=== PATIENT | male | born 1945 | race Caucasian/White ===

== ENCOUNTER 2025-04-16 09:38 | Outpatient (REF) | payer MEDICARE, SELFPAY | END 2025-04-16 09:39 | disposition home or self-care (01) | LOC: HO.HPHYSR 09:38 | PROVIDERS: Visit Provider Physical Medicine & Rehabilitation | DX: M46.1 Sacroiliitis, not elsewhere classified (principal); M53.3 Sacrococcygeal disorders, not elsewhere classified | CPT/HCPCS: 27096; J2003; J3301; Q9967 ==

== ENCOUNTER 2025-04-16 09:38 | Outpatient (AMB) | payer MEDICARE, SELFPAY ==
[2025-04-16 09:44] VITALS: BP 127/73; TEMP 36.7
--- NOTE | 2025-04-16 09:44 | A.PHYSOV_ITS ---
Vital Signs 04/16/25 09:44 Height 5 ft 10 in Weight 18 lb BMI 2.6 BP 127/73 Temp 98.1 F Intake Visit Reasons: Right Sacroiliac Joint Injection Intake Note: Patient is a 79 year old male in office today for a Right Sacroiliac Joint Injection. Allergies DOUGLAS Inhibitors Allergy (Unknown, Verified 04/16/25 09:47) Unknown atorvastatin Allergy (Unknown, Verified 04/16/25 09:47) Unknown [id number] Reductase Inhibitor Allergy (Unknown, Verified 04/16/25 09:47) Unknown [facility] Medical History (Updated 04/16/25 @ 09:50 by Parrish Hernandes DO) Sacroiliac inflammation Sacroiliac dysfunction Surgical History History of lumbar fusion (Unknown) History of carotid endarterectomy (Unknown) History of back surgery (Unknown) Social History Household Members: Spouse Alcohol intake: current Alcohol intake frequency: holidays/special occasions only Use of substances other than those prescribed or required for medical reasons: No Physical Exam Vital Signs: Last Vital Signs Temp 98.1 F 04/16/25 09:44 BP 127/73 04/16/25 09:44 BMI result Body Mass Index 2.6 Office Procedures AMB Sacroiliac Joint Injection AMB Sacroiliac Joint Injection Procedure Details: Procedure performed: Right sacroiliac joint injection Preop diagnosis: SI joint mediated pain, sacroiliitis Postop diagnosis: The same Anesthesia: Local After informed consent was obtained patient was brought into the procedure room and placed in prone position on the procedure table. Skin over lumbar sacral area was prepped and draped in the usual sterile manner. The inferior portion of the right sacroiliac joint was visualized utilizing fluoroscopy. 3.5 in 22 gauge spinal needle was introduced percutaneously and advanced into the joint. Needle placement was verified utilizing 0.5 cc of Omnipaque contrast solution. 2.5 cc of therapeutic solution containing 40 mg of triamcinolone and 2% lidocaine was injected after negative aspiration for blood. The C-arm was obliqued about 30? in the contralateral direction an area just medial the proximal portion of the sacroiliac joint was visualized. 3.5 in 22 gauge spinal needle was introduced percutaneously and advanced to enter the area. Once in place, needle placement was identified utilizing 1 cc of Omnipaque contrast solution. Total volume of 2.5 cc containing 40 mg of triamcinolone and 2% lidocaine was injected to block the lateral branches at the sacroiliac ligament. Radiation exposure was documented in the chart. Sacroiliac Joint Injections 89525 - use with FL Gd order: Right All charges added?: Procedure code (CPT) selection complete Office Meds Kenalog 40 mg/mL suspension for injection Performing Provider: Parrish Hernandes DO Per[facility] Administered by: Parrish Hernandes DO on 04/16/25 09:51 Dose Route Admin Location Dispensed Lot Number Expiration Date [facility] [employer] 80 mg intra-articular 2 mL [id number] [employer] Total Dispensed Waste 2 mL 0 % lidocaine (PF) 20 mg/mL (2 %) injection solution Performing Provider: Parrish Hernandes DO Performing Location: [facility] Administered by: Parrish Hernandes DO on 04/16/25 09:51 Dose Route Admin Location Dispensed Lot Number Expiration Date [facility] [employer] 120 mg intra-articular 10 mL [id number] [facility] Total Dispensed Waste 10 mL 40 % Omnipaque 300 300 mg iodine/mL intravenous solution Performing Provider: Parrish Hernandes DO Performing Location: [facility] Administered by: Parrish Hernandes DO on 04/16/25 09:51 Dose Route Admin Location Dispensed Lot Number Expiration Date [facility] [employer] 3 mL intra-articular 10 mL [id number] [facility] Total Dispensed Waste 10 mL 70 % Assessment & Plan Assessment & Plan (1) Sacroiliac dysfunction: Code(s): M53.3 - Sacrococcygeal disorders, not elsewhere classified Category: Medical Plan: Right SI joint injection (2) Sacroiliac inflammation: Code(s): M46.1 - Sacroiliitis, not elsewhere classified Category: Medical Plan: Right SI joint injection Plan Right SI joint injection Orders: Orders FL Guided Sacroiliac Jt Inj RT Today M46.1 - Sacroiliitis, not elsewhere classified, M53.3 - Sacrococcygeal disorders, not elsewhere classified AMB Sacroiliac Joint Injection Today M46.1 - Sacroiliitis, not elsewhere classified, M53.3 - Sacrococcygeal disorders, not elsewhere classified Coding Level of Care Code Procedure Only Diagnoses Sacroiliac dysfunction M53.3 Sacroiliac inflammation M46.1 CPT Codes AMB Sacroiliac Joint Injection - Hip intraarticular Injection - 30887: Right ([id number])
--- OUTSIDE RECORDS SUMMARY | 2025-04-16 10:18 | XMS_ITS | Continuity of Care Document ---
Author Organization [facility], Main Office Address [address] [place] [address] Care Team Providers Care Hot Punch Press Operator Name Role Phone SY MISHA Manager Global Communications NATALIE SANFORD Manager Global Communications JING MCKINNEY Referring Provider [phone] ERIC HANNON Hand Surgeon NAYA LARSON Orthopedic Surgeon DOMINGO TRUONG Merchandising Assistant [phone] MIKI DOUGLAS Primary Care Provider SUN PEREA Referring Provider [facility] Referring Provider Assessment No assessment recorded. Plan of Treatment Reminders Order Date Submit Date Provider Last Modified By Organization Details Last Modified Time Details Appointments FOLLOW UP 2025 11:30A M MIKI DOUGLAS MD Not available Not available Not available Lab None recorded . Referral None recorded . Procedures None recorded . Surgeries None recorded . Imaging None recorded . Medication Orders None recorded . Patient TargetsNo targets recorded. Patient InstructionsNo instructions recorded. Reason for Referral None Reported. Results Created Date Observation Date Name Description Value Unit Range Abnormal Flag Note LastModifiedBy Organization Detail LastModifiedTime 02/12/2002/15/2025 CBC WITH DIFFE RENTI AL/PL ATELE T WBC COMMEN T x10e3 /uL Test not perfo rmed due to the age of this speci men. Not Available [facility] ([facility]) [address], [place], [address], 02/16/2025 08:07:32 02/12/202025 CBC WITH DIFFE RENTI AL/PL ATELE T RBC TNP Test not perfo rmed Not Available [facility] ([facility]) [address], [place], [address], 02/16/2025 08:07:32 02/12/20 25 02/15/2025 CBC WITH DIFFE RENTI AL/PL ATELE T hemoglobin TNP Test not perfo rmed Not Available [facility] ([facility]) [address], [place], [address], 02/16/2025 08:07:32 02/12/20 25 02/15/2025 CBC WITH DIFFE RENTI AL/PL ATELE T hematocrit TNP Test not perfo rmed Not Available [facility] ([facility]) [address] [place], [address], 02/16/2025 08:07:32 02/12/20 25 02/15/2025 CBC WITH DIFFE RENTI AL/PL ATELE T MCV EQUIPMENT SERVICE ENGINEER Not Available [facility] ([facility]) [address] [place], [address], 02/16/2025 08:07:32 02/12/20 25 02/15/2025 CBC WITH DIFFE RENTI AL/PL ATELE T MCH EQUIPMENT SERVICE ENGINEER Not Available [facility] ([facility]) [address] [place], [address], 02/16/2025 08:07:32 02/12/20 25 02/15/2025 CBC WITH DIFFE RENTI AL/PL ATELE T MCHC EQUIPMENT SERVICE ENGINEER Not Available [facility] ([facility]) [address] [place], [address], 02/16/2025 08:07:32 02/12/20 25 02/15/2025 CBC WITH DIFFE RENTI AL/PL ATELE T RDW EQUIPMENT SERVICE ENGINEER Not Available [facility] ([facility]) [address] [place], [address], 02/16/2025 08:07:32 02/12/20 25 02/15/2025 CBC WITH DIFFE RENTI AL/PL ATELE T platelets TNP Test not perfo rmed Not Available [facility] ([facility]) [address], [place], [address], 02/16/2025 08:07:32 02/12/20 25 02/15/2025 CBC WITH DIFFE RENTI AL/PL ATELE T neutrophils TNP Test not perfo rmed Not Available [facility] ([facility]) [address], [place], [address], 02/16/2025 08:07:32 02/12/20 25 02/15/2025 CBC WITH DIFFE RENTI AL/PL ATELE T lymphs TNP Test not perfo rmed Not Available [facility] ([facility]) [address], [place], [address], 02/16/2025 08:07:32 02/12/20 25 02/15/2025 CBC WITH DIFFE RENTI AL/PL ATELE T monocytes TNP Test not perfo rmed Not Available [facility] ([facility]) [address], [place], [address], 02/16/2025 08:07:32 02/12/20 25 02/15/2025 CBC WITH DIFFE RENTI AL/PL ATELE T eos TNP Test not perfo rmed Not Available [facility] ([facility]) [address], [place], [address], 02/16/2025 08:07:32 02/12/20 25 02/15/2025 CBC WITH DIFFE RENTI AL/PL ATELE T basos EQUIPMENT SERVICE ENGINEER Not Available [facility] ([facility]) [address] [place], [address], 02/16/2025 08:07:32 02/12/20 25 02/15/2025 CBC WITH DIFFE RENTI AL/PL ATELE T immature cells EQUIPMENT SERVICE ENGINEER Not Available [facility] ([facility]) [address] [place], [address], 02/16/2025 08:07:32 02/12/20 25 02/15/2025 CBC WITH DIFFE RENTI AL/PL ATELE T neutrophils (absolute) EQUIPMENT SERVICE ENGINEER Not Available [facility] ([facility]) [address] [place], [address], 02/16/2025 08:07:32 02/12/20 25 02/15/2025 CBC WITH DIFFE RENTI AL/PL ATELE T lymphs (absolute) TNP Test not perfo rmed Not Available [facility] ([facility]) [address] [place], [address], 02/16/2025 08:07:32 02/12/20 25 02/15/2025 CBC WITH DIFFE RENTI AL/PL ATELE T monocytes(ab solute) EQUIPMENT SERVICE ENGINEER Not Available [facility] ([facility]) [address] [place], [address], 02/16/2025 08:07:32 02/12/20 25 02/15/2025 CBC WITH DIFFE RENTI AL/PL ATELE T eos (absolute) TNP Test not perfo rmed Not Available [facility] ([facility]) [address] [place], [address], 02/16/2025 08:07:32 02/12/20 25 02/15/2025 CBC WITH DIFFE RENTI AL/PL ATELE T baso (absolute) TNP Test not perfo rmed Not Available [facility] ([facility]) [address] [place], [address], 02/16/2025 08:07:32 02/12/20 25 02/15/2025 CBC WITH DIFFE RENTI AL/PL ATELE T immature granulocytes EQUIPMENT SERVICE ENGINEER Not Available [facility] ([facility]) [address], [place], [address], 02/16/2025 08:07:32 02/12/20 25 02/15/2025 CBC WITH DIFFE RENTI AL/PL ATELE T immature grans (abs) EQUIPMENT SERVICE ENGINEER Not Available [facility] ([facility]) [address], [place], [address], 02/16/2025 08:07:32 02/12/20 25 02/15/2025 CBC WITH DIFFE RENTI AL/PL ATELE T NRBC EQUIPMENT SERVICE ENGINEER Not Available [facility] ([facility]) [address], [place], [address], 02/16/2025 08:07:32 02/12/20 25 02/15/2025 CBC WITH DIFFE RENTI AL/PL ATELE T hematology comments: EQUIPMENT SERVICE ENGINEER Not Available [facility] ([facility]) [address], [place], [address], 02/16/2025 08:07:32 02/12/20 25 02/16/2025 IRON AND TIBC iron bind.cap.(TI BC) 322 ug/dL 250-45 0 normal Not Available [facility] ([facility]) [address], [place], [address], 02/16/2025 08:07:32 02/12/20 25 02/16/2025 IRON AND TIBC UIBC 240 ug/dL 111-34 3 normal Not Available [facility] ([facility]) [address], [place], [address], 02/16/2025 08:07:32 02/12/20 25 02/16/2025 IRON AND TIBC iron 82 ug/dL 38-169 normal Not Available [facility] ([facility]) [address], [place], [address], 02/16/2025 08:07:32 02/12/20 25 02/16/2025 IRON AND TIBC iron saturation 25 % 15-55 normal Not Available [facility] ([facility]) [address] [place], [address], 02/16/2025 08:07:32 02/12/2002/16/2025 BRIANNA TIN ferritin 328 NG/mL 30-400 normal Not Available [facility] ([facility]) [address], [place], [address], 02/16/2025 08:07:33 02/12/2002/15/2025 WRITT EN AUTHO RIZAT ION written authorizatio n Commen t Writt en Autho rizat ion Recei nisha. Autho rizat ion recei nisha from FELIPA Israel for Link Reque st on 02-15 Logge d by Ebonie pena Not Available [facility] ([facility]) [address], [place], [address], 02/16/2025 08:07:33 02/12/2002/15/[address] PROBL EM request problem COMMEN T Test not perfo rmed due to the age of this speci men. TEST: 69150 [id number] CBC With Diffe renti al/Pl atele t Not Available [facility] ([facility]) [address], [place], [address], 02/16/2025 08:07:33 02/12/2002/12/2025 BASIC METAB OLIC PANEL (8) glucose 82 mg/dL 70-99 normal Not Available [facility] ([facility]) [address] [place], [address], 02/17/2025 06:09:21 02/12/2002/12/2025 BASIC METAB OLIC PANEL (8) BUN 10 mg/dL 8-27 normal Not Available [facility] ([facility]) [address] [place], [address], 02/17/2025 06:09:21 02/12/20 25 02/12/2025 BASIC METAB OLIC PANEL (8) creatinine 0.94 mg/dL 0.76-1 .27 normal Not Available [facility] ([facility]) [address], [place], [address], 02/17/2025 06:09:21 02/12/2002/12/2025 BASIC METAB OLIC PANEL (8) eGFR 83 mL/mi n/1.7 3 >59 normal Not Available [facility] ([facility]) [address], [place], [address], 02/17/2025 06:09:21 02/12/2002/12/2025 BASIC METAB OLIC PANEL (8) BUN/creatini ne ratio 11 10-24 normal Not Available [facility] ([facility]) [address], [place], [address], 02/17/2025 06:09:21 02/12/2002/12/2025 BASIC METAB OLIC PANEL (8) sodium 138 mmol/ L 134-14 4 normal Not Available [facility] ([facility]) [address] [place], [address], 02/17/2025 06:09:21 02/12/2002/12/2025 BASIC METAB OLIC PANEL (8) potassium 4.2 mmol/ L 3.5-5. 2 normal Not Available [facility] ([facility]) [address] [place], [address], 02/17/2025 06:09:21 02/12/2002/12/2025 BASIC METAB OLIC PANEL (8) chloride 99 mmol/ L 96-106 normal Not Available [facility] ([facility]) [address] [place], [address], 02/17/2025 06:09:21 02/12/2002/12/2025 BASIC METAB OLIC PANEL (8) carbon dioxide, total 24 mmol/ L 20-29 normal Not Available [facility] ([facility]) [address] [place], [address], 02/17/2025 06:09:21 02/12/20 25 02/12/2025 BASIC METAB OLIC PANEL (8) calcium 9.7 mg/dL 8.6-10 .2 normal Not Available [facility] ([facility]) [address] [place], [address], 02/17/2025 06:09:21 02/12/20 25 02/12/2025 HEPAT IC FUNCT ION PANEL (7) protein, total 6.9 g/dL 6.0-8. 5 normal Not Available [facility] ([facility]) [address] [place], [address], 02/17/2025 06:09:22 02/12/20 25 02/12/2025 HEPAT IC FUNCT ION PANEL (7) albumin 4.4 g/dL 3.8-4. 8 normal Not Available [facility] ([facility]) [address] [place], [address], 02/17/2025 06:09:22 02/12/20 25 02/12/2025 HEPAT IC FUNCT ION PANEL (7) bilirubin, total 0.4 mg/dL 0.0-1. 2 normal Not Available [facility] ([facility]) [address] [place], [address], 02/17/2025 06:09:22 02/12/20 25 02/12/2025 HEPAT IC FUNCT ION PANEL (7) bilirubin, direct 0.11 mg/dL 0.00-0 .40 normal Not Available [facility] ([facility]) [address] [place], [address], 02/17/2025 06:09:22 02/12/20 25 02/12/2025 HEPAT IC FUNCT ION PANEL (7) alkaline phosphatase 114 IU/L 47-123 normal Ple ase note refer ence inter waldo llanes e Not Available [facility] ([facility]) [address] [place], [address], 02/17/2025 06:09:22 02/12/20 25 02/12/2025 HEPAT IC FUNCT ION PANEL (7) AST (SGOT) 31 IU/L 0-40 normal Not Available [facility] ([facility]) [address] [place], [address], 02/17/2025 06:09:22 02/12/20 25 02/12/2025 HEPAT IC FUNCT ION PANEL (7) ALT (SGPT) 27 IU/L 0-44 normal Not Available [facility] ([facility]) [address] [place], [address], 02/17/2025 06:09:22 02/12/20 25 02/17/2025 ALK PHOS ISOEN ZYME liver fraction: 64 % 13-88 Not Available [facility] ([facility]) [address] [place], [address], 02/17/2025 06:09:22 02/12/20 25 02/17/2025 ALK PHOS ISOEN ZYME bone fraction: 34 % 12-68 Not Available [facility] ([facility]) [address] [place], [address], 02/17/2025 06:09:22 02/12/20 25 02/17/2025 ALK PHOS ISOEN ZYME intestinal frac.: 2 % 0-18 Not Available [facility] ([facility]) [address] [place], [address], 02/17/2025 06:09:22 02/12/20 25 02/12/2025 ESR-W ES+CR P sedimentatio n rate-westerg angela 3 mm/HR 0-30 normal Not Available [facility] ([facility]) [address] [place], [address], 02/17/2025 06:09:23 02/12/2002/12/2025 ESR-W ES+CR P C-reactive protein, quant 1 mg/L 0-10 normal Not Available [facility] ([facility]) [address], [place], [address], 02/17/2025 06:09:23 02/12/2002/12/2025 AFP, SERUM , TUMOR MARKE R AFP, serum, tumor marker 2.9 NG/mL 0.0-8. 4 normal Marissa Diagn ostic s Elect marissa milum inesc ence Immun oassa y (ECLI A) Value s obtai addi with diffe rent assay metho ds or kits canno t be used inter llanes eably . Resul ts canno t be inter prete d as absol algaaciq evide nce of the prese nce or absen ce of lenard ambrosio se. This test is not inter preta ble in pregn ant femal es. Not Available [facility] ([facility]) [address], [place], [address], 02/17/2025 06:09:23 02/12/2002/12/2025 HIV AB/P2 4 AG WITH REFLE X HIV Ab/P24 Ag screen Non Reacti ve non reacti ve HIV-1 /HIV- 2 antib odies and HIV-1 p24 antig en were NOT detec kath. There is no labor atory evide nce of HIV infec tion. HIV Negat annetta Not Available [facility] ([facility]) [address], [place], [address], 02/17/2025 06:09:24 02/12/2002/12/2025 GGT WITH REFLE X AMYLA SE/LI PASE GGT 20 IU/L 0-65 normal Not Available [facility] ([facility]) [address], [place], [address], 02/17/2025 06:09:24 02/13/20 25 02/12/2025 UA/M W/RFL X CULTU RE, ROUTI NE specific gravity 1.015 1.005- 1.030 normal Not Available [facility] ([facility]) [address], [place], [address], 02/15/2025 12:05:59 02/13/20 25 02/12/2025 UA/M W/RFL X CULTU RE, ROUTI NE pH 7.0 5.0-7. 5 normal Not Available [facility] ([facility]) [address], [place], [address], 02/15/2025 12:05:59 02/13/20 25 02/12/2025 UA/M W/RFL X CULTU RE, ROUTI NE urine-color Yellow yellow Not Available [facility] ([facility]) [address], [place], [address], 02/15/2025 12:05:59 02/13/20 25 02/12/2025 UA/M W/RFL X CULTU RE, ROUTI NE appearance Clear clear Not Available [facility] ([facility]) [address] [place], [address], 02/15/2025 12:05:59 02/13/20 25 02/12/2025 UA/M W/RFL X CULTU RE, ROUTI NE WBC esterase Negati ve negati ve Not Available [facility] ([facility]) [address] [place], [address], 02/15/2025 12:05:59 02/13/20 25 02/12/2025 UA/M W/RFL X CULTU RE, ROUTI NE protein Negati ve negati ve/tra ce Not Available [facility] ([facility]) [address] [place], [address], 02/15/2025 12:05:59 09/19/02/12/2025 UA/M W/RFL X CULTU RE, ROUTI NE glucose Negati ve negati ve Not Available [facility] ([facility]) [address] [place], [address], 02/15/2025 12:05:59 02/13/20 25 02/12/2025 UA/M W/RFL X CULTU RE, ROUTI NE ketones Negati ve negati ve Not Available [facility] ([facility]) [address] [place], [address], 02/15/2025 12:05:59 02/13/2002/12/2025 UA/M W/RFL X CULTU RE, ROUTI NE occult blood Negati ve negati ve Not Available [facility] ([facility]) [address] [place], [address], 02/15/2025 12:05:59 02/13/20 25 02/12/2025 UA/M W/RFL X CULTU RE, ROUTI NE bilirubin Negati ve negati ve Not Available [facility] ([facility]) [address] [place], [address], 02/15/2025 12:05:59 02/13/20 25 02/12/2025 UA/M W/RFL X CULTU RE, ROUTI NE urobilinogen ,semi-qn 0.2 mg/dL 0.2-1. 0 normal Not Available [facility] ([facility]) [address] [place], [address], 02/15/2025 12:05:59 02/13/20 25 02/12/2025 UA/M W/RFL X CULTU RE, ROUTI NE nitrite, urine Negati ve negati ve Not Available [facility] ([facility]) [address] [place], [address], 02/15/2025 12:05:59 02/13/20 25 02/12/2025 UA/M W/RFL X CULTU RE, ROUTI NE microscopic examination Commen t Micro scopi c follo ws if indic ated. Not Available [facility] ([facility]) [address], [place], [address], 02/15/2025 12:05:59 02/13/20 25 02/12/2025 UA/M W/RFL X CULTU RE, ROUTI NE microscopic examination See below: Micro scopi c was indic ated and was perfo rmed. Not Available [facility] ([facility]) [address], [place], [address], 02/15/2025 12:05:59 02/13/20 25 02/13/2025 UA/M W/RFL X CULTU RE, ROUTI NE WBC None seen /hpf 0 - 5 Not Available [facility] ([facility]) [address], [place], [address], 02/15/2025 12:05:59 02/13/20 25 02/13/2025 UA/M W/RFL X CULTU RE, ROUTI NE RBC 0-2 /hpf 0 - 2 Not Available [facility] ([facility]) [address], [place], [address], 02/15/2025 12:05:59 02/13/20 25 02/13/2025 UA/M W/RFL X CULTU RE, ROUTI NE epithelial cells (non renal) None seen /hpf 0 - 10 Not Available [facility] ([facility]) [address], [place], [address], 02/15/2025 12:05:59 02/13/20 25 02/13/2025 UA/M W/RFL X CULTU RE, ROUTI NE epithelial cells (renal) EQUIPMENT SERVICE ENGINEER Not Available [facility] ([facility]) [address], [place], [address], 02/15/2025 12:05:59 09/19/02/13/2025 UA/M W/RFL X CULTU RE, ROUTI NE casts None seen /lpf none seen Not Available [facility] ([facility]) [address], [place], [address], 02/15/2025 12:05:59 02/13/20 25 02/13/2025 UA/M W/RFL X CULTU RE, ROUTI NE cast type EQUIPMENT SERVICE ENGINEER Not Available [facility] ([facility]) [address], [place], [address], 02/15/2025 12:05:59 02/13/2002/13/2025 UA/M W/RFL X CULTU RE, ROUTI NE crystals EQUIPMENT SERVICE ENGINEER Not Available [facility] ([facility]) [address], [place], [address], 02/15/2025 12:05:59 02/13/20 25 02/13/2025 UA/M W/RFL X CULTU RE, ROUTI NE crystal type EQUIPMENT SERVICE ENGINEER Not Available [facility] ([facility]) [address], [place], [address], 02/15/2025 12:05:59 02/13/20 25 02/13/2025 UA/M W/RFL X CULTU RE, ROUTI NE mucus threads EQUIPMENT SERVICE ENGINEER Not Available [facility] ([facility]) [address], [place], [address], 02/15/2025 12:05:59 02/13/20 25 02/13/2025 UA/M W/RFL X CULTU RE, ROUTI NE bacteria Modera te none seen/f ew abnormal Not Available [facility] ([facility]) [address] [place], [address], 02/15/2025 12:05:59 02/13/20 25 02/13/2025 UA/M W/RFL X CULTU RE, ROUTI NE yeast EQUIPMENT SERVICE ENGINEER Not Available [facility] ([facility]) [address] [place], [address], 02/15/2025 12:05:59 02/13/20 25 02/13/2025 UA/M W/RFL X CULTU RE, ROUTI NE trichomonas EQUIPMENT SERVICE ENGINEER Not Available [facility] ([facility]) [address], [place], [address], 02/15/2025 12:05:59 02/13/20 25 02/13/2025 UA/M W/RFL X CULTU RE, ROUTI NE comment EQUIPMENT SERVICE ENGINEER Not Available [facility] ([facility]) [address], [place], [address], 02/15/2025 12:05:59 02/13/20 25 02/13/2025 UA/M W/RFL X CULTU RE, ROUTI NE urinalysis reflex Commen t This speci men has refle xed to a Urine Cultu re. Not Available [facility] ([facility]) [address], [place], [address], 02/15/2025 12:05:59 02/13/20 25 02/15/2025 UA/M W/RFL X CULTU RE, ROUTI NE urine culture, routine Final report abnormal Not Available [facility] ([facility]) [address], [place], [address], 02/15/2025 12:05:59 02/13/20 25 02/15/2025 UA/M W/RFL X CULTU RE, ROUTI NE result 1 Entero coccus faecal is abnormal Enter ococc i susce ptibl e to penic illin are predi ctabl y susce ptibl e to ampic illin , amoxi cilli n, ampic illin -sulb actam , amoxi cilli n-cla vulan ate, and piper acill in-ta zobac fragoso for non-b eta-l actam ase produ cing enter ococc i. (CLSI 2018) For Enter ococc us speci es, amino glyco sides (exce pt for high- level resis tance scree lore) , cepha lospo rins, clind amyci n, and trime thopr im-hernández lfame thoxa zole are not effec tive clini pily . (CLSI , M100- S26, 2016) Great er than 100,0 00 colon y formi ng units per mL Not Available [facility] ([facility]) [address], [place], [address], 02/15/2025 12:05:59 02/13/20 25 02/15/2025 UA/M W/RFL X CULTU RE, ROUTI NE antimicrobia l susceptibili ty Commen t S = Susce ptibl e; I = Inter media te; R = Resis tant P = Posit annetta; N = Negat annetta MICS are expre ssed in micro grams per mL Antib iotic RSLT# 1 RSLT# 2 RSLT# 3 RSLT# 4 Cipro floxa bailey R Levof loxac in R Nitro furan toin S Penic illin S Tetra cycli ne R Vanco mycin S Not Available [facility] ([facility]) [address], [place], [address], 02/15/2025 12:05:59 01/27/20 25 01/23/2025 US, abdom en, limit ed US RUQ Reason : R10.9 UNSPEC IFIED ABDOMI NAL PAIN COMPAR TRISTEN: None. FINDIN GS: Liver: Diffus keshia echoge madhav parenc hyma. Visual izatio n limite d by overly ing bowel gas. No suspic ious lesion . Smooth hepati c contou r. Main portal vein patent with normal hepato petal direct ion of flow. Gallbl adder: No gallst ones. Normal wall thickn ess. No perich olecys tic fluid. Negati ve Umana sign. Biliar y Tree: No intrah epatic or extrah epatic bile duct dilati on is identi fied. Common duct measur es: 0.6 cm. Pancre as: Mostly obscur ed by overly ing bowel gas. No abnorm ality in the visual ized portio ns of the pancre as. Right kidney : 11.1 cm in length . Normal parenc hymal echote xture with cortic al thinni ng. No hydron ephros is, stone or mass. IMPRES ELSA: Study somewh at limite d by overly ing bowel gas. No cholel ithias is or acute cholec ystiti s. Echoge madhav liver likely repres enting hepati c steato sis. WSN: [id number] Orderi ng Physic gasper: Reagan Urbano ie Dictat ed By: Buster Bui MD Dictat ed Date/T lake: 9:08 am Review ed By: Buster Bui MD Signed By: Buster Bui MD Signed Date/T lake: 9:08 am Transc ribed By: ISELA Transc ribed Date/T lake: 8:33 am Patien t Class: Outpat ient [id number] [facility] ([facility]) [address], [place], [address], 02/01/2025 10:40:34 02/14/20 25 02/11/2025 XR, chest , 2 view No observ ation record ed. Rayus [facility] [place] [address] [facility] [address], [place], [address], 02/17/2025 13:17:41 03/05/20 25 03/05/2025 CT, abdom en + pelvi s, w/ contr ast CT Abd/Pe lvis W/ IV + Oral Contra st Reason : ABNORM AL WEIGHT LOSS R63.4; Clinic al Questi on(s): Other: TECHNI QUE: Spiral CT throug h the abdome n and pelvis with IV contra st format kath in 3 planes . 100 cc of Isovue 300 100cc vials was admini stered intrav enousl y. This study was perfor med with oral contra st. Weight -based protoc ol using automa tic tube modula tion was used to optimi ze exposu re parame ters. CTDIvo l Body: 15.17 mGy, DLP Body: 815 mGy*cm . COMPAR TRISTEN: None. FINDIN GS: Record Clerk Salesperson View Findin gs, Lines and Tubes: None. Visual ized Chest: Mild depend ent atelec tasis and/or scarri ng. No pleura l effusi on. The heart is normal in size. No perica rdial effusi on. Diaphr agm: Normal . Liver: Normal morpho logy and attenu ation. No suspic ious lesion . Gallbl adder: No CT eviden ce of gallbl adder pathol ogy. Bile ducts: No biliar y ductal dilati on. Spleen : Normal . Pancre as: Normal . Adrena l glands : Normal . Kidney s and ureter s: Renal cortic al thinni ng. No hydron ephros is, stones , or suspic ious masses . Bladde r: Normal . Reprod uctive organs : Prosta tomega ly measur ing 5 cm in transv erse diamet er. Stomac h, small bowel, and large bowel: No abnorm al bowel wall thicke lore or disten tion. Coloni c divert iculos is withou t eviden ce of acute divert iculit is. Append ix: Normal . Perito neum and retrop eriton eum: No ascite s or pneumo perito neum. No omenta l or mesent joseph lesion s. Lymph nodes: No enlarg ed lymph nodes. Blood vessel s: Severe athero sclero tic vascul ar calcif icatio n but no aneury sm. No eviden ce of venous thromb osis. Abdomi nal and pelvic wall: Small fat-co ntaini ng right inguin al hernia . Bones: Status post fusion of L5-S1 with juan listhe sis and cement handler ior decomp ressio n. Modera te chroni c appear ing compre ssion deform ity of L2. 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 IMPRES ELSA: No acute abnorm ality within the abdome n or pelvis . WSN: [id number] Orderi ng Physic gasper: Reagan Urbano Dictat ed By: Dariusz Calix MD Dictat ed Date/T lake: 9:31 pm Review ed By: Vidhya dennis MD, Dariusz Robles Signed By: Dariusz Calix MD Signed Date/T lake: 9:31 pm Transc ribed By: CSB Transc ribed Date/T lake: 9:21 pm Patien t Class: Outpat ient [email or web address] [facility] (Outpt Imaging) [address] , [place], [address], 03/18/2025 17:00:00 03/10/2002/22/2025 trans thora cic echoc ardio gram (TTE) compl ete (cont rast/ bubbl e/3D PRN) No observ ation record ed. [address] [address] [place], [address], 03/10/2025 10:11:23 03/11/2002/22/2025 , echoc ardio gram No observ ation record ed. [address] [facility], [place], [address], 03/12/2025 07:35:33 03/25/20 ECG 12-le ad No observ ation record ed. [address] [address] [place], [address], 03/25/2025 18:24:07 Result Notes None recorded. Problems Name Problem SNOMED Code Status Onset Date Resolution Date Notes Provider Name and Address Organization Details Recorded Time Dizzines s 948427198 Completed 12/03/2016 KODY Eugene [facility] 7 09:34:04 Disorder of vision 02027845 Completed 12/03/2016 Aracely paul [facility] 7 09:58:43 Hypercho lesterol emia 03901010 Active Aracely paul [facility] 6 09:45:40 Carotid artery stenosis 73547143 Active Emigdio Casas PA-C [address] [facility] [address], [place], [address], [facility] 6 10:19:45 Eruption [id number] Completed 12/03/2016 [facility] 09:[facility] General examinat ion of patient Completed 200812/31/2013 RECORDED 01/18/20 09 3:07PM BY RUBEN MORALES MA, BIRDIEATI ON/ADDEN DUM Emigdio ELIAS-C [address], [place], [address], [facility] 6 10:19:45 General examinat ion of patient Completed 200801/01/2014 RECORDED 01/18/20 09 3:07PM BY RUBEN MORALES MA, BIRDIEATI ON/ADDEN DUM Emigdio ELIAS-C [address], [place], [address], [facility] 6 10:19:45 General examinat ion of patient Completed 200812/08/2013 RECORDED 01/18/20 09 3:07PM BY RUBEN MORALES MA, ANNOTATI ON/ADDEN MAYTE ELIAS-C [address], [place], [address], [facility] 6 10:19:45 Influenz a vaccine needed [id number] 06 Completed 201012/31/2013 DATE: 04/30/20 11; RECORDED 08/22/19 13 10:53AM BY AMARJIT EUGENE ON/GAURAV ELIAS-C [address] [facility] [address], [place], [address], [facility] 6 10:19:45 Influenz a vaccine needed 90920658559 06 Completed 201001/01/2014 DATE: 04/30/20 11; RECORDED 08/22/19 13 10:53AM BY AMARJIT EUGENE ON/ADDEN DUM Emigdio Augusto PA-C [address], [place], [address], [facility] 6 10:19:45 Influenz a vaccine needed 83383859981 06 Completed 201012/08/2013 DATE: 04/30/20 11; RECORDED 08/22/19 13 10:53AM BY AMARJIT EUGENE ON/ADDEN DUM Emigdio Augusto ELIAS-C [address], [place], [address], [facility] 6 10:19:45 Screenin g for malignan t neoplasm of colon Completed 201212/31/2013 RECORDED 08/22/19 13 10:53AM BY AMARJIT EUGENE ON/ADDEN DUM KODY Eugene, [facility] 7 09:33:55 Contact dermatit is 61306971 Completed 201212/31/2013 RECORDED 08/22/19 13 10:55AM BY AMARJIT EUGENE ON/ADDEN DUM KODY Eugene, [facility] 7 09:34:01 Eruption [id number] Completed 201212/31/2013 RECORDED 08/22/19 13 10:53AM BY AMARJIT EUGENE ON/ADDEN DUM KODY Eugene, [facility] 7 09:33:51 Screenin g for malignan t neoplasm of colon Completed 201201/01/2014 RECORDED 08/22/19 13 10:53AM BY AMARJIT EUGENE ON/ADDEN DUM KODY Eugene, [facility] 7 09:33:55 Contact dermatit is 59414279 Completed 201201/01/2014 RECORDED 08/22/19 13 10:55AM BY AMARJIT EUGENE ON/ADDEN DUM KODY Eugene, [facility] 7 09:34:01 Eruption [id number] Completed 201201/01/2014 RECORDED 08/22/19 13 10:53AM BY AMARJIT EUGENE ON/ADDEN DUM KODY Eugene, [facility] 7 09:33:51 Contact dermatit is 08983535 Completed 201212/08/2013 RECORDED 08/22/19 13 10:55AM BY AMARJIT EUGENE ON/ADDEN DUM KODY Eugene, [facility] 7 09:34:01 Eruption [id number] Completed 201212/08/2013 RECORDED 08/22/19 13 10:53AM BY AMARJIT EUGENE ON/ADDEN DUM KODY Eugene, [facility] 7 09:33:51 Rhabdomy olysis 944899876 Completed 201212/08/2013 RECORDED 08/22/19 13 10:53AM BY AMARJIT EUGENE ON/ADDEN DUM Aracely paul, [facility] 9 10:22:46 Adult health examinat ion Completed 201212/31/2013 IMPRESSI ON: EXAM TODAY, DOING GREAT, IS ACTIVE SCREENIN G UTD, WILL GET COLONOSC OPY; RECORDED 02/05/20 13 10:37AM BY AMARJIT EUGENE ON/ADDEN DUM KODY Eugene, [facility] 7 09:45:31 Adult health examinat ion Completed 201201/01/2014 IMPRESSI ON: EXAM TODAY, DOING GREAT, IS ACTIVE SCREENIN G UTD, WILL GET COLONOSC OPY; RECORDED 02/05/20 13 10:37AM BY AMARJIT EUGENE ON/ADDEN DUM KODY Eugene, [facility] 7 09:45:31 Adult health examinat ion Completed 201212/08/2013 IMPRESSI ON: EXAM TODAY, DOING GREAT, IS ACTIVE SCREENIN G UTD, WILL GET COLONOSC OPY; RECORDED 02/05/20 13 10:37AM BY AMARJIT EUGENE ON/ADDEN DUM Yuki Sanches MA [facility] 7 09:45:31 Active or passive immuniza tion Completed 201312/31/2013 RECORDED 06/29/19 14 9:09AM BY ARACELY Najera MD, OFFICE VISIT Emigdio Casas PA-C [address], [place], [address], [facility] 6 10:19:45 Psychose xual dysfunct ion associat ed with inhibite d libido 006359373 Completed 201312/31/2013 RECORDED 06/29/19 14 8:37AM BY AMARJIT EUGENE ON/ADDEN DUM Emigdio Casas PA-C [address], [place], [address], [facility] 6 10:19:45 Active or passive immuniza tion Completed 201301/01/2014 RECORDED 06/29/19 14 9:09AM BY ARACELY Najrea MD, OFFICE VISIT Emigdio Casas PA-C [address], [place], [address], [facility] 6 10:19:45 Psychose xual dysfunct ion associat ed with inhibite d libido 330828979 Completed 201301/01/2014 RECORDED 06/29/19 14 8:37AM BY AMARJIT EUGENE ON/ADDEN DUM Emigdio Casas PA-C [address], [place], [address], [facility] 6 10:19:45 Active or passive immuniza tion Completed 201312/08/2013 RECORDED 06/29/19 14 9:09AM BY ARACELY Najera MD, OFFICE VISIT Emigdio Casas PA-C [address], [facility] [place], [address], [facility] 6 10:19:45 Psychose xual dysfunct ion associat ed with inhibite d libido 617043080 Completed 201312/08/2013 RECORDED 06/29/19 14 8:37AM BY AMARJIT EUGENE ON/ADDEN DUM Emigdio Casas PA-C [address] [facility] [address], [facility] [place], [address], [facility] 6 10:19:45 Screenin g for malignan t neoplasm of colon Completed 201312/08/2013 RECORDED 07/28/19 14 8:05AM BY AMARJIT EUGENE ON/ADDEN DUM Yuki Sanches MA null, [facility] 7 09:33:55 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 77455096 Completed 201312/31/2013 IMPRESSI ON: I REVIEWED HX, MRI REPORT AND EMG FINDINGS WITH PT, HE IS FINE, NO WWEAKNES S, NO FASICULA TIONS OR NECK PAIN, MOST LIKELY CERVICAL CORD DCOMPRES ELSA WAS THE CASUE OF HIS SYMPTOMS IN THE PAST WITH MUSCLE WEAKNESS AND FASICUAL TIONS, PT TO RETURN IF ANY RETURN OF SYMPTOMS , AVOID NECK TRAUMA, NO FURTHER WORKUP; RECORDED 08/18/19 14 8:10AM BY AMARJIT JEAN ON/ADDEN DUM Emigdio Casas PA-C [address] [facility] [address], [place], [address], [facility] 6 10:19:45 Dizzines s and giddines s 041237289 Completed 201312/31/2013 IMPRESSI ON: LIKELY FROM INCREASE D LORAZEPA M DOSE. WILL TRY TO CHANGE TO TEMAZAPA M. SEE IF CAN GET BY THE INSURANC E ISSUES; RECORDED 08/18/19 14 8:10AM BY AMARJIT JEAN ON/ADDEN DUM Emigdio Casas PA-C [address], [place], [address], [facility] 6 10:19:45 Measurem ent finding Completed 201312/31/2013 IMPRESSI ON: HIGHEST WAS 100, THEN 550, HAS NOT BEEN CHECKED IN MONTHS, NOT ON ANY CHOLESTE ROL MEDS, CHECK CPK; RECORDED 08/18/19 14 8:10AM BY AMARJIT JEAN ON/ADDEN DUM Emigdio Tellezden PA-C [address], [place], [address], [facility] 6 10:19:45 Abnormal involunt chucky movement 765532357 Completed 201312/31/2013 IMPRESSI ON: EMG THIS WEEK; RECORDED 08/18/19 14 8:10AM BY AMARJIT JEAN ON/GAURAV Rosaswyatt Tellezvanessa ELIAS-C [address], [place], [address], [facility] 6 10:19:45 Malaise and fatigue 540598430 Completed 201312/31/2013 RESOLVED DATE: 08/18/19 14; RECORDED 08/18/19 14 8:10AM BY AMARJIT JEAN ON/ADDPEDRO Rosaswyatt Tellezvanessa ELIAS-C [address] [facility] [address], [place], [address], [facility] 6 10:19:45 Pure hypercho lesterol emia 512705728 Completed 201312/31/2013 RECORDED 08/18/19 14 8:10AM BY AMARJIT JEAN ON/ADDPEDRO Rosaswyatt Tellezvanessa ELIAS-C [address] [facility] [address], [place], [address], [facility] 6 10:19:45 Insomnia 128942335 Completed 201312/31/2013 IMPRESSI ON: DOWN TO ONE TEMAZEPA M FOR SLEEP; RECORDED 08/18/19 14 8:10AM BY BIRDIE JEANATI ON/ADDEN DUM [facility] 8 08:33:08 Fibromyo sitis 27188206 Completed 201312/31/2013 RECORDED 08/18/19 14 8:10AM BY BIRDIE JEANATI ON/ADDEN DUM Emigdio Casas PA-C [address], [place], [address], [facility] 6 10:19:45 Immuniza tion refused Completed 201312/31/2013 RECORDED 08/18/19 14 8:10AM BY BIRDIE JEANATI ON/ADDEN DUM Emigdio Casas PA-C [address], [place], [address], [facility] 6 10:19:45 Disorder of skin and/or subcutan eous tissue 36697628 Completed 201312/31/2013 IMPRESSI ON: RIGHT LATERAL THIGH REFER TO DERM FOR EVAL, HE WILL SET UP; RECORDED 08/18/19 14 8:10AM BY AMARJIT JEAN ON/ADDEN DUM Emigdio ELIAS-C [address], [place], [address], [facility] 6 10:19:45 Dermatop hytosis of the perianal area Completed 201312/31/2013 RECORDED 08/18/19 14 8:10AM BY AMARJIT JEAN ON/ADDEN DUM Emigdio Casas PA-C [address], [place], [address], [facility] 6 10:19:45 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 61007650 Completed 201301/01/2014 IMPRESSI ON: I REVIEWED HX, MRI REPORT AND EMG FINDINGS WITH PT, HE IS FINE, NO WWEAKNES S, NO FASICULA TIONS OR NECK PAIN, MOST LIKELY CERVICAL CORD DCOMPRES ELSA WAS THE CASUE OF HIS SYMPTOMS IN THE PAST WITH MUSCLE WEAKNESS AND FASICUAL TIONS, PT TO RETURN IF ANY RETURN OF SYMPTOMS , AVOID NECK TRAUMA, NO FURTHER WORKUP; RECORDED 08/18/19 14 8:10AM BY AMARJIT JEAN ON/ADDEN DUM Emigdio ELIAS-C [address] [facility] [address], [place], [address], [facility] 6 10:19:45 Dizzines s and giddines s 059949245 Completed 201301/01/2014 IMPRESSI ON: LIKELY FROM INCREASE D LORAZEPA M DOSE. WILL TRY TO CHANGE TO TEMAZAPA M. SEE IF CAN GET BY THE INSURAN E ISSUES; RECORDED 08/18/19 14 8:10AM BY AMARJIT JEAN ON/ADDEN DUM Emigdio ELIAS-C [address] [facility] [address], [place], [address], [facility] 6 10:19:45 Measurem ent finding Completed 201301/01/2014 IMPRESSI ON: HIGHEST WAS 100, THEN 550, HAS NOT BEEN CHECKED IN MONTHS, NOT ON ANY CHOLESTE ROL MEDS, CHECK CPK; RECORDED 08/18/19 14 8:10AM BY AMARJIT JEAN ON/ADDEN DUM Emigdio ELIAS-C [address] [facility] [address], [place], [address], [facility] 6 10:19:45 Abnormal involunt chucky movement 738342333 Completed 201301/01/2014 IMPRESSI ON: EMG THIS WEEK; RECORDED 08/18/19 14 8:10AM BY AMARJIT JEAN ON/GAURAV ELIAS-C [address] [facility] [address], [place], [address], [facility] 6 10:19:45 Malaise and fatigue 277169951 Completed 201301/01/2014 RESOLVED DATE: 08/18/19 14; RECORDED 08/18/19 14 8:10AM BY BIRDIE JEANATI ON/ADDEN DUM Emigdio Tellezden PA-C [address], [place], [address], [facility] 6 10:19:45 Pure hypercho lesterol emia 458235827 Completed 201301/01/2014 RECORDED 08/18/19 14 8:10AM BY NATALIE PATINO I ANNOTATI ON/ADDEN DUM Emigdio Tellezden PA-C [address], [place], [address], [facility] 6 10:19:45 Insomnia 804289979 Completed 201301/01/2014 IMPRESSI ON: DOWN TO ONE TEMAZEPA M FOR SLEEP; RECORDED 08/18/19 14 8:10AM BY BIRDIE JEANATI ON/ADDEN DUM Wendy Key MA null, [facility] 8 08:33:08 Fibromyo sitis 73583741 Completed 201301/01/2014 RECORDED 08/18/19 14 8:10AM BY BIRDIE JEANATI ON/ADDEN DUM Emigdio Casas PA-C [address], [place], [address], [facility] 6 10:19:45 Immuniza tion refused Completed 201301/01/2014 RECORDED 08/18/19 14 8:10AM BY BIRDIE JEANATI ON/ADDEN DUM Emigdiowyatt Tellezden PA-C [address], [place], [address], [facility] 6 10:19:45 Disorder of skin and/or subcutan eous tissue 56332775 Completed 201301/01/2014 IMPRESSI ON: RIGHT LATERAL THIGH REFER TO DERM FOR EVAL, HE WILL SET UP; RECORDED 08/18/19 14 8:10AM BY AMARJIT JEAN ON/ADDPEDRO ELIAS-C [address], [place], [address], [facility] 6 10:19:45 Dermatop hytosis of the perianal area Completed 201301/01/2014 RECORDED 08/18/19 14 8:10AM BY AMARJIT JEAN ON/ADDEN MAYTE ELIAS-C [address], [facility] [place] [place], [address], [facility] 6 10:19:45 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 54706715 Completed 201312/08/2013 IMPRESSI ON: I REVIEWED HX, MRI REPORT AND EMG FINDINGS WITH PT, HE IS FINE, NO WWEAKNES S, NO FASICULA TIONS OR NECK PAIN, MOST LIKELY CERVICAL CORD DCOMPRES ELSA WAS THE CASUE OF HIS SYMPTOMS IN THE PAST WITH MUSCLE WEAKNESS AND FASICUAL TIONS, PT TO RETURN IF ANY RETURN OF SYMPTOMS , AVOID NECK TRAUMA, NO FURTHER WORKUP; RECORDED 08/18/19 14 8:10AM BY AMARJIT JEAN ON/GAURAV ELIAS-C [address] [facility] [address], [place], [address], [facility] 6 10:19:45 Dizzines s and giddines s 261426982 Completed 201312/08/2013 IMPRESSI ON: LIKELY FROM INCREASE D LORAZEPA M DOSE. WILL TRY TO CHANGE TO TEMAZAPA M. SEE IF CAN GET BY THE INSURANC E ISSUES; RECORDED 08/18/19 14 8:10AM BY AMARJIT JEAN ON/GAURAV ELIAS-C [address] [facility] [address], [place], [address], [facility] 6 10:19:45 Measurem ent finding Completed 201312/08/2013 IMPRESSI ON: HIGHEST WAS 100, THEN 550, HAS NOT BEEN CHECKED IN MONTHS, NOT ON ANY CHOLESTE ROL MEDS, CHECK CPK; RECORDED 08/18/19 14 8:10AM BY AMARJIT JEAN ON/ADDEN DUM Emigdio ELIAS-C [address], [place], [address], [facility] 6 10:19:45 Abnormal involunt chucky movement 953042948 Completed 201312/08/2013 IMPRESSI ON: EMG THIS WEEK; RECORDED 08/18/19 14 8:10AM BY AMARJIT JEAN ON/ADDEN DUM Emigdio Casas PA-C [address], [place], [address], [facility] 6 10:19:45 Malaise and fatigue 444896423 Completed 201312/08/2013 RESOLVED DATE: 08/18/19 14; RECORDED 08/18/19 14 8:10AM BY AMARJIT JEAN ON/ADDEN DUM Emigdio ELIAS-C [address], [place], [address], [facility] 6 10:19:45 Pure hypercho lesterol emia 522798523 Completed 201312/08/2013 RECORDED 08/18/19 14 8:10AM BY AMARJIT JEAN ON/ADDEN DUM Emigdio ELIAS-C [address] [facility] [address], [place], [address], [facility] 6 10:19:45 Insomnia 508533084 Completed 201312/08/2013 IMPRESSI ON: DOWN TO ONE TEMAZEPA M FOR SLEEP; RECORDED 08/18/19 14 8:10AM BY AMARJIT JEAN ON/ADDEN DUM Wendy Key MA null, [facility] 8 08:33:08 Fibromyo sitis 89975227 Completed 201312/08/2013 RECORDED 08/18/19 14 8:10AM BY NATALIE PATINO I, AMARJIT ON/ADDEN DUM Emigdio Casas PA-C [address], [place], [address], [facility] 6 10:19:45 Immuniza tion refused Completed 201312/08/2013 RECORDED 08/18/19 14 8:10AM BY BIRDIE JEANATI ON/ADDEN DUM Emigdio Casas PA-C [address], [place], [address], [facility] 6 10:19:45 History of clinical finding in subject 473626302 Completed 201312/03/2016 RECORDED 08/18/19 14 8:11AM BY NATALIE PATINO I, OFFICE VISIT Yuki Sanches MA null, [facility] 7 09:34:07 Disorder of skin and/or subcutan eous tissue 51547339 Completed 201312/08/2013 IMPRESSI ON: RIGHT LATERAL THIGH REFER TO DERM FOR EVAL, HE WILL SET UP; RECORDED 08/18/19 14 8:10AM BY AMARJIT JEAN ON/ADDEN DUM Emigdio Casas PA-C [address], [place], [address], [facility] 6 10:19:45 Dermatop hytosis of the perianal area Completed 201312/08/2013 RECORDED 08/18/19 14 8:10AM BY AMARJTI JEAN ON/ADDEN DUM Emigdio Casas PA-C [address], [place], [address], [facility] 6 10:19:45 Vitamin D deficien cy 49213545 Completed 201312/08/2013 RECORDED 08/18/19 14 8:10AM BY AMARJIT JEAN ON/ADDEN DUM Wendy Key MA null, [facility] 8 08:33:24 Adult health examinat ion Completed 201306/04/2016 IMPRESSI ON: PT IS DOING WELL, ACTIVE, EATS WELL; RECORDED 11/13/19 14 9:23AM BY ARACELY Najera MD, [facility] 09:[facility]31 Screenin g for malignan t neoplasm of colon Completed 201312/03/2016 RECORDED 11/13/19 14 1:55PM BY RHIANNON CARDONAIC AL SUMMARY KODY Eugene, [facility] 7 09:33:55 Overweig ht 697134766 Completed 201312/30/2017 RECORDED 11/13/19 14 8:52AM BY RUBEN MORALES MA, OFFICE VISIT KODY Varela, [facility] 8 08:33:12 Degenera tion of interver tebral disc Completed 201312/03/2016 RECORDED 11/13/19 14 8:44AM BY RUBEN MORALES MA, OFFICE VISIT KODY Eugene, [facility] 7 09:34:10 Contact dermatit is 85416925 Completed 201312/03/2016 IMPRESSI ON: ARMS TX BELOW; RECORDED 11/13/19 14 8:44AM BY RUBEN MORALES MA, OFFICE VISIT KODY Eugene, [facility] 7 09:34:01 Essentia l hyperten elsa 65499667 Active 2013 KODY Varela, [facility] 8 08:33:38 Hyperlip idemia 80719407 Completed 201312/11/2018 [facility] 9 10:22:52 Insomnia 048064076 Active 2013 Wendy Key MA null, [facility] 8 08:33:08 Tobacco user 891419195 Completed 201312/08/2015 RECORDED 11/13/19 14 8:56AM BY RUBEN MORALES MA, OFFICE VISIT Ruben jo MA null, [facility] 6 08:54:33 Rhabdomy olysis 957879694 Completed 201312/11/2018 Aracely melendez null, [facility] 9 10:22:46 Vitamin D deficien cy 41557999 Active 2013 Wendy Key MA null, [facility] 8 08:33:24 Ex-smoke r 0028314 Active 2015 Ruben jo MA null, [facility] 6 08:54:38 Hyperten elsa monitori ng status 356378248 Completed 202108/21/2023 disenrol led MIKI DOUGLAS MD [address], [place], [address], [facility] 4 09:09:40 Lumbar radiculo jaja 648599195 Active 2022 MIKI DOUGLAS MD [address], [place], [address], [facility] 3 12:43:19 Heart murmur 77514051 Active 2023 MIKI DOUGLAS MD [address], [place], [address], [facility] 4 14:54:21 Foot-asif p 2463148 Active 2023 MIKI DOUGLAS MD [address], [place], [address], [facility] 4 16:27:46 Compress ion fracture of L2 [id number] 603594 Active 2024 Devon Maldonado MD [address], [place], [address], [facility] 5 17:24:07 Problem Notes None recorded. Procedures Surgical History Date Name Laterality Status Provider Name and Address Organization Details Recorded Time 02/13/20 25 FOBT completed Ruben israel MA [facility] 02/12/2025 16:27:11 12/26/19 25 injection of sacroiliac joint completed Jaky Flores [facility] 12/25/2024 10:43:47 08/25/19 25 Advanced Care Planning completed MIKI DOUGLAS MD [address], [place], [address], [facility] 08/24/2024 09:39:51 08/22/19 24 Advanced Care Planning completed Sun Callejas [facility] 08/23/2023 10:18:50 06/20/19 24 lumbar spinal fusion completed Jaky Flores [facility] 06/20/2023 13:52:48 06/20/19 24 decompression of lumbar spine completed Jaky Flores [facility] 06/20/2023 13:52:57 09/26/19 23 laminectomy completed Jaky Flores [facility] 09/25/2022 12:48:32 06/22/19 21 Six-Item Cognitive Test completed Charo Morgan MA [facility] 06/22/2020 12:56:05 01/08/20 20 injection completed Stephanie Dover [facility] 01/15/2020 15:21:45 06/11/19 20 Mini-Cog Test completed uYki Sanches MA [facility] 06/11/2019 09:03:24 06/09/19 19 Mini-Cog Test completed Yuki Sanches MA [facility] 06/09/2018 10:10:59 06/06/19 18 Fall Risk Assessment completed Yuki Sanches MA [facility] 06/06/2017 08:42:17 06/06/19 18 Mini-Cog Test completed Yuki Sanches MA [facility] 06/06/2017 08:42:47 06/04/19 17 Fall Risk Assessment completed Yuki Sanches MA [facility] 06/04/2016 09:49:43 06/04/19 17 Mini-Cog Test completed Yuki Sanches MA [facility] 06/04/2016 09:49:04 06/04/19 17 Advanced Care Planning completed Aracely lockwood [facility] 06/04/2016 10:21:57 06/03/19 16 Fall Risk Assessment completed Yuki Sanches MA [facility] 06/03/2015 09:06:29 06/03/19 16 Mini-Cog Test completed Yuki Sanches MA [facility] 06/03/2015 09:07:31 07/29/19 14 Colonoscopy completed Lynne Rachel [facility] 01/23/2022 15:48:21 Imaging Results None recorded. Procedure Notes None recorded. Medical Equipment None Reported. Allergies Allergen ID Allergen Name Allergen Category Reaction Reaction Severity Criticality Documentation Date Start Date Code Code System Note Provider Name and Address Organization Details Recorded Time 1213 Product containin g angiotens in-conver ting enzyme inhibitor (product) medicatio n myalgias (muscle pain) Not available Not available 12/08/20132013 15422 009 SNOMED MUSCL ES SPASM S KODY Pleitez [facility] 6 08:53:48 1214 Lipitor medicatio n other Not available Not available 12/08/20132013 05856 5 RxNorm RHABD OMYOL YSIS KODY Pleitez [facility] 6 08:53:53 87452 temazepam medicatio n other Not available Not available 12/08/2015 18599 RxNorm night luis jo MA null, [facility] 6 08:58:04 21300 Sahil mcfarland Not available [facility] 12/07/2024 96432 96 RxNorm Yuki Sanches MA [facility], [facility] 5 09:50:54 Medications Name Sig Start Date Stop Date Status Note LastModified by Organization Details LastModified Time celecoxib 200 mg capsule TAKE 1 CAPSULE BY MOUTH EVERY DAY 02/15 completed Not Available Not Available Not Available cyclobenz aprine 10 mg tablet Take 1 tablet as needed by oral route in the evening. 08/24 completed Not Available Not Available Not Available prednison e 10 mg tablet TAKE 5 TABLET BY MOUTH FOR 2 DAYS 4 TABS FOR 2 DAYS 3 TABS FOR 2 DAYS THEN 2 TABS FOR 2 DAYS 02/10 completed Not Available Not Available Not Available gabapenti n 600 mg tablet TAKE 2 TABLETS BY MOUTH EVERY 12 HOURS 12/07 completed Not Available Not Available Not Available desoximet asone 0.25 % topical cream TWO TIMES DAILY 10/13 completed RECORDED 10/14/19 10 2:27PM BY RUBEN MORALES MA, OFFICE VISIT; Not Available Not Available Not Available trazodone 50 mg tablet Take 1 tablet as needed by oral route at bedtime for 30 days. 06/04 completed Not Available Not Available Not Available aspirin 325 mg tablet Take 1 tablet every day by oral route for 30 days. 2016 active Not Available Not Available Not Avai lable pravastat in 40 mg tablet Q HS 09/29 completed RECORDED 09/30/19 08 3:55PM BY CORDELIA Bryant NP, ANNOTATI ON/GAURAV DUM; Not Available Not Available Not Available sulfameth oxazole 400 mg-trimet hoprim 80 mg tablet TAKE 1 TABLET BY MOUTH TWICE DAILY 02/15 completed Not Available Not Available Not Available senna 8.6 mg tablet TAKE 2 TABLETS BY MOUTH EVERY DAY 12/07 completed Not Available Not Available Not Available prednison e 20 mg tablet Take 2 tablets every day by oral route for 5 days. 06/04 completed Not Available Not Available Not Available niacin ER 500 mg tablet,ex tended release 24 hr TAKE 4 TABLETS BY MOUTH EVERY DAY 02/11 completed Not Available Not Available Not Available amlodipin e 2.5 mg tablet TAKE 1 TABLET BY MOUTH EVERY DAY 03/12 completed Not Available Not Available Not Available amlodipin e 5 mg tablet TAKE 1 TABLET BY MOUTH DAILY 03/09 completed Not Available Not Available Not Available triamcino lone acetonide 0.1 % topical cream APPLY A THIN LAYER TO THE AFFECTED AREA(S) BY TOPICAL ROUTE 2 TIMES PER DAY 06/22 completed Not Available Not Available Not Available lidocaine -prilocai ne 2.5 %-2.5 % topical cream APPLY TOPICALL Y TO THE AFFECTED AREA 1 TIME APPLY ON LEFT LEG 1 HOUR BEFORE PROCEDUR E AND WRAP LEG IN PLASTIC WRAP 11/25 completed Not Available Not Available Not Available Macrobid 100 mg capsule Take 1 capsule twice a day by oral route for 7 days. 03/03 completed Not Available Not Available Not Available hydromorp cristy 2 mg tablet 02/15 completed Not Available Not Available Not Available lorazepam 0.5 mg tablet TAKE 1 TABLET BY MOUTH THE EVENING PRIOR TO PROCEDUR E AND 1 HOUR PRIOR TO PROCEDUR E 02/10 completed Not Available Not Available Not Available desonide 0.05 % topical ointment APPLY SPARINGL Y AND RUB GENTLY INTO THE AFFECTED AREA(S) BY TOPICAL ROUTE 2 TIMES PER DAY 02/11 completed Not Available Not Available Not Available tamsulosi n 0.4 mg capsule TAKE 1 CAPSULE BY MOUTH EVERY DAY active Not Available Not Available No t Available temazepam 30 mg capsule AT BEDTIME NEEDED FOR SLEEP 08/17 completed RECORDED 08/18/19 14 9:06AM BY JADA HATCH, ANNOTATI ON/GAURAV HU; Not Available Not Available Not Available clotrimaz ole-betam ethasone 1 %-0.05 % topical cream BID 10/09 completed RECORDED 10/10/19 12 1:06PM BY YUKI SANCHES, OFFICE VISIT; Not Available Not Available Not Available lisinopri l 10 mg tablet DAILY 03/29 completed RECORDED 03/29/20 09 8:11PM BY CORDELIA Bryant NP, OFFICE VISIT; Not Available Not Available Not Available lidocaine 5 % topical patch APPLY 1 PATCH TOPICALL Y ONCE A DAY. REMOVE AND DISCARD PATCH WITHIN 12 HOURS OR DIRECTED BY DOCTOR 02/11 completed Not Available Not Available Not Available niacin 500 mg tablet TAKE 4 TABLETS ONCE DAILY IN THE EVENING 12/07 completed Not Available Not Available Not Available gabapenti n 300 mg capsule TAKE 1 CAPSULE BY MOUTH EVERY DAY NEEDED 03/09 completed Not Available Not Available Not Available aspirin 81 mg chewable tablet Chew 1 tablet every day by oral route. 12/03 completed Not Available Not Available Not Available hydrochlo rothiazid e 25 mg tablet QD active Not Available Not Available Not Available furosemid e 20 mg tablet TAKE 1 TABLET BY MOUTH EVERY DAY 02/26 completed Not Available Not Available Not Available lorazepam 1 mg tablet QHS PRN INXSOMNI A 07/27 completed RECORDED 07/28/19 14 12:55PM BY JADA HATCH, OFFICE VISIT; Not Available Not Available Not Available polyethyl jac glycol 3350 17 gram/dose oral powder MIX 17G INTO LIQUID AND DRINK EVERY DAY NEEDED FOR CONSTIPA TION active Not Available Not Available No t Available ketoconaz ole 2 % topical cream TWO TIMES DAILY 10/21 completed RECORDED 10/22/19 10 2:34PM BY AMARJIT FRIAS ON/GAURAV HU; Not Available Not Available Not Available mometason e 0.1 % topical cream Apply 1 applicat ion every day by topical route as needed for 14 days. 12/11 completed Not Available Not Available Not Available oxycodone 5 mg tablet TAKE 1 TABLET BY MOUTH EVERY 4 HOURS NEEDED FOR SEVERE PAIN 08/21 completed Not Available Not Available Not Available Vitamin D 50,000 unit capsule ONCE A WEEK 11/16 completed RECORDED 11/17/19 10 4:33PM BY ARACELY Najera MD, REFILL REQUEST; THIS ORDER DISCONTI NUED PER MEDI-SPA N. Not Available Not Available Not Available ezetimibe 10 mg tablet TAKE 1 TABLET BY MOUTH EVERY DAY active Not Available Not Available No t Available cyclobenz aprine 5 mg tablet TAKE 1 TABLET BY MOUTH THREE TIMES DAILY FOR UP TO 10 DAYS NEEDED FOR MUSCLE SPASMS 08/21 completed Not Available Not Available Not Available metoprolo l tartrate 25 mg tablet TAKE 1 TABLET BY MOUTH TWICE DAILY active Not Available Not Available No t Available pregabali n 75 mg capsule TAKE 1 CAPSULE BY MOUTH TWICE DAILY 02/15 completed Not Available Not Available Not Available pregabali n 150 mg capsule TAKE 1 CAPSULE BY MOUTH TWICE DAILY 02/15 completed Not Available Not Available Not Available niacin 500 4 tablets po qd 12/01 completed Not Available Not Available Not Available blood pressure monitor DAILY MONITORI NG OF BP FOR HTN 10/08 completed RECORDED 12/24/19 11 4:00PM BY KODY UP, MEDICATI ON AUTO-DAYNA CTIVATIO N; Not Available Not Available Not Available red yeast rice 600 mg capsule 10/13 completed RECORDED 10/14/19 10 2:27PM BY RUBEN MORALES MA, OFFICE VISIT; Not Available Not Available Not Available cholecalc iferol (vitamin D3) 25 mcg (1,000 unit) tablet Take 1 tablet every day by oral route as directed . active Not Available Not Available No t Available peg 3350-elec trolytes 236 gram-22.7 4 gram-6.74 gram-5.86 gram solution active Not Available Not Available Not Available tadalafil 2.5 mg tablet DAILY 02/16 completed RECORDED 03/24/20 09 10:29AM BY CORDELIA Bryant NP, MEDICATI ON AUTO-DAYNA CTIVATIO N; Not Available Not Available Not Available magnesium 400 mg (as magnesium oxide) capsule Take 1 capsule every day by oral route. 03/26 completed Not Available Not Available Not Available marijuana (cannabis ) oral edible Take by oral route. active Not Available Not Available No t Available Nexletol 180 mg tablet Take by oral route for 90 days. active Not Available Not Available No t Available Vitals None Recorded Social History Question Answer Notes LastModified by Organizat ion Details LastModified Time Tobacco Smoking Status Former Smoker Yuki Sanches MA [facility], [place] [facility] 05/13/2014 08:48:14 Do You Have An Advance Directive? Yes Jing Stephanie Information not available 12/08/2015 Is Blood Transfusion Acceptable In An Emergency? Yes Information not available 12/08/2015 What Is Your Level Of Caffeine Consumption? Moderate 1 Serving Daily Information not available 12/08/2015 How Much Tobacco Do You Chew? None Information not available 12/08/2015 In The 14 Days Before Symptom Onset, Have You Had Close Contact With A Person Who Is Under Investigation For COVID-19 While That Person Was Ill? No Information not available 12/02/2019 Have You Been To An Area Known To Be High Risk For COVID-19? No [email or web address] Information not available 12/02/2019 What Type Of Diet Are You Following? REGULAR [email or web address] Information not available 05/13/2014 Which Illicit Or Recreational Drugs Have You Used? None Information not available 12/08/2015 When Did You Quit Smoking? 16+yearssin isaías lopes [email or web address] Information not available 06/23/2021 Live Alone Or With Others? With Others (Jing) Information not available 12/08/2015 Do You Take Precautions To Prevent Distracted Driving? Yes Information not available 12/08/2015 How Often Do You Need To Have Someone Help You When You Read Instructions, Pamphlets, Or Other Written Material From Your Doctor Or Pharmacy? Never Information not available 12/08/2015 Have You Served In The ? [employer] For 4 Years [employer]ed [employer]bs [email or web address] Information not available 06/04/2016 Have You Or Anyone In Your Household Had Any Of The Following Symptoms In The Last 14 Days: Sore Throat, Cough, Chills, Body Aches For Unknown Reasons, Shortness Of Breath For Unknown Reasons, Loss Of Smell, Loss Of Taste, Fever At Or Greater Than 100 Degrees Fahrenheit? No [email or web address] Information not available 12/02/2019 Are You Or Anyone In Your Household A Health Care Provider Or Emergency Responder? No Information not available 12/02/2019 To The Best Of Your Knowledge Have You Been In Close Proximity To Any Individual Who Tested Positive For COVID-19? No [email or web address] Information not available 12/02/2019 *AWV ONLY* Are You Presently Prescribed Opioid Medication By PCP Or Specialist? If YES -Provider Assess The Benefit For Other, Non-opioid Pain Therapies Instead, Even If The Patient Does Not Have OUD But Is Possibly At Risk. No [email or web address] Information not available 06/23/2021 Have You Recently Traveled To A COVID-19 High Risk Area Or Gathering In The Last 10 Days? No [email or web address] Information not available 06/22/2020 What Was The Date Of Your Most Recent Tobacco Screening? 08/24/2024 [email or web address] Information not available 08/24/2024 How Many Children Do You Have? 2 [email or web address] Information not available 05/13/2014 What Is Your Current Pack Years? 10-19packye ars [email or web address] Information not available 06/23/2021 Do You Use Protection During Sex? No Information not available 12/08/2015 Seat Belts Used Routinely Yes [email or web address] Information not available 05/13/2014 Are You Sexually Active? Yes Information not available 12/08/2015 Smoke Alarm In Home Yes [email or web address] Information not available 05/13/2014 Are You Passively Exposed To Smoke? No Information no t available 12/08/2015 General Stress Level Medium [email or web address] Information not available 08/24/2024 Do You Use Sunscreen Routinely? Yes Information not available 05/13/2014 How Many Years Have You Smoked Tobacco? 25 [email or web address] Information not available 05/13/2014 Sex: Unknown Functional Status Question Answer Note LastModified by Organizat ion Details LastModified Time What is your level of alcohol consumption? Occasional [email or web address] Information not available 05/13/2014 Do you or have you ever used smokeless tobacco? Never used smokeless tobacco [email or web address] Information not available 06/22/2020 Are you currently employed? No retired Information not available 12/08/2015 Are you able to walk independently without assistance or assistive devices? YESWOREST [email or web address] Information not available 06/23/2021 Are you able to care for yourself independently? 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 Never used electronic cigarettes [email or web address] Information not available 06/22/2020 What is your exercise level? Moderate golf 4 x week Information not available 12/08/2015 Mental Status None recorded. Family History Relationship Description Onset Age of this Age Resolved Age Notes LastModified by Organization Details LastModified Time Brother Carcinoma in situ of colon [email or web address] Not available 09:31:12 Notes:No breast cancer Medical History Condition Response Muscle, Joint, or Bone Problems Y Eczema Y High Cholesterol Y Hypertension Y Immunizations Vaccine Type Date Status Note Provider Name and Address Organization Details Recorded Time Tdap 007 completed Not Available [facility] 12/08/2013 13:26:33 pneumococcal polysaccharide PPV23 014 completed Not Available [facility] 12/08/2013 13:26:33 Pneumococcal conjugate PCV 13 015 completed KODY Eugene [facility] 01/08/2022 10:10:56 Td (adult), 2 Lf tetanus toxoid, preservative free, adsorbed 019 completed KODY Eugene [facility] 01/08/2022 10:10:56 zoster recombinant 024 cancelled patient objection MIKI DOUGLAS MD [address], [address], [facility] 08/22/2023 09:36:05 Influenza, high-dose, trivalent, PF 024 cancelled patient objection MIKI DOUGLAS MD [address], [address], [facility] 02/11/2024 11:17:45 Past Encounters Encounter ID Performer Location Encounter Start Date Encounter Closed Date Diagnosis/Indication Diagnosis SNOMED-CT Code Diagnosis ICD10 Code Diagnosis IMO Codes Diagnosis Note [id number] MIKI DOUGLAS MD [address] [id number] 02/11/2025 11:04:48 02/11/2025 12:15:39 Alkaline phosphatase above reference range 065248957 R74.8 489441 - noted to be 122- will check repeat Unintentio nal weight loss [id number] R63.4 411989 - has lost 27lbs since 03/2024- associated with decrease appetite and decreased portions- ordered chest x-ray- ultrasound sound gall-bladd er ordered due to intermitte nt right sided abdominal pain was normal- ordered UA, inflammato ry markers, liver panel and BMP- will check HIV and hepatitis panel- ordered FOBT- ordered for CT abdomen and pelvis Idiopathic hypotension 580537192 I95.0 809206 - BP has been trending down- pt had been experienci ng light-head iness especially when changing positions- BP today is 96/57- stopped amlodipine 5mg QD- c/w metoprolol tartrate 25mg BID Hypercholesterolemia 136 25116 E78.00 59067 - improved- ASCVD score of 29%- lipid panel 11/2024: cholestero l-113, triglyceri de-177, LDL-43, HDL-41- pt was following with cardiology - cannot tolerate statin therapy due to hx of rhabomyoli sis and elevated CK levels- pt was placed on repatha however it caused hives- stopped niacin ER 500mg QID- c/w ezetimibe 10mg QD and- will try nexletol since repeat lipid panel done by cardio showed worsening LDL> please note, I am unsure as to why cardiologi st does not just prescribe medication [id number] Tony Mas MD Main Office [address] [facility] [place], [place] [phone] 02/12/2025 14:54:46 02/12/2025 16:23:25 Health Concerns Section Related Observation LastModified by Organization Detai ls LastModified Time None Recorded Concern Status LastModified by Organization Details LastModified Time None Recorded Payers Encounter Date Sequence Insurance Name Policy Number Policy Patel Covered Member ID Patel Member ID Guarantor Name 02/12/2025 1 [facility] MEDICARE ADVANTAGE PLAN (MEDICARE REPLACEMENT HMO) [id number] Neil Brown [id number] Neil Brown
--- OUTSIDE RECORDS SUMMARY | 2025-04-16 10:18 | XMS_ITS | Clinical Summary ---
Author Organization [address] [facility] Address [address] [place] [address] Phone Care Team Providers Care Historical Guide Name Role Phone Madeleine Jones MD Primary Care Provider Allergies Active Allergy Reactions Criticality Noted Date Comments Amrco A Inhibitors 01/24/2021 Atorvastatin Calcium 01/24/2021 Evolocumab Hives,Rash 11/30/2024 Iqmgkno-Pbr-Rvv Reductase Inhibitors 09/20/2020 Statins [hmg-coa-r Inhibitors] Temazepam 01/24/2021 Medications gabapentin (NEURONTIN) 300 mg capsuleIndicati ons:Chronic bilateral low back pain with bilateral sciatica Take 1 capsule (300 mg total) by mouth 3 (three) times a day. 90 each 2 05/12/2024 Active aspirin 325 mg tablet Take 325 mg by mouth daily. 09/23/2014 Active cholecalciferol (VITAMIN D-3) 25 mcg (1,000 unit) tablet Take 1 tablet (1,000 Units total) by mouth 1 (one) time each day. Active ezetimibe (ZETIA) 10 mg tablet Take 1 Tablet by mouth daily. Active magnesium aspart,citrate, oxide (Triple Magnesium Complex) 400 mg magnesium capsule Take 400 mg by mouth daily. Active multivitamin tablet Take 1 tablet by mouth 1 (one) time each day. Active omega 9-jay-sqa-fish oil (Fish OiL) 1,200 (144-216) mg capsule Take by mouth. Active metoprolol tartrate (LOPRESSOR) 25 mg tablet Take 1 tablet (25 mg total) by mouth 2 (two) times a day. 180 tablet 2 05/25/2024 Active tamsulosin (FLOMAX) 0.4 mg 24 hr capsule Take 1 capsule (0.4 mg total) by mouth 1 (one) time each day. 11/14/2023 Active senna 8.6 mg tablet Take 2 tablets (17.2 mg total) by mouth 1 (one) time each day. 07/20/2024 Active Active Problems Problem Noted Date Diagnosed Date Pure hypercholesterolemia 03/12/2025 Assessment & Plan (03/25/2025 1:52 PM EDT): The patient has a history of hyperlipidemia. He has a history of statin intolerance. He also has a history of carotid artery disease. Therefore, his LDL target is 70 or below. He states that he had a rash with the use of Repatha and therefore the medication was discontinued. The patient does not want to try Praluent. He is currently on Zetia and he was recently started on Nexletol by his PCP. Would recommend a follow-up lipid panel in 6 weeks. Orders: Lipid panel; Future LDL cholesterol, direct; Future VSD (ventricular septal defect) 03/12/2025 Assessment & Plan (03/25/2025 1:52 PM EDT): On his recent echocardiogram, there was evidence of possible perimembranous VSD with sryu-gv-jcawt shunting. We discussed the possibility of further testing with CARLOS or cardiac MRI. After the conversation, we settled on proceeding with a cardiac MRI to evaluate the patient's apparent VSD. Orders: MR Cardiac Morphology and Function wo and w Contrast MR Cardiac Velocity Flow Mapping; Future Acute right-sided low back pain without sciatica 08/04/2024 Assessment & Plan (08/04/2024 10:46 AM EDT): Mr. Gutierres continues to describe right sided flank pain. It mostly bothers him at night when he is trying to sleep. I brought him back in today because recent x- rays show worsening of his L2 compression fracture. He did not have significant pain with palpation or percussion in the midline upper lumbar spine. He pointed to his right posterior flank when describing his pain in that area also was not really tender. He did not have right CVA tenderness. Once again reviewed his CT of the lumbar spine from June 11 and the most recent x-rays from July 21 showing his L5-S1 fusion and the worsening L2 compression fracture. I discussed things with Dr. Ramesh but we really do not have any surgery to offer for him. Think his pain is referable to the L2 compression fracture. He has a prescription for lidocaine patches as well as some Voltaren gel at home. I encouraged him to try the Voltaren gel on his area of discomfort. He asked about getting a second opinion and I told him by all means to do so. He is welcome to follow-up with us on an as-needed basis. Foot drop, left foot 2024 Disorder of vision 07/02/2023 Eczema 07/02/2023 Insomnia 07/02/2023 Left leg swelling 07/02/2023 OA (osteoarthritis) 07/02/2023 Varicose veins of left lower extremity with pain 07/02/2023 Vitamin D deficiency 07/02/2023 Chronic bilateral low back pain with bilateral s ciatica 12/22/2022 Overview (05/15/2024): Last Assessment & Plan: Mr. Gutierres is here for second postop visit since an L4-5 decompression with resection of Schaffer fragment and PLIF on 06/20/2023. He is very pleased with the results of the surgery and grateful for how well he feels now. He is sleeping better, has no back pain and no leg pain. There is still mild tingling in his toes and edema in the left calf for which she has an upcoming study. He was somewhat limited with his walking with occasional tripping of the left foot but he has started seeing a new physical therapist who is focusing on his legs and not his back and this has also helped him. On exam, seated SLR is negative, strength is 5/5 including resistance testing of left dorsiflexion though there is decreased range compared to the right side. There is 1+ edema up to two thirds of the left calf more prominent posteriorly. He walks with a cane for safety if he trips but he does not depend on it. Review of the AP/lateral and flexion/extension x-rays from today show the interbody graft screws and rods to be in good position with a stable anterolisthesis. Mr. Gutierres is doing very well recovering from surgery. He is scheduled to have a lower extremity ultrasound on 08/28/2023 where this is expected to show a problem with venous return. We will plan on seeing him back at 1 year from surgery with a CT scan to assess the fusion. Assessment & Plan (07/17/2024 12:04 PM EST): Mr. Gutierres scribes low back pain without significant radiation down the legs. He went to physical therapy but did not feel like it was helping. He has been wearing his left sided AFO with good effect. He is neurologically intact other than a left foot drop. I once again reviewed his CAT scan of the lumbar spine from [place] dated anywhere 2024. This does show widening of the facets at the level above his fusion variably called L3-4 or L4-5. Order x-rays with flexion and extension views to evaluate for any instability at that level. I am also going to give him a prescription for lidocaine patches. I told him we would talk after I had reviewed his x-rays. Assessment & Plan (06/12/2024 2:26 PM EST): Mr. Gutierres has had improvement in his original back and at least proximal leg pain since the surgery. Unfortunately, he feels that the left foot drop has gotten a little worse and he has had trouble with AFOs. Has had multiple falls and does not feels confident walking with a cane. His CAT scan looks fine, I am not concerned that there is new left sided nerve root compression. He was given an order for new left AFO and a new referral to PT as it [facility] not [facility]. In terms of the spasming in his legs at night after using his foot exercise, I would like to try a simple muscle relaxer first as neither of us are convinced that this is restless leg syndrome. I think he needs more overall activity as he is so deconditioned. A prescription for Flexeril was initiated. He should follow-up with us in 3 months to reassess how things are going. Chronic left-sided lumbar radiculopathy 10/06/19 23 Overview (05/15/2024): Last Assessment & Plan: Mr. Gutierres describes chronic intermittent left lower extremity pain. He has had relief in the past with physical therapy. We will send him for physical therapy again and he will follow-up with us if the pain persists. We talked about appropriate doses of nonsteroidal anti-inflammatory medications and he will take them. Assessment & Plan (06/12/2024 2:28 PM EST): I am referring Mr. Gutierres back to physical therapy as he is having more trouble walking with the left foot drop though the strength to confrontation has not changed. Will also have him fitted with an AFO. Cervical spondylitic cord compression 09/17/2022 Overview (05/15/2024): Last Assessment & Plan: Mr. Martha Tracy is approximately 2 weeks status post C3-4 posterior cervical decompression. He is pleased with his early postoperative results and I would agree with him. We talked about slowly increasing his activity and avoiding submerging the incision underwater for the next couple of weeks. He will follow-up with us on an as-needed basis. Carotid artery disease ([facility] V24) 09/20/2020 Overview (05/15/2024): Last Assessment & Plan: Patient has history of carotid artery stenosis status post right carotid endarterectomy in 2014. He now presents for preoperative risk assessment prior to undergoing left carotid endarterectomy. He follows with [facility] vascular services. He continues on aspirin and statin. Assessment & Plan (08/27/2024 10:10 AM EDT): Patient has history of bilateral carotid stenosis. He continues to follow with [facility] vascular. He has undergone bilateral endarterectomies. Hyperlipidemia 09/20/2020 Overview (05/15/2024): Last Assessment & Plan: Patient's last LDL cholesterol was 129. This is close to goal. He continues on niacin 1000 mg daily and Zetia 10 mg daily. He has significant statin intolerance. Insert heart healthy lifestyle education I have reviewed with the patient the importance of a heart healthy lifestyle which includes eating a low-fat low-salt diet, getting regular exercise, maintaining a healthy weight, not smoking, and following up with routine medical care. Assessment & Plan (08/27/2024 10:10 AM EDT): Patient has history of hyperlipidemia and carotid artery disease. He has significant history of myalgias and elevations in his enzymes resulting in the inability to continue with statins in the past. He has been on niacin and Zetia for quite some time. He has been tolerating these medical therapies however given his history of carotid artery disease he was advised by his primary care provider to discuss alternative options for the management of his hyperlipidemia. He would be reasonable to consider PSK 9 inhibitor given his history of carotid artery disease status post bilateral endarterectomies and LDL cholesterol of 129 on his present medical therapies. I do believe that a PSK 9 inhibitor would substantially decrease his cardiovascular risk. Patient is agreeable to start this. We certainly can cut back on his niacin and possibly discontinue it since it does not seem to be maintaining good lipid management. Today I will order Repatha 140mg every 2 weeks. He will then repeat labs 12 weeks later. Hypertension 09/20/2020 Overview (05/15/2024): Last Assessment & Plan: Patient's blood pressure was initially elevated with a reading of 142/78. Upon recheck it was a little bit better at 138/72. He will continue on his present medical therapies which includes amlodipine and metoprolol as prescribed. Assessment & Plan (03/25/2025 1:52 PM EDT): The patient has a history of arterial hypertension. The patient's blood pressure today was noted to be well controlled. We'll continue the current antihypertensive medication regimen. Assessment & Plan (08/27/2024 10:10 AM EDT): Blood pressure appears to be adequately controlled with a reading today of 120/68. He continues on amlodipine and metoprolol. Degeneration of lumbar intervertebral disc 11/12 Overview (05/15/2024): RECORDED 11/12/2013 8:44AM BY RUBEN HARTMAN MA, OFFICE VISIT Overweight 11/12/2013 Overview (05/15/2024): RECORDED 11/12/2013 8:52AM BY RUBEN HARTMAN MA, OFFICE VISIT Disorder of skin or subcutaneous tissue 08/18/19 14 Overview (05/15/2024): IMPRESSION: RIGHT LATERAL THIGH REFER TO DERM FOR EVAL, HE WILL SET UP; RECORDED 08/17/2013 8:10AM BY NATALIE ALVARADO, ONEL/ADDENDUM Dizziness and giddiness 08/17/2013 Overview (05/15/2024): IMPRESSION: LIKELY FROM INCREASED LORAZEPAM DOSE. WILL TRY TO CHANGE TO TEMAZAPAM. 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 Overview (05/15/2024): RECORDED 08/17/2013 8:10AM BY ONEL STEARNS/ADDENDUM Intervertebral disc disorder of cervical region with myelopathy 08/17/2013 Overview (05/15/2024): IMPRESSION: I REVIEWED HX, MRI REPORT AND EMG FINDINGS WITH PT, HE IS FINE, NO WWEAKNESS, NO FASICULATIONS OR NECK PAIN, MOST LIKELY CERVICAL CORD DCOMPRESSION WAS THE CASUE OF HIS SYMPTOMS IN THE PAST WITH MUSCLE WEAKNESS AND FASICUALTIONS, PT TO RETURN IF ANY RETURN OF SYMPTOMS, AVOID NECK TRAUMA, NO FURTHER WORKUP; RECORDED 08/17/2013 8:10AM BY ONEL STEARNS/ADDENDUM Malaise and fatigue 08/17/2013 Overview (05/15/2024): RESOLVED DATE: 08/17/2013; RECORDED 08/17/2013 8:10AM BY NATALIE ALVARADO, ONEL/ADDENDUM 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 06/29/2013 Overview (05/15/2024): Psychosexual dysfunction associated with inhibited libido RECORDED 06/29/2013 8:37AM BY DALLAS SANCHES, ANNOTATION/ADDENDUM Contact dermatitis 08/21/2012 Overview (05/15/2024): RECORDED 08/21/2012 10:55AM BY DALLAS SANCHES, ANNOTATION/ADDENDUM IMPRESSION: ARMS TX BELOW; RECORDED 11/12/2013 8:44AM BY RUBEN MORALES MA, OFFICE VISIT Skin eruption 08/21/2012 Overview (05/15/2024): RECORDED 08/21/2012 10:53AM BY DALLAS SANCHES, ANNOTATION/ADDENDUM Resolved Problems Problem Noted Date Diagnosed Date Resolved Date Murmur, cardiac 03/01/2023 03/12/2025 Overview (05/15/2024): Last Assessment & Plan: On physical examination a systolic murmur is appreciated on auscultation. We will update an echocardiogram prior to surgery. Assessment & Plan (08/27/2024 10:10 AM EDT): Patient has a systolic heart murmur on exam. We will update an echocardiogram. He denies any clinical symptoms of heart failure and appears euvolemic on physical examination. Encounters Date Type Department Care Team Description 03/25/2025 Telephone [facility] Cardiology [facility] [address] [place] [address] Wayne Bowen MD 03/19/2025 Telephone [facility] [address] [place] [address] Wayne Bowen MD 03/12/2025 11:20 AM EDT Office Visit [facility] Cardiology [facility] [address] [place] [address] Wayne Bowen MD Carotid artery disease, unspecified laterality, unspecified type (CMS/[facility] V24) (Primary Dx); Primary hypertension; Pure hypercholesterolemi a; VSD (ventricular septal defect); Murmur, cardiac 03/12/2025 Telephone Gastroenterology - [address] [place] [address] Gregorio Conti MD 02/22/2025 11:00 AM EDT Ancillary Procedure [facility] [address] [place] [address] Murmur, cardiac from Last 3 Months Immunizations Immunization Administration Dates Next Due Pneumococcal conjugate 13 va lent (Prevnar 13, PCV13) 2mo and older 02/03/2015 Pneumococcal polysaccharide 23 valent (Pneumovax 23) 2yo and older 06/29/2013 Td Tetanus diptheria (Tdvax) 7yo and older 06/09 Tdap Tetanus diptheria acell ular pertussis (Boostrix; Adacel) 7yo and older 06/09/2018,03/20/2007 Surgical History Surgery Date Site/Laterality Comments CAROTID ENDARTERECTOMY 2015 Right PROCEDURE: HISTORICAL CAROTID ENDART TONSILLECTOMY PROCEDURE: HISTORICAL TONSILLECTOMY; COMMENT: x2 CAROTID ENDARTERECTOMY 04/2023 Left PROCEDURE: HISTORICAL CAROTID ENDART BACK SURGERY 06/20/2023 PROCEDURE: HISTORICAL BACK SURGERY; COMMENT: L4-5 resection of schaffer fragment post fusion/fixation Medical History Medical History Date Comments Hyperlipidemia DX:Hyperlipidemi a Essential hypertension DX:Essent ial hypertension Family History Medical History Relation Name Comments Colon cancer Brother Relation Name Status Comments Brother Social History Tobacco Use Types Packs/Day Years Used Date Smoking Tobacco: Former Smokeless Tobacco: Former Tobacco Cessation:Counseling Given: Not Answered Alcohol Use Standard Drinks/Week Comments Yes 0 (1 standard drink = 0.6 oz pur e alcohol) 4 beers per wk Sex and Gender Information Value Date Recorded Sex Assigned at Male 03/31/2025 3:57 PM EST Legal Sex Male 1:45 AM EST Gender Identity Not on file Sexual Orientation Not on file Obstetrics History Last Filed Vital Signs Vital Sign Reading Time Taken Comments Blood Pressure 110/60 03/12/2025 10:45 AM EDT Pulse 63 03/12/2025 10:45 AM EDT Temperature - - Respiratory Rate - - Oxygen Saturation 99% 03/12/2025 10:45 AM EDT Inhaled Oxygen Concentration - - Weight 84.8 kg (187 lb) 03/12/2025 10:45 AM EDT Height 175.3 cm (5' 9 ) 03/12/2025 10:45 AM EDT Body Mass Index 27.62 03/12/2025 10:45 AM EDT Plan of Treatment Upcoming Encounters Date Type Department Care Team (Late st Contact Info) Description 05/03/2025 11:15 AM EST Appointment [facility] CT Scan [address] [place] [phone] 10/01/2025 2:20 PM EDT Consult Gastroenterology - [address] [facility] [address] [facility] [address] [place] [phone] Amina Lima, ANABELLA [address] [facility] [address] [place] [address] Health Maintenance Due Date Last Done Comments Zoster Vaccines (1 of 2) 1997 Falls Risk Assessment 04/29/2022 Hepatitis C Screening 04/29/2022 Medicare Annual Wellness Visit 04/29/2022 Social Influencers of Health Screening 04/29/2022 RSV Immunization Adult Patients (1 - 1-dose 75+ series) 2022 Depression Screening 05/27/2024 COVID-19 Vaccine ( - 2024-2 6 season) 2025 Influenza Vaccine (#1) 2025 Hypertension/CHF/CAD Annual BMP Blood Test 04/05/2026 04/05/2025 DTaP,Tdap,and Td Vaccines (4 - Td or Tdap) 06/09/2028 06/09/2018, 06/09/2018, 03/20/2007 Cholesterol Screening (Lipid Panel) 04/05/2030 04/05/2025, 04/05/2025, 12/07/2024 Pneumococcal Vaccine: 50+ Years Completed 02/03/2015, 06/29/2013 HIB Vaccines Aged Out No longer eligi ble based on patient's age to complete this topic HPV Vaccines Aged Out No longer eligi ble based on patient's age to complete this topic Hepatitis A Vaccines Aged Out No long er eligible based on patient's age to complete this topic Hepatitis B Vaccines Aged Out No long er eligible based on patient's age to complete this topic IPV Vaccines Aged Out No longer eligi ble based on patient's age to complete this topic MMR Vaccines Aged Out No longer eligi ble based on patient's age to complete this topic Meningococcal ACWY Vaccine Aged Out N o longer eligible based on patient's age to complete this topic Meningococcal B Vaccine Aged Out No l onger eligible based on patient's age to complete this topic RSV Immunization Patients Under 20 months Aged Out No longer eligible b ased on patient's age to complete this topic Varicella Vaccines Aged Out No longer eligible based on patient's age to complete this topic Procedures Procedure Name Priority Date/Time Associated Diagnosis Comments BASIC METABOLIC PANEL Routine 04/05/2025 10:46 AM EST LDL CHOLESTEROL, DIRECT Routine 04/05/2025 10:46 AM EST Pure hypercholesterolemia LIPID PANEL Routine 04/05/2025 10:46 AM EST Pure hypercholesterolemia ECG 12-LEAD Routine 03/12/2025 10:44 AM EDT Carotid artery disease, unspecified laterality, unspecified type (CMS/HCC V24) Murmur, cardiac TRANSTHORACIC ECHOCARDIOGRAM (TTE) COMPLETE Routine 02/22/2025 11:34 AM EDT Murmur, cardiac from Last 3 Months Results * (ABNORMAL) LDL cholesterol, direct (04/05/2025 10:46 AM EST) LDL Chol. (Direct) 101(H) 0 - 99 mg/dL [facility] 1 Blood Venous blood specimen / Unknown 04/05/2025 10:46 AM EST 04/05/2025 Narrative [facility] 1 - 04/06/2025 1:06 AM EST Performed at: 01 - [facility] [address], [place], [place] [id number] Aircraft Inspector: Vel Mott MD, Phone: [phone] Wayne Bowen MD LAB BLOOD ORDERABLES F inal Result [facility] 1 * (ABNORMAL) Lipid panel (04/05/2025 10:46 AM EST) Cholesterol Total 174 100 - 199 mg/dL [facility] 1 Triglycerides 241(H) 0 - 149 mg/dL [facility] HDL Cholesterol 33(L) >39 mg/dL [facility] VLDL Cholesterol Calculated 41(H) 5 - 40 mg/dL [facility] 1 LDL Chol Calc (NIH) 100(H) 0 - 99 mg/dL [facility] 1 LDL Calc Comment Comment [facility] 1 Comment:See LDL Comment if r eported. Blood Venous blood specimen / Unknown 04/05/2025 10:46 AM EST 04/05/2025 Narrative [facility] 1 - 04/05/2025 9:06 PM EST Performed at: - [address], [address], [place], [place] [id number] Aircraft Inspector: Vel Mott MD, Phone: [phone] Wayne Bowen MD LAB BLOOD ORDERABLES F inal Result [facility] 1 * (ABNORMAL) Basic metabolic panel (04/05/2025 10:46 AM EST) Glucose 103(H) 70 - 99 mg/dL [facility] 1 Blood Urea Nitrogen (BUN) 17 8 - 27 mg/dL [facility] 1 Creatinine 0.91 0.76 - 1.27 mg/dL [facility] 1 eGFR 87 >59 mL/min/1.7 3 [facility] 1 BUN/Creatinine Ratio 19 10 - 24 [facility] 1 Sodium 136 134 - 144 mmol/L [facility] 1 Potassium 4.3 3.5 - 5.2 mmol/L [facility] 1 Chloride 98 96 - 106 mmol/L [facility] 1 Carbon Dioxide 29 20 - 29 mmol/L [facility] 1 Calcium 9.6 8.6 - 10.2 mg/dL [facility] 1 04/05/2025 10:4 6 AM EST 04/05/2025 Narrative [facility] 1 - 04/05/2025 8:07 PM EST Performed at: 01 - [facility] [address], [place], [place] [id number] Aircraft Inspector: Vel Mott MD, Phone: [phone] us Wayne Bowen MD LAB BLOOD ORDERABLES F inal Result [facility] 1 * ECG 12 lead (03/12/2025 10:44 AM EDT) Ventricular Rate ECG 63 BPM GEMUSE Atrial Rate 63 BPM GEMUSE P-R Interval 234 ms GEMUSE QRS Duration 96 ms GEMUSE Q-T Interval 378 ms GEMUSE QTc 386 ms GEMUSE P Wave Bayside 41 degrees GEMUSE R Bayside 57 degrees GEMUSE T Bayside 58 degrees GEMUSE ECG Interpretation Sinus rhythm with 1st degree A-V block Otherwise normal ECG When compared with ECG of 12-JUN-2023 13:10, No significant change was found Confirmed by WAYNE BOWEN ([id number]) on 03/25/2025 1:50:38 PM GEMUSE 03/12/2025 10:4 4 AM EDT 03/25/2025 1:50 PM EDT us Wayne Bowen MD ECG ORDERABLES Final Result GEMUSE * (ABNORMAL) TRANSTHORACIC ECHOCARDIOGRAM (TTE) COMPLETE (02/22/2025 11:34 AM EDT) Left Atrium Minor Bayside 5.7 cm CV PACS Left Atrium Major Bayside 4.9 cm CV PACS LA Area Sys (A2C) 21 cm2 CV PACS LA Area Sys (A4C) 14 cm2 CV PACS LA Volume (BP) 45 mL CV PACS RA Area 12.0 cm2 CV PACS RA 2D Volume 27 mL CV PACS Aortic Sinus Valsalva 3.5 cm CV PACS Ascending Aorta 3.3 cm CV PACS IVC Proximal 1.5 cm CV PACS IVC Proximal 0.7 cm CV PACS IVSD 0.9 0.6 - 1.0 cm CV PACS LVIDD 3.4(A) 4.2 - 5.8 cm CV PACS LVIDS 2.2(A) 2.5 - 4.0 cm CV PACS LVOT Diameter 2.5 cm CV PACS LVOT Mean Ovidio 0.4 m/s CV PACS LVOT Mean Grad 1 mmHg CV PACS LVOT Peak VTI 15.6 cm CV PACS LVOT Peak Ovidio 0.7 m/s CV PACS LVOT Peak Gradient 2 mmHg CV PACS LVPWD 0.9 0.6 - 1.0 cm CV PACS MV E' Tissue Velocity Lateral 5 cm/s CV PACS MV E' Tissue Velocity Septal 4 cm/s CV PACS LVOT Area 4.9 cm2 CV PACS LVOT Stroke Volume 77 mL CV PACS E Wave Deceleration Time 229 119 - 242 ms CV PACS MV Peak A Ovidio 0.80 m/s CV PACS MV Peak E Ovidio 0.60 m/s CV PACS KY End Max Velocity 0.9 m/s CV PACS PA End Diastolic Pressure 4 mmHg CV PACS PV Acceleration Time 99 ms CV PACS PV Acceleration Time 56 ms CV PACS PV Acceleration Time 78 ms CV PACS RV Diastolic Basal Dimension 3.3 2.5 - 4.1 cm CV PACS RV S' 10 cm/s CV PACS TAPSE 22 mm CV PACS E/E' Ratio Septal 15 CV PACS E/E' Ratio Averaged 14 CV PACS Relative Wall Thickness ratio 0.51(A) 0.24 - 0.42 CV PACS FS 35 % CV PACS LV Mass 2D 87(A) 96 - 200 g CV PACS LVOT flow 196 mL/s CV PACS E/A Ratio 0.8 0.8 - 2.0 CV PACS E/E' Ratio Lateral 12 CV PACS BSA 2.01 m2 CV PACS LA Volume Index (BP) 22 mL/m2 CV PACS LVIDD Index 1.70 cm/m2 CV PACS LVIDS Index 1.10 cm/m2 CV PACS LV Mass Index 2D 42(A) 50 - 102 g/m2 CV PACS LVOT Stroke Index 0 mL/m2 CV PACS RA 2D Volume Index 14(A) 18 - 32 mL/m2 CV PACS Ascending Aorta Index 1.65 cm/m2 CV PACS AV Peak Ovidio 1.6 m/s CV PACS AV Velocity Ratio 0.44 CV PACS Ao VTI 37.5 cm CV PACS AV Mean Gradient 6 mmHg CV PACS AV Peak Gradient 11 mmHg CV PACS LVOT:AV VTI Index 0.42 CV PACS AV Area Continuity Equation 2.0 cm2 CV PACS DICK Index (VTI) 1.02 cm2/m2 CV PACS RV Free Wall Peak S' 10 cm/s CV PACS RA Major Bayside 4.0 cm CV PACS RA Major Bayside Index 2.0(A) 2.1 - 2.7 cm/m2 CV PACS MV PHT 66 ms CV PACS Inferior Vena Cava Diameter At Inspiration 0.7 cm CV PACS IVC Inspiration Index 0.35 cm/m2 CV PACS Inferior Vena Cava Diameter At Expiration 1.5 cm CV PACS IVC Expiration Index 0.75 cm/m2 CV PACS Pulmonic Insufficiency End diastolic Peak Flow Velocity 93.7 m/s CV PACS Anatomical Region Laterality Modality Ultrasound Narrative 03/10/2025 10:03 AM EDT Left ventricle cavity is small. Left ventricular systolic function is in the normal range with an ejection fraction of 55-60%. No regional LV wall motion abnormalities noted. Left ventricle wall thickness is normal. Left Ventricle: In some views, there appears to be evidence of a possible perimembranous VSD with xjtz-wt-wdhpr shunting. Consider further evaluation with a CARLOS if clinically indicated. Right Ventricle: Right ventricle cavity appears normal. Systolic function is normal. RV S' 10 cm/sec. Normal TAPSE (> 17 mm), measuring 22 mm. Normal systolic excursion velocity by TDI (>9.5 cm/s). Aortic Valve: Aortic valve sclerosis without stenosis. Pulmonic Valve: There is mild pulmonic valve regurgitation. Left Ventricle Left ventricle cavity is small. Wall thickness is normal. Systolic function is normal with an ejection fraction of 55-60%. There are no regional LV wall motion abnormalities. There is age appropriate left ventricular diastolic function. In some views, there appears to be evidence of a possible perimembranous VSD with dclh-rx-vrirc shunting. Consider further evaluation with a CARLOS if clinically indicated. Right Ventricle Right ventricle cavity appears normal. Systolic function is normal. RV S' 10 cm/sec. Normal TAPSE (> 17 mm), measuring 22 mm. Normal systolic excursion velocity by TDI (>9.5 cm/s). Left Atrium Left atrium cavity size is normal. Right Atrium Right atrium cavity is normal. IVC/SVC Inferior vena cava structure is normal. RA pressures is estimated to be 3 mmHg (IVC diameter <21 mm and decreases >50% during inspiration). Mitral Valve The leaflets are mildly thickened. There is mild annular calcification. There is trace regurgitation. There is no significant stenosis noted. Tricuspid Valve Tricuspid valve structure is normal. Tricuspid regurgitation is inadequate for estimation of right ventricular systolic pressure. There is no significant tricuspid valve stenosis. Aortic Valve Number of aortic valve cusps cannot be determined. The leaflets are moderately calcified. Aortic annular calcification. Aortic valve sclerosis without stenosis. There is no regurgitation or stenosis. Pulmonic Valve The pulmonic valve was not well visualized. There is mild pulmonic valve regurgitation. There is no evidence of pulmonic valve stenosis. Ascending Aorta The aorta appears normal in size. Pericardium There is an fat pad. There is no pericardial effusion. Study Details Overall the study quality was technically difficult. us Kathryn Ling NP CV ECHO PROCEDURES Final Res ult from Last 3 Months Insurance [employer] [address] [place] [address] Care Teams Historical Guide Relationship Specialty Start Date End Date Madeleine Jones MD [address] [facility] [address] [place] [address] PCP - General 03/01/23
--- OUTSIDE RECORDS SUMMARY | 2025-04-16 10:18 | XMS_ITS | Data Portability ---
Author Organization [facility] Aman Kumari [facility], [facility] Address [address] [place] [address] Assessment No assessment recorded. Plan of Treatment Reminders Order Date Submit Date Provider Last Modified By Organization Details Last Modified Time Details Appointments None recorded. Lab None recorded. Referral physical therapist referral - dx trochanteri c bursitis pelvic stability 2023 024 [email or web address] Not available 10:53:49 Procedures None recorded. Surgeries None recorded. Imaging XR, hip + pelvis, bilateral, 2 view - new patient . room 107. bilat hip views 2023 024 [facility], [address], [place], [address], 4 10:53:49 XR, lumbar spine, 2 view - lateral lumbar 2023 024 [email or web address] [facility], [address], [address], [place], [address], 4 10:53:49 Medication Orders None recorded. Patient TargetsNo targets recorded. Patient InstructionsNo instructions recorded. Reason for Referral Physical Therapist Referral for Pain of hip region dx trochanteric bursitis pelvic stability Referring Physician: Elana Mayes, Orthopedic Surgery, Encounter Date: 12/27/2023 Results Created Date Observation Date Name Description Value Unit Range Abnormal Flag Note LastModifiedBy Organization Detail LastModifiedTime 12/27/19 24 12/27/2023 XR, hip + pelvi s, bilat eral, 2 view http:/ [email or web address] ?Encry pted=s hAaTro YD8dLq bEUv6g %2BXZw aYqtaq 0bqfl% 2Fg9IQ a4ajBk vP9nXo QUaueC m3YtLR FvZlgJ JJ8mAn HZtai3 0e9546 AC0Kob n6FUKD eUC8mr 84%3D INTERFACE [facility] [address], [place], [address], 12/27/2023 08:31:48 12/27/19 24 12/27/2023 XR, hip + pelvi s, bilat eral, 2 view http:/ [email or web address] ?Encry pted=s hAaTro YD8dLq bEUv6g %2BXZw aYqtaq 0bqfl% 2Fg9IQ a4ajBk vP9nXo QUaueC m3YtLR FvZlgJ JJ8mAn HZtai3 9j9832 AC0Kob n6FUKD eUC8mr 84%3D INTERFACE [facility] [address], [place], [address], 12/27/2023 08:31:50 12/27/19 24 12/27/2023 XR, lumba r spine , 2 view [email or web address]:/ [email or web address] ?Encry pted=s hAaTro YD8dLq bEUv6g %2BXZw aYqtaq 0bqfl% 2Fg9IQ a4ajBk vP9nXo QUaueC m3YtLR FvZlgJ JJ8mAn HZtai3 1e0191 AC0Kob n6FVav eUC8mr 84%3D INTERFACE [facility] [address], [place], [address], 12/27/2023 08:34:15 12/27/19 24 12/27/2023 XR, lumba r spine , 2 view http:/ [email or web address] ?Encry pted=s hAaTro YD8dLq bEUv6g %2BXZw aYqtaq 0bqfl% 2Fg9IQ a4ajBk vP9nXo QUaueC m3YtLR FvZlgJ JJ8mAn HZtai3 4g8346 AC0Kob n6FVav eUC8mr 84%3D INTERFACE [facility] [address], [place], [address], 12/27/2023 08:34:17 Result Notes Documentation Provider Name and Address Organization Details Recorded Time Xr, Hip + Pelvis, Bilateral, 2 View : [email or web address]? Encrypted=ocYvJufSS0cBfcA Uv6g%8HYYmaXhmyi7gmfm%2Fg 3BTx3pmLstR8qFkDXeanSk7Sk ONPnHwhIYW2pPpNVnms83s673 3QP6Hfla7ZWVUjRV8dy36%3D Not Available [facility] 12/27/2023 08:3 1:49 Xr, Hip + Pelvis, Bilateral, 2 View : [email or web address]? Encrypted=tmCuMkoUR2zSeaE Uv6g%4EUCtpFjysy1xfbs%2Fg 4FAx3tmEoyO1kIzRRgaeQi8Ky OGMrHbxAGO9uFzFRfos06s745 3FL9Rvwv4ZHMYySJ8uv92%3D Not Available [facility] 12/27/2023 08:3 1:51 Xr, Lumbar Spine, 2 View : [email or web address]? Encrypted=foIlYcbNV3yVvuD Uv6g%6IHIwwYguxa7optm%2Fg 1OSg1mmEebC4eYbBFtsgOi6Je HTByHfxQAC3bFpPGvme31j246 8VL0Sjgd8VKwjxTQ6xy72%3D Not Available [facility] 12/27/2023 08:3 4:15 Xr, Lumbar Spine, 2 View : [email or web address] Encrypted=nfLeEjjXP3jIdsF Uv6g%4XMDogQkwxp3nyyw%2Fg 8WGi9daEoqW0nRlYSxtbNu0Yp CPVxZwjAKV6zYbMJwix73l662 5UC2Myjn5NRdpcSF9pu53%3D Not Available [facility] 12/27/2023 08:3 4:17 Procedures Surgical History Date Name Laterality Status Provider Name and Address Organization Details Recorded Time 02/07/2024 JZHip Inj completed ELANA MAYES PA-C [address], [place], [address], [facility] 02/10/2024 07:55:39 12/27/2023 JZHip Inj completed ELANA MAYES PA-C [address], [place], [address], [facility] 12/27/2023 09:24:43 Imaging Results None recorded. Procedure Notes None recorded. Medical Equipment None Reported. Allergies Allergen ID Allergen Name Allergen Category Reaction Reaction Severity Criticality Documentation Date Start Date Code Code System Note Provider Name and Address Organization Details Recorded Time 63180 Product containin g 3-hydroxy -3-methyl glutaryl- coenzyme A reductase inhibitor (product) medicatio n Not available Not available Not available 07/29/20232019 64444 009 SNOMED Aller gyNam e: 'Stat ins'; Not Available [facility] 4 14:23:14 Medications Name Sig Start Date Stop Date Status Note LastModified by Organization Details LastModified Time prednisone 10 mg tablet TAKE 5 TABLET BY MOUTH FOR 2 DAYS 4 TABS FOR 2 DAYS 3 TABS FOR 2 DAYS THEN 2 TABS FOR 2 DAYS active Not Available Not Available No t Available amlodipine 5 mg tablet TAKE 1 TABLET BY MOUTH DAILY active Not Available Not Available No t Available lidocaine-colten locaine 2.5 %-2.5 % topical cream APPLY TOPICALLY TO THE AFFECTED AREA 1 TIME APPLY ON LEFT LEG 1 HOUR BEFORE PROCEDURE AND WRAP LEG IN PLASTIC WRAP active Not Available Not Available No t Available lorazepam 0.5 mg tablet TAKE 1 TABLET BY MOUTH THE EVENING PRIOR TO PROCEDURE AND 1 HOUR PRIOR TO PROCEDURE active Not Available Not Available No t Available tamsulosin 0.4 mg capsule TAKE 1 CAPSULE BY MOUTH DAILY active Not Available Not Available No t Available niacin 500 mg tablet TAKE 4 TABLETS BY MOUTH DAILY WITH BREAKFAST active Not Available Not Available No t Available gabapentin 300 mg capsule TAKE 1 CAPSULE BY MOUTH THREE TIMES DAILY active Not Available Not Available No t Available oxycodone 5 mg tablet TAKE 1 TABLET BY MOUTH EVERY 4 HOURS NEEDED FOR SEVERE PAIN active Not Available Not Available No t Available ezetimibe 10 mg tablet TAKE 1 TABLET BY MOUTH EVERY DAY active Not Available Not Available No t Available cyclobenzapri ne 5 mg tablet TAKE 1 TABLET BY MOUTH THREE TIMES DAILY FOR UP TO 10 DAYS NEEDED FOR MUSCLE SPASMS active Not Available Not Available No t Available metoprolol tartrate 25 mg tablet TAKE 1 TABLET BY MOUTH TWICE DAILY active Not Available Not Available No t Available Vitals Date Recorded Body height Body mass index (BMI) Body weight Provider Name and Address Organization Details Last Updated DateTime 12/27/2023 177.8 cm 29.7 kg/m2 57755.62 g Susie Verde [facility] 12/27/2023 08:23:25 Date Recorded Body height Body mass index (BMI) Body weight Provider Name and Address Organization Details Last Updated DateTime 02/07/2024 177.8 cm 29.7 kg/m2 83547.62 g ANIYAH BETANCOURT [facility] 02/07/2024 15:35:49 Social History None recorded. Functional Status None recorded. Mental Status None recorded. Family History Nothing Reported. Medical History No medical history recorded. Past Encounters Encounter ID Performer Location Encounter Start Date Encounter Closed Date Diagnosis/Indication Diagnosis SNOMED-CT Code Diagnosis ICD10 Code Diagnosis IMO Codes Diagnosis Note [id number] ELANA MAYES PA-C [facility] [address] [place] [address] 12/27/2023 08:06:57 01/20/2024 10:53:48 Pain of hip region 46113794 M25.559 Bilateral trochanteric bursitis 9899534540 7134509 M70.61 M70.62 History of lumbar fusion 8216941482 9106 Z98.1 [id number] ELANA MAYES PA-C [place] [address] [place] [address] 02/07/2024 15:16:11 03/02/2024 10:51:04 Bilateral trochanteric bursitis [id number] 1661207 M70.61 M70.62 Health Concerns Section Related Observation LastModified by Organization Coyleslye ls LastModified Time None Recorded Concern Status LastModified by Organization Details LastModified Time None Recorded Advance Directives Directive None Recorded Payers Insurance Date Sequence Insurance Name Policy Number Policy Patel Covered Member ID Patel Member ID Guarantor Name 09/09/2024 1 [employer]AN (MEDICARE REPLACEMENT HMO) [id number] Neil Brown [id number] Neil Brown Notes Date Note Type Note Provider Name and Address Organization Details Recorded Time 4 text/html I am seeing the patient today under the supervision of Dr. Martin who was available but who did not see the patient. HPI: Patient presents for evaluation of ongoing bilateral lateral hip pain. Patient endorses he has a previous history of lumbar fusion L5-S1 done with by Dr. Ramesh in either May or June 2023. Patient reports prior to this he had significant bilateral radiating sciatic pain that was alleviated with surgery. He also endorsed at that same time he started to have this bilateral lateral hip pain and cramping sensation along the anterior thighs bilaterally. He reports he felt he initially just had to live with this but has become more concerned as he is having difficulty going up and down stairs and feels that his gait has somewhat altered. He denies any previous treatment for his hips at this time. Previous treatment for back is noted patient also underwent physical therapy prior to surgery and has had corticosteroid injections in the past. TREATMENTS: As noted in HPI Past family, medical, social history and review of systems has been reviewed, updated and signed by me and is located in the patient s chart. Examination: The patient is well appearing, alert and oriented x3 and in no acute distress. Gait is antalgic patient has Trendelenburg like gait. Patient is able to transition from seated to standing position with some difficulty stands in a forward flexed position at the hips.Inspection of the spine reveals no step off, deformity or overlying skin changes or atrophy. Well-healed midline surgical incision.The spine is nontender over the midline, patient notes tenderness along right iliolumbar paravertebral musculature. He is significantly tender over bilateral greater trochanters.Range of motion of the Lumbar spine is 60% of normalRange of motion of the hips somewhat limited on the left and internal and external rotation full on the right with no discomfort noted.Straight leg raise testing negative bilaterallyStrength in lower extremity myotomes 5/5 bilaterally.Sensation intact.Re e xes normal 2+at knee and ankle. No ankle clonus X-rays ordered, obtained and reviewed at [facility], 2 views of the lumbar spine reveals no fractures, instability or bony lesions. Intact surgical hardware and pedicle screws in place. Facet arthropathy noted at levels above. 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 Impression/Plan: Bilateral trochanteric bursitis. Discussed with the patient that we could attempt an injection today into the left hip as this is about bothering him most at this time. We would start with a referral to physical therapy to work on pelvic stabilization and gluteal activation. Discussed with the patient that this would ideally help alleviate symptoms and prevent them from returning. Discussed risk and benefits of injection with the patient please see procedure noted attached. Patient gave informed consent and injection was given today. Patient was given a referral for physical therapy plans to call [facility] in [place] where he is gone in the past and has good rapport with the therapist. Patient will follow-up in 2 weeks to assess effectiveness of the injection and potentially inject the right side at that time if he is doing well. All their questions asked and answered. Patient expressed understanding and agreement with the plan. [facility] speech recognition wharf attendant software was used to create portions of this document. An attempt at proofreading has been made to minimize errors. Please call for corrections. ELANA MAYES PA-C [address] [facility] [address], [place], [address], [facility] 12/27/2023 09:25:52 4 text/html I am seeing the patient today under the supervision of Dr. Mendez who was available but who did not see the patient. HPI: Patient presents for evaluation of ongoing bilateral lateral hip pain. Patient endorses he has a previous history of lumbar fusion L5-S1 done with by Dr. Ramesh in either May or June 2023. He does report he has a follow-up with her coming up in the near future. Patient had a previous injection at last appointment to the left hip. His left hip is feeling significantly better he is still having continued pain along the lateral portion of the right hip. He is interested in another injection today patient reports in follow-up today in regards to bilateral trochanteric bursitis. TREATMENTS: As noted in HPI Past family, medical, social history and review of systems has been reviewed, updated and signed by me and is located in the patient s chart. Examination: The patient is well appearing, alert and oriented x3 and in no acute distress. Gait is antalgic patient has Trendelenburg like gait. Patient is able to transition from seated to standing position with some difficulty stands in a forward flexed position at the hips.Inspection of the spine reveals no step off, deformity or overlying skin changes or atrophy. Well-healed midline surgical incision.The spine is nontender over the midline, patient notes tenderness along right iliolumbar paravertebral musculature. He is significantly tender over bilateral greater trochanters.Range of motion of the Lumbar spine is 60% of normalRange of motion of the hips somewhat limited on the left and internal and external rotation full on the right with no discomfort noted.Straight leg raise testing negative bilaterallyStrength in lower extremity myotomes 5/5 bilaterally.Sensation intact.Re e xes normal 2+at knee and ankle. No ankle clonus X-rays ordered, obtained and reviewed at previous appointment [facility], 2 views of the lumbar spine reveals no fractures, instability or bony lesions. Intact surgical hardware and pedicle screws in place. Facet arthropathy noted at levels above. Disc heights appear to be preserved above the level of surgery. 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 Impression/Plan: Bilateral trochanteric bursitis. discussed with the patient today I am happy to give him a weeks another trochanteric bursal injection into the right hip at this time. Please see attached procedure note. Patient did discuss at the end of the appointment he has been having some left-sided foot drop he is being followed by the [place] and has been referred back to Dr. Ramesh he has an EMG that scheduled by the [place] in 1028 he is also doing physical therapy at [facility] but is still waiting to get into their office. I discussed with the patient as the foot drop is continued and he feels that it is related to his low back pain and surgery that he would be best served by speaking with Dr. Ramesh versus he has his follow-up we did say would be happy to see him back for a secondary opinion as needed however strongly encouraged him to follow-up with his primary surgeon at this time and wait for the EMG outcomes to be reviewed. Patient expressed understanding of the plan all her questions asked and answered. Patient will follow-up as needed in our office for his bilateral trochanteric bursitis. [employer] speech recognition wharf attendant software was used to create portions of this document. An attempt at proofreading has been made to minimize errors. Please call for corrections. ELA[facility] MAYES PA-C [address] [facility] [address], [place], [address], [facility] 02/10/2024 07:56:25
--- OUTSIDE RECORDS SUMMARY | 2025-04-16 10:19 | XMS_ITS | Data Portability ---
Author Organization [facility], Main Office Address [address] [facility] [address] [place] [address] Care Team Providers Care Beehive Kiln Supervisor Name Role Phone YOSSI MISHA Product Developer NATALIE SANFORD Product Developer JING MCKINNEY Referring Provider ERIC HANNON Hand Surgeon NAYA LARSON Orthopedic Surgeon DOMINGO TRUONG Injection Molding Machine Operator MADELEINE JONES Primary Care Provider SUN PEREA Referring Provider [phone] [facility] Referring Provider Assessment No assessment recorded. Plan of Treatment Reminders Order Date Submit Date Provider Last Modified By Organization Details Last Modified Time Details Appointments FOLL OW UP 2025 11:30A M MADELEINE JONES MD Not available Not available Not available Lab feca l occu lt bloo d, immu noas say, stoo l 2024 025 ALANNA In-Office Order, Internal Use Only DO Not Attach Compendium DO Not Attach Compendium, Do Not Delete/merge, [id number] 03/09/2025 16:12:48 urin [place] is comp lete , refl ex cult ure 2024 025 ALANNA [facility] (Centralized Electronic Ordering - All Locations), Patient Can Go To The Location Of Their Choice, [id number] 02/15/2025 12:05:59 infl ynes tion davy william or plas brianne 2024 025 ALANNA [facility] (Centralized Electronic Ordering - All Locations), Patient Can Go To The Location Of Their Choice, 02/17/2025 06:09:23 HIV 1 + 2, mean ingf ul use set 2024 025 ALANNA [facility] ([facility] - [facility] Locations), Patient Can Go To The Location Of Their Choice, 02/17/2025 06:09:24 hepa tic func tion pane l, seru m 2024 025 ALANNA [facility] (Central[facility] Order[facility] - All Locations), Patient Can Go To The Location Of Their Choice, 02/17/2025 06:09:22 BMP, seru m or plas ma 2024 025 ALANNA [facility] (Central[facility] Order[facility] - All Locations), Patient Can Go To The Location Of Their Choice, 02/17/2025 06:09:21 feca l occu lt bloo d, immu noas say, stoo l 2024 025 MOUSIE In-Office Order, Internal Use Only DO Not Attach Compendium DO Not Attach Compendium, Do Not Delete/merge, 02/12/2025 15:13:25 hepa mandi s pane l (A+B +C), acut e, seru m 2024 025 MOUSIE [facility] (Central[facility] Ordering - All Locations), Patient Can Go To The Location Of Their Choice, 02/11/2025 12:49:55 gamm a-gl utam yl junior sfer ase (ggt ), seru m 2024 025 MOUSIE [facility] (Central[facility] Ordering - All Locations), Patient Can Go To The Location Of Their Choice, 02/17/2025 06:09:24 afp (alp mcgrath-f etop rote in) tumo r danica er, seru m or plas ma 2024 025 ALANNA [facility] (Centralized Electronic Ordering - All Locations), Patient Can Go To The Location Of Their Choice, 02/17/2025 06:09:23 walter line phos phat ase isoe nzym es, seru m or plas ma 2024 025 ALANNA [facility] (Centralized Electronic Ordering - All Locations), Patient Can Go To The Location Of Their Choice, 02/17/2025 06:09:22 BMP, seru m or plas ma 2024 025 ALANNA [facility] (Centralized Electronic Ordering - All Locations), Patient Can Go To The Location Of Their Choice, 12/08/2024 06:07:20 CBC w/ auto diff 2024 025 ALANNA [facility], [address], [place], [address], 12/08/2024 06:07:19 hepa tic func tion pane l, seru m 2024 025 ALANNA [facility], [address], [place], [address], 12/08/2024 06:07:21 C reac tive prot ein, QN, seru m or plas ma 2024 025 ALANNA [facility] (Centralized Electronic Ordering - All Locations), Patient Can Go To The Location Of Their Choice, 12/08/2024 06:07:22 lipi d pane l, seru m 2024 025 ALANNA [facility] (Centralized Electronic Ordering - All Locations), Patient Can Go To The Location Of Their Choice, 12/08/2024 06:07:22 [address] roen tero logi st refe rral - for cons ider atio n of repe at colo nosc opy due to breezy ent havi ng weig ht loss . FIT was posi tive , FOBT nega tive . CT abdo men show ed dive rtic suyapa 2024 [facility], [address], [place], [address], 03/10/2025 13:20:04 Procedures None arun rded . Surgeries None arun rded . Imaging CT, ches t, w/o cont rast - over the last year breezy ent has been yamel briscoe ht loss , curr ent caus e unkn own 2024 025 gladys [facility] (Central Scheduling Radiology), [address] [place], [address], 03/10/2025 12:45:53 XR, ches t, 2 view 2024 025 ALANNA Not available 02/13/2025 10:02:12 CT, abdo men + pelv is, w/ cont rast - pt yamel juarez loss and decr ease d appe tite orde red to r/ou t mass 2024 025 [facility] (Ct Scan), [address] [place], [address], 03/05/2025 21:34:16 XR, abdo men, comp lete 2024 025 [email or web address] Not available 12/22/2024 10:01:13 US, anna yanes george - inte rmit tent 2024 025 [facility] (Ultrasound), [address] [place], [address], 01/26/2025 12:40:34 Medication Orders Nexl etol 180 mg tabl et 2024 025 MOUSIE [facility] #[id number], [address] [place], [id number], 02/11/2025 12:56:58 deso nide 0.05 % topi nanci oint ment 2024 025 MOUSIE [facility] #52854, [address] [place], [id number], 02/11/2025 11:22:34 lindsay pent in 300 mg caps ule 2024 025 [email or web address]655, [address] [place], [id number], 03/09/2025 13:34:31 lindsay pent in 600 mg tabl et 2024 025 ALANNA [email or web address] #[facility]75, [address] [place], [id number], 12/07/2024 09:51:34 Patient TargetsNo targets recorded. Patient Instructions Encounter Date Encounter Id Patient Instructions Last Modified By Organization Details Last Modified Time 08/24/2024 [id number] advance care planning: care instructions Not available 08/24/2024 09:48:52 insomnia: care instructions Not available 08/24/2024 09:48:52 high blood pressure: care instructions Not available 08/24/2024 09:48:52 learning about high blood pressure Not available 08/24/2024 09:48:52 carotid stenosis : care instructions Not available 08/24/2024 09:48:52 12/07/2024 [id number] insomnia: care instructions Not available 12/07/2024 10:23:11 high blood pressure: care instructions Not available 12/07/2024 10:23:11 learning about high blood pressure Not available 12/07/2024 10:23:11 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 FIT was positive, FOBT negative. CT abdomen showed diverticuli Referring Physician: Madeleine Jones, Family Medicine, Encounter Date: 03/09/2025 Results Created Date Observation Date Name Description Value Unit Range Abnormal Flag Note LastModifiedBy Organization Detail LastModifiedTime 12/08/19 25 12/07/2024 CBC WITH DIFFE RENTI AL/PL ATELE T WBC 6.8 x10e3 /uL 3.4-10 .8 normal Not Available [facility] ([facility]) [address] [facility], [place], [address], 12/08/2024 06:07:19 12/08/19 25 12/07/2024 CBC WITH DIFFE RENTI AL/PL ATELE T RBC 5.15 x10e6 /uL 4.14-5 .80 normal Not Available [facility] ([facility]) [address] [facility], [place], [address], 12/08/2024 06:07:19 12/08/19 25 12/07/2024 CBC WITH DIFFE RENTI AL/PL ATELE T hemoglobin 16.4 g/dL 13.0-1 7.7 normal Not Available [facility] ([facility]) [address] [facility], [place], [address], 12/08/2024 06:07:19 12/08/19 25 12/07/2024 CBC WITH DIFFE RENTI AL/PL ATELE T hematocrit 49.6 % 37.5-5 1.0 normal Not Available [facility] ([facility]) [address] [facility], [place], [address], 12/08/2024 06:07:19 12/08/19 25 12/07/2024 CBC WITH DIFFE RENTI AL/PL ATELE T MCV 96 fL 79-97 normal Not Available [facility] ([facility]) [address] [place], [address], 12/08/2024 06:07:19 12/08/19 25 12/07/2024 CBC WITH DIFFE RENTI AL/PL ATELE T MCH 31.8 pg 26.6-3 3.0 normal Not Available [facility] ([facility]) [address] [facility], [place], [address], 12/08/2024 06:07:19 12/08/19 25 12/07/2024 CBC WITH DIFFE RENTI AL/PL ATELE T MCHC 33.1 g/dL 31.5-3 5.7 normal Not Available [facility] ([facility]) [address] [facility], [place], [address], 12/08/2024 06:07:19 12/08/19 25 12/07/2024 CBC WITH DIFFE RENTI AL/PL ATELE T RDW 13.3 % 11.6-1 5.4 Not Available [facility] ([facility]) [address] [facility], [place], [address], 12/08/2024 06:07:19 12/08/19 25 12/07/2024 CBC WITH DIFFE RENTI AL/PL ATELE T platelets 196 x10e3 /uL 150-45 0 normal Not Available [facility] ([facility]) [address] [facility], [place], [address], 12/08/2024 06:07:19 12/08/19 25 12/07/2024 CBC WITH DIFFE RENTI AL/PL ATELE T neutrophils 62 % not estab. normal Not Available [facility] ([facility]) [address] [facility], [place], [address], 12/08/2024 06:07:19 12/08/19 25 12/07/2024 CBC WITH DIFFE RENTI AL/PL ATELE T lymphs 20 % not estab. normal Not Available [facility] ([facility]) [address] [facility], [place], [address], 12/08/2024 06:07:19 12/08/19 25 12/07/2024 CBC WITH DIFFE RENTI AL/PL ATELE T monocytes 12 % not estab. normal Not Available [facility] ([facility]) [address] [facility], [place], [address], 12/08/2024 06:07:19 12/08/19 25 12/07/2024 CBC WITH DIFFE RENTI AL/PL ATELE T eos 4 % not estab. normal Not Available [facility] ([facility]) [address] [facility], [place], [address], 12/08/2024 06:07:19 12/08/19 25 12/07/2024 CBC WITH DIFFE RENTI AL/PL ATELE T basos 1 % not estab. normal Not Available [facility] ([facility]) [address] [facility], [place], [address], 12/08/2024 06:07:19 12/08/19 25 12/07/2024 CBC WITH DIFFE RENTI AL/PL ATELE T immature cells [employer] Not Available [facility] ([facility]) [address] [place], [address], 12/08/2024 06:07:19 12/08/19 25 12/07/2024 CBC WITH DIFFE RENTI AL/PL ATELE T neutrophils (absolute) 4.3 x10e3 /uL 1.4-7. 0 normal Not Available [facility] ([facility]) [address] [place], [address], 12/08/2024 06:07:19 12/08/19 25 12/07/2024 CBC WITH DIFFE RENTI AL/PL ATELE T lymphs (absolute) 1.3 x10e3 /uL 0.7-3. 1 normal Not Available [facility] ([facility]) [address] [place], [address], 12/08/2024 06:07:19 12/08/19 25 12/07/2024 CBC WITH DIFFE RENTI AL/PL ATELE T monocytes(ab solute) 0.8 x10e3 /uL 0.1-0. 9 normal Not Available [facility] ([facility]) [address] [place], [address], 12/08/2024 06:07:19 12/08/19 25 12/07/2024 CBC WITH DIFFE RENTI AL/PL ATELE T eos (absolute) 0.3 x10e3 /uL 0.0-0. 4 normal Not Available [facility] ([facility]) [address] [place], [address], 12/08/2024 06:07:19 12/08/19 25 12/07/2024 CBC WITH DIFFE RENTI AL/PL ATELE T baso (absolute) 0.0 x10e3 /uL 0.0-0. 2 normal Not Available [facility] ([facility]) [address] [facility], [place], [address], 12/08/2024 06:07:19 12/08/19 25 12/07/2024 CBC WITH DIFFE RENTI AL/PL ATELE T immature granulocytes 1 % not estab. Not Available [facility] ([facility]) [address] [facility], [place], [address], 12/08/2024 06:07:19 12/08/19 25 12/07/2024 CBC WITH DIFFE RENTI AL/PL ATELE T immature grans (abs) 0.0 x10e3 /uL 0.0-0. 1 Not Available [facility] ([facility]) [address] [facility], [place], [address], 12/08/2024 06:07:19 12/08/19 25 12/07/2024 CBC WITH DIFFE RENTI AL/PL ATELE T NRBC [employer] Not Available [facility] ([facility]) [address] [facility], [place], [address], 12/08/2024 06:07:19 12/08/1912/07/2024 CBC WITH DIFFE RENTI AL/PL ATELE T hematology comments: [employer] Not Available [facility] ([facility]) [address] [facility], [place], [address], 12/08/2024 06:07:19 12/08/1912/07/2024 BASIC METAB OLIC PANEL (8) interpretati on: Commen t GFR estim ate at the follo wing level for >or=3 month s is class ified as follo ws: GFR WITH KIDNE Y DAMAG E WITHO UT KIDNE Y DAMAG E >or=9 0 Stage 1 Eden l 60-89 Stage 2 Decr eased GFR 30-59 Stage 3 Stage 3 15-29 Stage 4 Stage 4 <15 (or dialy sis) Stage 5 Stage 5 Estim ated GFR will over estim ate true GFR if serum creat inine is risin g as in acute renal failu re and will under estim ate true GFR if serum creat inine is decli lore as in resol ving acute renal failu re. Addit ional infor catalina radha may be found at www.k doqi. org. Not Available [facility] ([facility]) [address] [place], [address], 12/08/2024 06:07:20 12/08/19 25 12/08/2024 BASIC METAB OLIC PANEL (8) glucose 102 mg/dL 70-99 above high normal Not Available [facility] ([facility]) [address] [place], [address], 12/08/2024 06:07:20 12/08/19 25 12/08/2024 BASIC METAB OLIC PANEL (8) BUN 10 mg/dL 8-27 normal Not Available [facility] ([facility]) [address] [place], [address], 12/08/2024 06:07:20 12/08/19 25 12/08/2024 BASIC METAB OLIC PANEL (8) creatinine 0.91 mg/dL 0.76-1 .27 normal Not Available [facility] ([facility]) [address] [place], [address], 12/08/2024 06:07:20 12/08/19 25 12/08/2024 BASIC METAB OLIC PANEL (8) eGFR 87 mL/mi n/1.7 3 >59 normal Not Available [facility] ([facility]) [address] [place], [address], 12/08/2024 06:07:20 12/08/19 25 12/08/2024 BASIC METAB OLIC PANEL (8) BUN/creatini ne ratio 11 10-24 normal Not Available [facility] ([facility]) [address] [facility] [place], [address], 12/08/2024 06:07:20 12/08/19 25 12/08/2024 BASIC METAB OLIC PANEL (8) sodium 140 mmol/ L 134-14 4 normal Not Available [facility] ([facility]) [address] [facility] [place], [address], 12/08/2024 06:07:20 12/08/19 25 12/08/2024 BASIC METAB OLIC PANEL (8) potassium 4.5 mmol/ L 3.5-5. 2 normal Not Available [facility] ([facility]) [address] [facility] [place], [address], 12/08/2024 06:07:20 12/08/19 25 12/08/2024 BASIC METAB OLIC PANEL (8) chloride 101 mmol/ L 96-106 normal Not Available [facility] ([facility]) [address] [facility] [place], [address], 12/08/2024 06:07:20 12/08/19 25 12/08/2024 BASIC METAB OLIC PANEL (8) carbon dioxide, total 23 mmol/ L 20-29 normal Not Available [facility] ([facility]) [address] [place], [address], 12/08/2024 06:07:20 12/08/19 25 12/08/2024 BASIC METAB OLIC PANEL (8) calcium 9.8 mg/dL 8.6-10 .2 normal Not Available [facility] ([facility]) [address] [place], [address], 12/08/2024 06:07:20 12/08/19 25 12/08/2024 HEPAT IC FUNCT ION PANEL (7) protein, total 6.7 g/dL 6.0-8. 5 normal Not Available [facility] ([facility]) [address] [facility] [place], [address], 12/08/2024 06:07:21 12/08/19 25 12/08/2024 HEPAT IC FUNCT ION PANEL (7) albumin 4.3 g/dL 3.8-4. 8 normal Not Available [facility] ([facility]) [address] [facility] [place], [address], 12/08/2024 06:07:21 12/08/19 25 12/08/2024 HEPAT IC FUNCT ION PANEL (7) bilirubin, total 0.4 mg/dL 0.0-1. 2 normal Not Available [facility] ([facility]) [address] [facility] [place], [address], 12/08/2024 06:07:21 12/08/19 25 12/08/2024 HEPAT IC FUNCT ION PANEL (7) bilirubin, direct 0.15 mg/dL 0.00-0 .40 normal Not Available [facility] ([facility]) [address] [facility] [place], [address], 12/08/2024 06:07:21 12/08/19 25 12/08/2024 HEPAT IC FUNCT ION PANEL (7) alkaline phosphatase 122 IU/L 44-121 above high normal Not Available [facility] ([facility]) [address] [facility] [place], [address], 12/08/2024 06:07:21 12/08/19 25 12/08/2024 HEPAT IC FUNCT ION PANEL (7) AST (SGOT) 25 IU/L 0-40 normal Not Available [facility] ([facility]) [address] [facility] [place], [address], 12/08/2024 06:07:21 12/08/19 25 12/08/2024 HEPAT IC FUNCT ION PANEL (7) ALT (SGPT) 19 IU/L 0-44 normal Not Available [facility] ([facility]) [address] [place], [address], 12/08/2024 06:07:21 12/08/19 25 12/08/2024 LIPID PANEL cholesterol, total 113 mg/dL 100-19 9 normal Not Available [facility] ([facility]) [address] [facility] [place], [address], 12/08/2024 06:07:22 12/08/19 25 12/08/2024 LIPID PANEL triglyceride s 177 mg/dL 0-149 above high normal Not Available [facility] ([facility]) [address] [facility] [place], [address], 12/08/2024 06:07:22 12/08/19 25 12/08/2024 LIPID PANEL HDL cholesterol 41 mg/dL >39 normal Not Available [facility] ([facility]) [address] [facility] [place], [address], 12/08/2024 06:07:22 12/08/19 25 12/08/2024 LIPID PANEL VLDL cholesterol nanci 29 mg/dL 5-40 Not Available [facility] ([facility]) [address] [facility] [place], [address], 12/08/2024 06:07:22 12/08/19 25 12/08/2024 LIPID PANEL LDL chol calc ([facility]) 43 mg/dL 0-99 Not Available [facility] ([facility]) [address] [place], [address], 12/08/2024 06:07:22 12/08/19 25 12/08/2024 LIPID PANEL LDL calc comment: [employer] Not Available [facility] ([facility]) [address] [facility] [place], [address], 12/08/2024 06:07:22 12/08/19 25 12/08/2024 C-JEFRY CTIVE PROTE IN, QUANT C-reactive protein, quant 2 mg/L 0-10 normal Not Available [facility] ([facility]) [address] [facility], [place], [address], 12/08/2024 06:07:22 02/12/20 25 02/15/2025 CBC WITH DIFFE RENTI AL/PL ATELE T WBC COMMEN T x10e3 /uL Test not perfo rmed due to the age of this speci men. Not Available [facility] ([facility]) [address] [facility], [place], [address], 02/16/2025 08:07:32 02/12/20 25 02/15/2025 CBC WITH DIFFE RENTI AL/PL ATELE T RBC TNP Test not perfo rmed Not Available [facility] ([facility]) [address] [facility], [place], [address], 02/16/2025 08:07:32 02/12/20 25 02/15/2025 CBC WITH DIFFE RENTI AL/PL ATELE T hemoglobin TNP Test not perfo rmed Not Available [facility] ([facility]) [address] [facility], [place], [address], 02/16/2025 08:07:32 02/12/20 25 02/15/2025 CBC WITH DIFFE RENTI AL/PL ATELE T hematocrit TNP Test not perfo rmed Not Available [facility] ([facility]) [address] [place], [address], 02/16/2025 08:07:32 02/12/20 25 02/15/2025 CBC WITH DIFFE RENTI AL/PL ATELE T MCV [employer] Not Available [facility] ([facility]) [address] [place], [address], 02/16/2025 08:07:32 02/12/20 25 02/15/2025 CBC WITH DIFFE RENTI AL/PL ATELE T MCH [employer] Not Available [facility] ([facility]) [address] [place], [address], 02/16/2025 08:07:32 02/12/20 25 02/15/2025 CBC WITH DIFFE RENTI AL/PL ATELE T MCHC [employer] Not Available [facility] ([facility]) [address] [facility], [place], [address], 02/16/2025 08:07:32 02/12/20 25 02/15/2025 CBC WITH DIFFE RENTI AL/PL ATELE T RDW [employer] Not Available [facility] ([facility]) [address] [facility], [place], [address], 02/16/2025 08:07:32 02/12/20 25 02/15/2025 CBC WITH DIFFE RENTI AL/PL ATELE T platelets TNP Test not perfo rmed Not Available [facility] ([facility]) [address] [facility], [place], [address], 02/16/2025 08:07:32 02/12/20 25 02/15/2025 CBC WITH DIFFE RENTI AL/PL ATELE T neutrophils TNP Test not perfo rmed Not Available [facility] ([facility]) [address] [place], [address], 02/16/2025 08:07:32 02/12/20 25 02/15/2025 CBC WITH DIFFE RENTI AL/PL ATELE T lymphs TNP Test not perfo rmed Not Available [facility] ([facility]) [address] [place], [address], 02/16/2025 08:07:32 02/12/20 25 02/15/2025 CBC WITH DIFFE RENTI AL/PL ATELE T monocytes TNP Test not perfo rmed Not Available [facility] ([facility]) [address] [place], [address], 02/16/2025 08:07:32 02/12/20 25 02/15/2025 CBC WITH DIFFE RENTI AL/PL ATELE T eos TNP Test not perfo rmed Not Available [facility] ([facility]) [address] [place], [address], 02/16/2025 08:07:32 02/12/20 25 02/15/2025 CBC WITH DIFFE RENTI AL/PL ATELE T basos [employer] Not Available [facility] ([facility]) [address] [place], [address], 02/16/2025 08:07:32 02/12/20 25 02/15/2025 CBC WITH DIFFE RENTI AL/PL ATELE T immature cells [employer] Not Available [facility] ([facility]) [address] [place], [address], 02/16/2025 08:07:32 02/12/20 25 02/15/2025 CBC WITH DIFFE RENTI AL/PL ATELE T neutrophils (absolute) [employer] Not Available [facility] ([facility]) [address] [place], [address], 02/16/2025 08:07:32 02/12/20 25 02/15/2025 CBC WITH DIFFE RENTI AL/PL ATELE T lymphs (absolute) TNP Test not perfo rmed Not Available [facility] ([facility]) [address] [place], [address], 02/16/2025 08:07:32 02/12/20 25 02/15/2025 CBC WITH DIFFE RENTI AL/PL ATELE T monocytes(ab solute) [employer] Not Available [facility] ([facility]) [address] [place], [address], 02/16/2025 08:07:32 02/12/20 25 02/15/2025 CBC WITH DIFFE RENTI AL/PL ATELE T eos (absolute) TNP Test not perfo rmed Not Available [facility] ([facility]) [address] [place], [address], 02/16/2025 08:07:32 02/12/20 25 02/15/2025 CBC WITH DIFFE RENTI AL/PL ATELE T baso (absolute) TNP Test not perfo rmed Not Available [facility] ([facility]) [address] [facility], [place], [address], 02/16/2025 08:07:32 02/12/20 25 02/15/2025 CBC WITH DIFFE RENTI AL/PL ATELE T immature granulocytes [employer] Not Available [facility] ([facility]) [address] [facility], [place], [address], 02/16/2025 08:07:32 02/12/20 25 02/15/2025 CBC WITH DIFFE RENTI AL/PL ATELE T immature grans (abs) [employer] Not Available [facility] ([facility]) [address] [facility], [place], [address], 02/16/2025 08:07:32 02/12/20 25 02/15/2025 CBC WITH DIFFE RENTI AL/PL ATELE T NRBC [employer] Not Available [facility] ([facility]) [address] [facility], [place], [address], 02/16/2025 08:07:32 02/12/20 25 02/15/2025 CBC WITH DIFFE RENTI AL/PL ATELE T hematology comments: [employer] Not Available [facility] ([facility]) [address] [facility], [place], [address], 02/16/2025 08:07:32 02/12/20 25 02/16/2025 IRON AND TIBC iron bind.cap.(TI BC) 322 ug/dL 250-45 0 normal Not Available [facility] ([facility]) [address] [facility], [place], [address], 02/16/2025 08:07:32 02/12/20 25 02/16/2025 IRON AND TIBC UIBC 240 ug/dL 111-34 3 normal Not Available [facility] ([facility]) [address] [facility], [place], [address], 02/16/2025 08:07:32 02/12/20 25 02/16/2025 IRON AND TIBC iron 82 ug/dL 38-169 normal Not Available [facility] ([facility]) [address] [facility], [place], [address], 02/16/2025 08:07:32 02/12/2002/16/2025 IRON AND TIBC iron saturation 25 % 15-55 normal Not Available [facility] ([facility]) [address] [facility], [place], [address], 02/16/2025 08:07:32 02/12/2002/16/2025 BRIANNA TIN ferritin 328 NG/mL 30-400 normal Not Available [facility] ([facility]) [address] [facility], [place], [address], 02/16/2025 08:07:33 02/12/2002/15/2025 OKSANA EN AUTHO RIZAT ION written authorizatio n Commen t Oksana en Autho rizat ion Recei nisha. Autho rizat ion recei nisha from FELIPA Israel for Link Reque st on 02-15 Logge d by Ebonie pena Not Available [facility] ([facility]) [address] [facility], [place], [address], 02/16/2025 08:07:33 02/12/2002/15/[address] PROBL EM request problem COMMEN T Test not perfo rmed due to the age of this speci men. TEST: [id number] CBC With Diffe renti al/Pl atele t Not Available [facility] ([facility]) [address] [place], [address], 02/16/2025 08:07:33 02/12/20 25 02/12/2025 BASIC METAB OLIC PANEL (8) glucose 82 mg/dL 70-99 normal Not Available [facility] ([facility]) [address] [place], [address], 02/17/2025 06:09:21 02/12/20 25 02/12/2025 BASIC METAB OLIC PANEL (8) BUN 10 mg/dL 8-27 normal Not Available [facility] ([facility]) [address] [place], [address], 02/17/2025 06:09:21 02/12/20 25 02/12/2025 BASIC METAB OLIC PANEL (8) creatinine 0.94 mg/dL 0.76-1 .27 normal Not Available [facility] ([facility]) [address] [facility], [place], [address], 02/17/2025 06:09:21 02/12/20 25 02/12/2025 BASIC METAB OLIC PANEL (8) eGFR 83 mL/mi n/1.7 3 >59 normal Not Available [facility] ([facility]) [address] [place], [address], 02/17/2025 06:09:21 02/12/20 25 02/12/2025 BASIC METAB OLIC PANEL (8) BUN/creatini ne ratio 11 10-24 normal Not Available [facility] ([facility]) [address] [place], [address], 02/17/2025 06:09:21 02/12/20 25 02/12/2025 BASIC METAB OLIC PANEL (8) sodium 138 mmol/ L 134-14 4 normal Not Available [facility] ([facility]) [address] [place], [address], 02/17/2025 06:09:21 02/12/20 25 02/12/2025 BASIC METAB OLIC PANEL (8) potassium 4.2 mmol/ L 3.5-5. 2 normal Not Available [facility] ([facility]) [address] [facility] [place], [address], 02/17/2025 06:09:21 02/12/20 25 02/12/2025 BASIC METAB OLIC PANEL (8) chloride 99 mmol/ L 96-106 normal Not Available [facility] ([facility]) [address] [facility] [place], [address], 02/17/2025 06:09:21 02/12/20 25 02/12/2025 BASIC METAB OLIC PANEL (8) carbon dioxide, total 24 mmol/ L 20-29 normal Not Available [facility] ([facility]) [address] [facility] [place], [address], 02/17/2025 06:09:21 02/12/20 25 02/12/2025 BASIC METAB OLIC PANEL (8) calcium 9.7 mg/dL 8.6-10 .2 normal Not Available [facility] ([facility]) [address] [facility] [place], [address], 02/17/2025 06:09:21 02/12/2002/12/2025 HEPAT IC FUNCT ION PANEL (7) protein, total 6.9 g/dL 6.0-8. 5 normal Not Available [facility] ([facility]) [address] [facility] [place], [address], 02/17/2025 06:09:22 02/12/20 25 02/12/2025 HEPAT IC FUNCT ION PANEL (7) albumin 4.4 g/dL 3.8-4. 8 normal Not Available [facility] ([facility]) [address] [facility] [place], [address], 02/17/2025 06:09:22 02/12/20 25 02/12/2025 HEPAT IC FUNCT ION PANEL (7) bilirubin, total 0.4 mg/dL 0.0-1. 2 normal Not Available [facility] ([facility]) [address] [facility], [place], [address], 02/17/2025 06:09:22 02/12/20 25 02/12/2025 HEPAT IC FUNCT ION PANEL (7) bilirubin, direct 0.11 mg/dL 0.00-0 .40 normal Not Available [facility] ([facility]) [address] [facility] [place], [address], 02/17/2025 06:09:22 02/12/20 25 02/12/2025 HEPAT IC FUNCT ION PANEL (7) alkaline phosphatase 114 IU/L 47-123 normal Ple ase note refer ence inter waldo llanes e Not Available [facility] ([facility]) [address] [facility], [place], [address], 02/17/2025 06:09:22 02/12/20 25 02/12/2025 HEPAT IC FUNCT ION PANEL (7) AST (SGOT) 31 IU/L 0-40 normal Not Available [facility] ([facility]) [address] [facility], [place], [address], 02/17/2025 06:09:22 02/12/20 25 02/12/2025 HEPAT IC FUNCT ION PANEL (7) ALT (SGPT) 27 IU/L 0-44 normal Not Available [facility] ([facility]) [address] [facility], [place], [address], 02/17/2025 06:09:22 02/12/20 25 02/17/2025 ALK PHOS ISOEN ZYME liver fraction: 64 % 13-88 Not Available [facility] ([facility]) [address] [facility], [place], [address], 02/17/2025 06:09:22 02/12/20 25 02/17/2025 ALK PHOS ISOEN ZYME bone fraction: 34 % 12-68 Not Available [facility] ([facility]) [address] [facility] [place], [address], 02/17/2025 06:09:22 02/12/20 25 02/17/2025 ALK PHOS ISOEN ZYME intestinal frac.: 2 % 0-18 Not Available [facility] ([facility]) [address] [facility], [place], [address], 02/17/2025 06:09:22 02/12/20 25 02/12/2025 ESR-W ES+CR P sedimentatio n rate-westerg angela 3 mm/HR 0-30 normal Not Available [facility] ([facility]) [address] [facility], [place], [address], 02/17/2025 06:09:23 02/12/2002/12/2025 ESR-W ES+CR P C-reactive protein, quant 1 mg/L 0-10 normal Not Available [facility] ([facility]) [address] [facility], [place], [address], 02/17/2025 06:09:23 02/12/2002/12/2025 AFP, SERUM , TUMOR MARKE R AFP, serum, tumor marker 2.9 NG/mL 0.0-8. 4 normal Marissa Diagn ostic s Elect marissa milum inesc ence Immun oassa y (ECLI A) Value s obtai addi with diffe rent assay metho ds or kits canno t be used inter llanes eably . Resul ts canno t be inter prete d as absol [place] evide nce of the prese nce or absen [facility]. This test is not inter preta ble in pregn ant femal es. Not Available [facility] ([facility]) [address] [facility], [place], [address], 02/17/2025 06:09:23 02/12/2002/12/2025 HIV AB/P2 4 AG WITH REFLE X HIV Ab/P24 Ag screen Non Reacti ve non reacti ve HIV-1 /HIV- 2 antib odies and HIV-1 p24 antig en were NOT detec kath. There is no labor atory evide nce of HIV infec tion. HIV Negat annetta Not Available [facility] ([facility]) [address] [facility], [place], [address], 02/17/2025 06:09:24 02/12/20 25 02/12/2025 GGT WITH REFLE X AMYLA SE/LI PASE GGT 20 IU/L 0-65 normal Not Available [facility] ([facility]) [address] [facility], [place], [address], 02/17/2025 06:09:24 02/13/20 25 02/12/2025 UA/M W/RFL X CULTU RE, ROUTI NE specific gravity 1.015 1.005- 1.030 normal Not Available [facility] ([facility]) [address] [facility], [place], [address], 02/15/2025 12:05:59 02/13/20 25 02/12/2025 UA/M W/RFL X CULTU RE, ROUTI NE pH 7.0 5.0-7. 5 normal Not Available [facility] ([facility]) [address] [place], [address], 02/15/2025 12:05:59 02/13/20 25 02/12/2025 UA/M W/RFL X CULTU RE ROUTI NE urine-color Yellow yellow Not Available [facility] ([facility]) [address] [place], [address], 02/15/2025 12:05:59 02/13/20 25 02/12/2025 UA/M W/RFL X CULTU RE ROUTI NE appearance Clear clear Not Available [facility] ([facility]) [address] [place], [address], 02/15/2025 12:05:59 02/13/20 25 02/12/2025 UA/M W/RFL X CULTU RE, ROUTI NE WBC esterase Negati ve negati ve Not Available [facility] ([facility]) [address] [facility], [place], [address], 02/15/2025 12:05:59 02/13/20 25 02/12/2025 UA/M W/RFL X CULTU RE, ROUTI NE protein Negati ve negati ve/tra ce Not Available [facility] ([facility]) [address] [facility], [place], [address], 02/15/2025 12:05:59 02/13/20 25 02/12/2025 UA/M W/RFL X CULTU RE, ROUTI NE glucose Negati ve negati ve Not Available [facility] ([facility]) [address] [facility], [place], [address], 02/15/2025 12:05:59 02/13/20 25 02/12/2025 UA/M W/RFL X CULTU RE, ROUTI NE ketones Negati ve negati ve Not Available [facility] ([facility]) [address] [facility], [place], [address], 02/15/2025 12:05:59 02/13/20 25 02/12/2025 UA/M W/RFL X CULTU RE, ROUTI NE occult blood Negati ve negati ve Not Available [facility] ([facility]) [address] [place], [address], 02/15/2025 12:05:59 02/13/20 25 02/12/2025 UA/M W/RFL X CULTU RE, ROUTI NE bilirubin Negati ve negati ve Not Available [facility] ([facility]) [address] [place], [address], 02/15/2025 12:05:59 02/13/20 25 02/12/2025 UA/M W/RFL X CULTU RE, ROUTI NE urobilinogen ,semi-qn 0.2 mg/dL 0.2-1. 0 normal Not Available [facility] ([facility]) [address] [facility], [place], [address], 02/15/2025 12:05:59 02/13/20 25 02/12/2025 UA/M W/RFL X CULTU RE, ROUTI NE nitrite, urine Negati ve negati ve Not Available [facility] ([facility]) [address] [facility], [place], [address], 02/15/2025 12:05:59 02/13/20 25 02/12/2025 UA/M W/RFL X CULTU RE, ROUTI NE microscopic examination Commen t Micro scopi c follo ws if indic ated. Not Available [facility] ([facility]) [address] [facility], [place], [address], 02/15/2025 12:05:59 02/13/20 25 02/12/2025 UA/M W/RFL X CULTU RE, ROUTI NE microscopic examination See below: Micro scopi c was indic ated and was perfo rmed. Not Available [facility] ([facility]) [address] [facility], [place], [address], 02/15/2025 12:05:59 02/13/20 25 02/13/2025 UA/M W/RFL X CULTU RE, ROUTI NE WBC None seen /hpf 0 - 5 Not Available [facility] ([facility]) [address] [facility], [place], [address], 02/15/2025 12:05:59 02/13/20 25 02/13/2025 UA/M W/RFL X CULTU RE, ROUTI NE RBC 0-2 /hpf 0 - 2 Not Available [facility] ([facility]) [address] [facility], [place], [address], 02/15/2025 12:05:59 02/13/20 25 02/13/2025 UA/M W/RFL X CULTU RE, ROUTI NE epithelial cells (non renal) None seen /hpf 0 - 10 Not Available [facility] ([facility]) [address], [place], [address], 02/15/2025 12:05:59 02/13/20 25 02/13/2025 UA/M W/RFL X CULTU RE ROUTI NE epithelial cells (renal) [employer] Not Available [facility] ([facility]) [address] [facility], [place], [address], 02/15/2025 12:05:59 02/13/20 25 02/13/2025 UA/M W/RFL X CULTU RE, ROUTI NE casts None seen /lpf none seen Not Available [facility] ([facility]) [address] [facility], [place], [address], 02/15/2025 12:05:59 02/13/20 25 02/13/2025 UA/M W/RFL X CULTU RE ROUTI NE cast type [employer] Not Available [facility] ([facility]) [address] [facility], [place], [address], 02/15/2025 12:05:59 02/13/20 25 02/13/2025 UA/M W/RFL X CULTU RE, ROUTI NE crystals [employer] Not Available [facility] ([facility]) [address] [facility], [place], [address], 02/15/2025 12:05:59 02/13/20 25 02/13/2025 UA/M W/RFL X CULTU RE, ROUTI NE crystal type [employer] Not Available [facility] ([facility]) [address] [facility], [place], [address], 02/15/2025 12:05:59 02/13/20 25 02/13/2025 UA/M W/RFL X CULTU RE, ROUTI NE mucus threads [employer] Not Available [facility] ([facility]) [address] [facility], [place], [address], 02/15/2025 12:05:59 02/13/20 25 02/13/2025 UA/M W/RFL X CULTU RE, ROUTI NE bacteria Modera te none seen/f ew abnormal Not Available [facility] ([facility]) [address] [facility], [place], [address], 02/15/2025 12:05:59 02/13/20 25 02/13/2025 UA/M W/RFL X CULTU RE, ROUTI NE yeast [employer] Not Available [facility] ([facility]) [address] [facility], [place], [address], 02/15/2025 12:05:59 02/13/20 25 02/13/2025 UA/M W/RFL X CULTU RE, ROUTI NE trichomonas [employer] Not Available [facility] ([facility]) [address] [facility], [place], [address], 02/15/2025 12:05:59 02/13/20 25 02/13/2025 UA/M W/RFL X CULTU RE, ROUTI NE comment [employer] Not Available [facility] ([facility]) [address] [facility], [place], [address], 02/15/2025 12:05:59 02/13/20 25 02/13/2025 UA/M W/RFL X CULTU RE, ROUTI NE urinalysis reflex Commen t This speci men has refle xed to a Urine Cultu re. Not Available [facility] ([facility]) [address] [facility], [place], [address], 02/15/2025 12:05:59 02/13/20 25 02/15/2025 UA/M W/RFL X CULTU RE, ROUTI NE urine culture, routine Final report abnormal Not Available [facility] ([facility]) [address] [facility], [place], [address], 02/15/2025 12:05:59 02/13/20 25 02/15/2025 UA/M W/RFL [...] rins, clind amyci n, and trime thopr im-austin lfame thoxa zole are not effec tive clini pily . (CLSI , M100- S26, 2016) Great er than 100,0 00 colon y formi ng units per mL Not Available [facility] ([facility]) [address] [facility], [place], [address], 02/15/2025 12:05:59 02/13/2002/15/2025 UA/M W/RFL X CULTU RE, ROUTI NE [...] R Vanco mycin S Not Available [facility] ([facility]) [address] [facility], [place], [address], 02/15/2025 12:05:59 02/18/2002/17/2025 fecal occul t blood , immun oassa y, stool RESULT positi ve Not Available In-Office Order Internal Use Only DO Not Attach Compendium DO Not Attach Compendium, Do Not Delete/merge, [id number] 02/11/2025 12:49:07 03/09/2003/09/2025 fecal occul t blood , immun oassa y, stool RESULT negati ve Not Available In-Office Order Internal Use Only DO Not Attach Compendium DO Not Attach Compendium, Do Not Delete/merge, [id number] 03/04/2025 08:28:09 12/09/19 25 12/07/2024 XR, abdom en No observ ation record ed. [facility] [place] [address] [facility] [address], [place], [address], 12/14/2024 13:59:27 01/27/2001/23/2025 US, abdom en, limit ed US RUQ [...] repres enting hepati c steato sis. WSN: [id number] Orderi ng Physic gasper: Reagan Urbano Dictat ed By: Buster Bui MD Dictat ed Date/T lake: 9:08 am Review ed By: Buster Bui MD Signed By: Buster Bui MD Signed Date/T lake: 9:08 am Transc ribed By: ISELA Transc ribed Date/T lake: 8:33 am Patien t Class: Outpat tamikont [facility] ([facility]) [address], [place], [address], 02/01/2025 10:40:34 02/14/2002/11/2025 XR, chest , 2 view No observ ation record ed. [facility] [place] [address], [place], [address], 02/17/2025 13:17:41 03/05/2003/05/2025 CT, abdom en + pelvi s, w/ [...] mGy*cm . COMPAR TRISTEN: None. FINDIN GS: Machine Milker View Findin gs, Lines and Tubes: None. [...] of L5-S1 with juan listhe sis and case consultant ior decomp ressio n. Modera te chroni c appear ing compre ssion deform ity of L2. 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 IMPRES ELSA: No acute abnorm ality within the abdome n or pelvis . WSN: [id number] Orderi ng Physic gasper: Reagan Urbano ie Dictat ed By: Dariusz Calix MD Dictat ed Date/T lake: 9:31 pm Review ed By: Vidhya dennis MD, Dariusz Robles Signed By: Dariusz Calix MD Signed Date/T lake: 9:31 pm Transc ribed By: CSB Transc ribed Date/T lake: 9:21 pm Patien t Class: Outpat ient [id number] [facility] ([facility]) [address] , [place], [address], 03/18/2025 17:00:00 03/10/20 25 02/22/2025 trans thora cic echoc ardio gram (TTE) compl ete (cont rast/ bubbl e/3D PRN) No observ ation record ed. [facility] [address] [place], [address], 03/10/2025 10:11:23 03/11/2002/22/2025 US, echoc ardio gram No observ ation record ed. [facility] [address] [facility] [address], [place], [address], 03/12/2025 07:35:33 03/25/20 ECG 12-le ad No observ ation record ed. [facility] [address], [place], [address], 03/25/2025 18:24:07 Result Notes Documentation Provider Name and Address Organization Details Recorded Time Ct, Abdomen + Pelvis, W/ Contrast : CT Abd/Pelvis W/ IV + Oral Contrast Reason: ABNORMAL WEIGHT LOSS R63.4; Clinical Question(s): Other: TECHNIQUE: Spiral CT through the abdomen and pelvis with IV contrast formatted in 3 planes. 100 cc of Isovue 300 100cc vials was administered intravenously. This study was performed with oral contrast. Weight-based protocol using automatic tube modulation was used to optimize exposure parameters. CTDIvol Body: 15.17 mGy, DLP Body: 815 mGy*cm. COMPARISON: None. FINDINGS: Machine Milker View Findings, Lines and Tubes: None. Visualized Chest: Mild dependent atelectasis and/or scarring. No pleural effusion. The heart is normal in size. No pericardial effusion. Diaphragm: Normal. Liver: Normal morphology and attenuation. No suspicious lesion. Gallbladder: No CT evidence of gallbladder pathology. Bile ducts: No biliary ductal dilation. Spleen: Normal. Pancreas: Normal. Adrenal glands: Normal. Kidneys and ureters: Renal cortical thinning. No hydronephrosis, stones, or suspicious masses. Bladder: Normal. Reproductive organs: Prostatomegaly measuring 5 cm in transverse diameter. Stomach, small bowel, and large bowel: No abnormal bowel wall thickening or distention. Colonic diverticulosis without evidence of acute diverticulitis. Appendix: Normal. Peritoneum and retroperitoneum: No ascites or pneumoperitoneum. No omental or mesenteric lesions. Lymph nodes: No enlarged lymph nodes. Blood vessels: Severe atherosclerotic vascular calcification but no aneurysm. No evidence of venous thrombosis. Abdominal and pelvic wall: Small fat-containing right inguinal hernia. Bones: Status post fusion of L5-S1 with anterolisthesis and posterior decompression. Moderate chronic appearing compression deformity of L2. Old right rib fracture. IMPRESSION: No acute abnormality within the abdomen or pelvis. WSN: [id number] Ordering Physician: Madeleine Jones Dictated By: Jon Medina MD Dictated Date/Time: 03/05/25 9:31 pm Reviewed By: Jon Medina MD Signed By: Jon Medina MD Signed Date/Time: 03/05/25 9:31 pm Transcribed By: ISELA Transcribed Date/Time: 03/05/25 9:21 pm Patient Class: Outpatient BRIANNE Eugene [facility] 03/18/2025 17:00:00 Problems Name Problem SNOMED Code Status Onset Date Resolution Date Notes Provider Name and Address Organization Details Recorded Time Dizzines s 355927843 Completed 12/03/2016 BRIANNE Eugene [facility] 7 09:34:04 Disorder of vision 58206783 Completed 12/03/2016 Aracely melendez 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 6 09:45:40 Carotid artery stenosis 05751999 Active Emigdio Casas PA-C [address] [facility] [address] [facility] [place], [address] [place] [address] 6 10:19:45 Eruption [id number] Completed 12/03/2016 BRIANNE Eugene [facility] 7 09:33:51 General examinat ion of patient Completed 200812/31/2013 RECORDED 01/18/20 09 3:07PM BY RUBEN MORALES MA, ANNOTATI ON/ADDEN DUM Emigdio Casas PA-C [address] [place], [address], [facility] 6 10:19:45 General examinat ion of patient Completed 200801/01/2014 RECORDED 01/18/20 09 3:07PM BY RUBEN MORALES MA, BIRDIEATI ON/ADDEN DUM Emigdio Casas PA-C [address], [place], [address], [facility] 6 10:19:45 General examinat ion of patient Completed 200812/08/2013 RECORDED 01/18/20 09 3:07PM BY RUBEN MORALES MA, AMARJIT ON/ADDEN DUM Emigdio Casas PA-C [address] [facility] [address], [place], [address], [facility] 6 10:19:45 Influenz a vaccine needed [id number] 06 Completed 201012/31/2013 DATE: 04/30/20 11; RECORDED 08/22/19 13 10:53AM BY AMARJIT EUGENE ON/ADDEN DUM Emigdio Casas PA-C [address] [facility] [address], [place], [address], [facility] 6 10:19:45 Influenz a vaccine needed [id number] 06 Completed 201001/01/2014 DATE: 04/30/20 11; RECORDED 08/22/19 13 10:53AM BY AMARJIT EUGENE ON/ADDEN DUM Emigdio Casas PA-C [address] [facility] [address], [place], [address], [facility] 6 10:19:45 Influenz a vaccine needed [id number] 06 Completed 201012/08/2013 DATE: 04/30/20 11; RECORDED 08/22/19 13 10:53AM BY AMARJIT EUGENE ON/ADDEN DUM Emigdio Casas PA-C [address] [facility] [address], [place], [address], [facility] 6 10:19:45 Screenin g for malignan t neoplasm of colon Completed 201212/31/2013 RECORDED 08/22/19 13 10:53AM BY AMARJIT EUGENE ON/ADDEN DUM BRIANNE Eugene, [facility] 7 09:33:55 Contact dermatit is [id number] Completed 201212/31/2013 RECORDED 08/22/19 13 10:55AM BY AMARJIT EUGENE ON/ADDEN DUM BRIANNE Eugene, [facility] 7 09:34:01 Eruption [id number] Completed 201212/31/2013 RECORDED 08/22/19 13 10:53AM BY AMARJIT EUGENE ON/ADDEN DUM BRIANNE Eugene, [facility] 7 09:33:51 Screenin g for malignan t neoplasm of colon Completed 201201/01/2014 RECORDED 08/22/19 13 10:53AM BY AMARJIT EUGENE ON/ADDEN DUM BRIANNE Eugene, [facility] 7 09:33:55 Contact dermatit is [id number] Completed 201201/01/2014 RECORDED 08/22/19 13 10:55AM BY AMARJIT EUGENE ON/ADDEN DUM BRIANNE Eugene, [facility] 7 09:34:01 Eruption [id number] Completed 201201/01/2014 RECORDED 08/22/19 13 10:53AM BY AMARJIT EUGENE ON/ADDEN DUM BRIANNE Eugene, [facility] 7 09:33:51 Contact dermatit is [id number] Completed 201212/08/2013 RECORDED 08/22/19 13 10:55AM BY AMARJIT EUGENE ON/ADDEN DUM BRIANNE Eugene, [facility] 7 09:34:01 Eruption [id number] Completed 201212/08/2013 RECORDED 08/22/19 13 10:53AM BY AMARJIT EUGENE ON/ADDEN DUM Yuki Sanches MA null, [facility] 7 09:33:51 Rhabdomy olysis [id number] Completed 201212/08/2013 RECORDED 08/22/19 13 10:53AM BY AMARJIT EUGENE ON/ADDEN DUM Aracely melendez null, [facility] 9 10:22:46 Adult health examinat ion Completed 201212/31/2013 IMPRESSI ON: EXAM TODAY, DOING GREAT, IS ACTIVE SCREENIN G UTD, WILL GET COLONOSC OPY; RECORDED 02/05/20 13 10:37AM BY AMARJIT EUGENE ON/ADDEN DUM BRIANNE Eugene, [facility] 7 09:45:31 Adult health examinat ion Completed 201201/01/2014 IMPRESSI ON: EXAM TODAY, DOING GREAT, IS ACTIVE SCREENIN G UTD, WILL GET COLONOSC OPY; RECORDED 02/05/20 13 10:37AM BY AMARJIT EUGENE ON/ADDEN DUM BRIANNE Eugene, [facility] 7 09:45:31 Adult health examinat ion Completed 201212/08/2013 IMPRESSI ON: EXAM TODAY, DOING GREAT, IS ACTIVE SCREENIN G UTD, WILL GET COLONOSC OPY; RECORDED 02/05/20 13 10:37AM BY AMARJIT EUGENE ON/ADD DUM BRIANNE Eugene, [facility] 7 09:45:31 Active or passive immuniza tion Completed 201312/31/2013 RECORDED 06/29/19 14 9:09AM BY ARACELY Najera MD, OFFICE VISIT Emigdio Casas PA-C [address] [address], [place], [address], [facility] 6 10:19:45 Psychose xual dysfunct ion associat ed with inhibite d libido [id number] Completed 201312/31/2013 RECORDED 06/29/19 14 8:37AM BY AMARJIT EUGENE ON/ADDEN DUM Emigdio ELIAS-C [address] [facility] [address], [place], [address], [facility] [place] 6 10:19:45 Active or passive immuniza tion Completed 201301/01/2014 RECORDED 06/29/19 14 9:09AM BY ARACELY Najera MD, OFFICE VISIT Emigdio EMERSONC [address] [facility] [address], [place], [address], [facility] [place] [place] 6 10:19:45 Psychose xual dysfunct ion associat ed with inhibite d libido [id number] Completed 201301/01/2014 RECORDED 06/29/19 14 8:37AM BY AMARJIT EUGENE ON/ADDEN DUM Emigdio ELIAS-C [address] [facility] [address], [place], [address], [facility] [place] 6 10:19:45 Active or passive immuniza tion Completed 201312/08/2013 RECORDED 06/29/19 14 9:09AM BY ARACELY Najera MD, OFFICE VISIT Emigdio Casas PA-C [address] [facility] [address], [place], [address], [facility] [place] 6 10:19:45 Psychose xual dysfunct ion associat ed with inhibite d libido 246454286 Completed 201312/08/2013 RECORDED 06/29/19 14 8:37AM BY AMARJIT EUGENE ON/ADDEN DUM Emigdio EMERSONC [address] [facility] [address], [place], [address], [facility] [place] 6 10:19:45 Screenin g for malignan t neoplasm of colon Completed 201312/08/2013 RECORDED 07/28/19 14 8:05AM BY AMARJIT EUGENE ON/ADDEN DUM Yuki Sanches MA null, 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 WILL TRY TO CHANGE TO TEMAZAPA M. SEE IF CAN GET BY THE INSURANC E ISSUES; RECORDED 08/18/19 14 8:10AM BY AMARJIT JEAN/GAURAV Casas PA-C [address], [place], [address], [facility] [place] 6 10:19:45 Measurem ent finding Completed 201312/31/2013 IMPRESSI ON: HIGHEST WAS 100, THEN 550, HAS NOT BEEN CHECKED IN MONTHS, NOT ON ANY CHOLESTE ROL MEDS, CHECK CPK; RECORDED 08/18/19 14 8:10AM BY AMARJIT JEAN/GAURAV EMERSONC [address], [place], [address], [facility] [place] [place] 6 10:19:45 Abnormal involunt chucky movement [id number] Completed 201312/31/2013 IMPRESSI ON: EMG THIS WEEK; RECORDED 08/18/19 14 8:10AM BY BIRDIE JEANATI ON/ADDEN DUM Emigdio Casas PA-C [address] [facility] [address], [place], [address], [facility] [place] 6 10:19:45 Malaise and fatigue 881418452 Completed 201312/31/2013 RESOLVED DATE: 08/18/19 14; RECORDED 08/18/19 14 8:10AM BY BIRDIE JEANATI ON/ADDEN DUM Emigdio Casas PA-C [address] [facility] [address], [place], [address], [facility] [place] 6 10:19:45 Pure hypercho lesterol emia 243718685 Completed 201312/31/2013 RECORDED 08/18/19 14 8:10AM BY AMARJIT JEAN ON/ADDEN DUM Emigdio Casas PA-C [address] [facility] [address], [place], [address], [facility] [place] 6 10:19:45 Insomnia 906215269 Completed 201312/31/2013 IMPRESSI ON: DOWN TO ONE TEMAZEPA M FOR SLEEP; RECORDED 08/18/19 14 8:10AM BY AMARJIT JEAN ON/ADDEN DUM Wendy Key MA null, [facility] 8 08:33:08 Fibromyo sitis 03956971 Completed 201312/31/2013 RECORDED 08/18/19 14 8:10AM BY BIRDIE JEANATI ON/ADDEN DUM Emigdio Tellezden PA-C [address] [facility] [address], [place], [address], [facility] [place] 6 10:19:45 Immuniza tion refused Completed 201312/31/2013 RECORDED 08/18/19 14 8:10AM BY AMARJIT JEAN ON/GAURAV Casas PA-C [address], [place], [address], [facility] [place] 6 10:19:45 Disorder of skin and/or subcutan eous tissue 07034098 Completed 201312/31/2013 IMPRESSI ON: RIGHT LATERAL THIGH REFER TO DERM FOR EVAL, HE WILL SET UP; RECORDED 08/18/19 14 8:10AM BY AMARJIT JEAN ON/GAURAV Beal Casas PA-C [address], [place], [address], [facility] [place] [place] 6 10:19:45 Dermatop hytosis of the perianal area Completed 201312/31/2013 RECORDED 08/18/19 14 8:10AM BY AMARJIT JEAN ON/GAURAV Casas PA-C [address], [place], [address], [facility] [place] [place] 6 10:19:45 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 WILL TRY TO CHANGE TO TEMAZAPA M. [facility]; RECORDED 08/18/19 14 8:10AM BY AMARJIT JEAN ON/ADDEN DUM Emigdio Casas PA-C [address], [place], [address], [facility] [place] 6 10:19:45 Measurem ent finding Completed 201301/01/2014 IMPRESSI ON: HIGHEST WAS 100, THEN 550, HAS NOT BEEN CHECKED IN MONTHS, NOT ON ANY CHOLESTE ROL MEDS, CHECK CPK; RECORDED 08/18/19 14 8:10AM BY AMARJIT JEAN ON/ADDEN DUM Emigdio Casas PA-C [address], [place], [address], [facility] [place] [place] 6 10:19:45 Abnormal involunt chucky movement 392520240 Completed 201301/01/2014 IMPRESSI ON: EMG THIS WEEK; RECORDED 08/18/19 14 8:10AM BY AMARJIT JEAN ON/ADDEN DUM Emigdio Casas PA-C [address], [place], [address], [facility] [place] 6 10:19:45 Malaise and fatigue 867554640 Completed 201301/01/2014 RESOLVED DATE: 08/18/19 14; RECORDED 08/18/19 14 8:10AM BY AMARJIT JEAN ON/ADDEN DUM Emigdio Casas PA-C [address], [place], [address], [facility] [place] 6 10:19:45 Pure hypercho lesterol emia 237172164 Completed 201301/01/2014 RECORDED 08/18/19 14 8:10AM BY AMARJIT JEAN ON/ADDEN DUM Emigdio Casas PA-C [address], [place], [address], [facility] [place] [place] 6 10:19:45 Insomnia 096471436 Completed 201301/01/2014 IMPRESSI ON: DOWN TO ONE TEMAZEPA M FOR SLEEP; RECORDED 08/18/19 14 8:10AM BY AMARJIT JEAN ON/ADDEN DUM Wendy Key MA null, [facility] 8 08:33:08 Fibromyo sitis 77212337 Completed 201301/01/2014 RECORDED 08/18/19 14 8:10AM BY AMARJIT JEAN ON/ADDEN DUM Emigdio Casas PA-C [address] [facility] [address], [place], [address], [facility] [place] 6 10:19:45 Immuniza tion refused Completed 201301/01/2014 RECORDED 08/18/19 14 8:10AM BY AMARJIT JEAN ON/ADDEN DUM Emigdio Casas PA-C [address] [facility] [address], [place], [address], [facility] [place] [place] 6 10:19:45 Disorder of skin and/or subcutan eous tissue 11255646 Completed 201301/01/2014 IMPRESSI ON: RIGHT LATERAL THIGH REFER TO DERM FOR EVAL, HE WILL SET UP; RECORDED 08/18/19 14 8:10AM BY AMARJIT JEAN ON/ADDEN DUM Emigdio Casas PA-C [address], [place], [address], [facility] [place] 6 10:19:45 Dermatop hytosis of the perianal area Completed 201301/01/2014 RECORDED 08/18/19 14 8:10AM BY AMARJTI JEAN ON/ADDEN DUM Emigdio Casas PA-C [address] [facility] [address], [place], [address], [facility] [place] 6 10:19:45 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 WILL TRY TO CHANGE TO TEMAZAPA M. SEE IF CAN GET BY THE INSURANC E ISSUES; RECORDED 08/18/19 14 8:10AM BY AMARJIT JEAN/GAURAV Casas PA-C [address] [facility] [address], [facility] [place], [address], [facility] [place] 6 10:19:45 Measurem ent finding Completed 201312/08/2013 IMPRESSI ON: HIGHEST WAS 100, THEN 550, HAS NOT BEEN CHECKED IN MONTHS, NOT ON ANY CHOLESTE ROL MEDS, CHECK CPK; RECORDED 08/18/19 14 8:10AM BY AMARJIT JEAN/GAURAV Casas PA-C [address] [facility] [address], [facility] [place] [place], [address], [facility] [place] 6 10:19:45 Abnormal involunt chucky movement 504613177 Completed 201312/08/2013 IMPRESSI ON: EMG THIS WEEK; RECORDED 08/18/19 14 8:10AM BY BIRDIE JEANATI ON/ADDEN DUM Emigdio Tellezden PA-C [address], [place], [address], [facility] [place] [place] 6 10:19:45 Malaise and fatigue 207501702 Completed 201312/08/2013 RESOLVED DATE: 08/18/19 14; RECORDED 08/18/19 14 8:10AM BY AMARJIT JEAN ON/ADDEN DUM Emigdio Tellezden PA-C [address] [facility] [address], [place], [address], [facility] [place] 6 10:19:45 Pure hypercho lesterol emia 903079574 Completed 201312/08/2013 RECORDED 08/18/19 14 8:10AM BY BIRDIE JEANATI ON/ADDEN DUM Emigdio Tellezden PA-C [address] [facility] [address], [place], [address], [facility] 6 10:19:45 Insomnia 789654128 Completed 201312/08/2013 IMPRESSI ON: DOWN TO ONE TEMAZEPA M FOR SLEEP; RECORDED 08/18/19 14 8:10AM BY AMARJIT JEAN ON/ADDEN DUM [facility] 8 08:33:08 Fibromyo sitis 89105179 Completed 201312/08/2013 RECORDED 08/18/19 14 8:10AM BY BIRDIE JEANATI ON/ADDEN DUM Emigdio Tellezden PA-C [address] [facility] [address], [place], [address], [facility] [place] [place] 6 10:19:45 Immuniza tion refused Completed 201312/08/2013 RECORDED 08/18/19 14 8:10AM BY BIRDIE JEANATI ON/ADDEN DUM Emigdio Casas PA-C [address] [facility] [address], [place], [address], [facility] [place] 6 10:19:45 History of clinical finding in subject [id number] Completed 201312/03/2016 RECORDED 08/18/19 14 8:11AM BY NATALIE PATINO I, OFFICE VISIT BRIANNE Eugene, [facility] 7 09:34:07 Disorder of skin and/or subcutan eous tissue 47702821 Completed 201312/08/2013 IMPRESSI ON: RIGHT LATERAL THIGH REFER TO DERM FOR EVAL, HE WILL SET UP; RECORDED 08/18/19 14 8:10AM BY BIRDIE JEANATI ON/ADDEN DUM Emigdio ELIAS-C [address], [place], [address], [facility] [place] [place] 6 10:19:45 Dermatop hytosis of the perianal area Completed 201312/08/2013 RECORDED 08/18/19 14 8:10AM BY BIRDIE JEANATI ON/ADDEN DUM Emigdio Casas PA-C [address], [facility] [place] [place], [address], [facility] [place] 6 10:19:45 Vitamin D deficien cy 05377136 Completed 201312/08/2013 RECORDED 08/18/19 14 8:10AM BY BIRDIE JEANATI ON/ADDEN DUM BRIANNE Varela, [facility] 8 08:33:24 Adult health examinat ion Completed 201306/04/2016 IMPRESSI ON: PT IS DOING WELL, ACTIVE, EATS WELL; RECORDED 11/13/19 14 9:23AM BY ARACELY Najera MD, OFFICE VISIT BRIANNE Eugene, [facility] 7 09:45:31 Screenin g for malignan t neoplasm of colon Completed 201312/03/2016 RECORDED 11/13/19 14 1:55PM BY DARY MICHAEL, HISTORIC AL SUMMARY Yuki Sanches, MA null, [facility] 7 09:33:55 Overweig ht [id number] Completed 201312/30/2017 RECORDED 11/13/19 14 8:52AM BY RUBEN MORALES MA, OFFICE VISIT BRIANNE Varela, [facility] 8 08:33:12 Degenera tion of interver tebral disc Completed 201312/03/2016 RECORDED 11/13/19 14 8:44AM BY RUBEN MORALES MA, OFFICE VISIT BRIANNE Eugene [facility] 7 09:34:10 Contact dermatit is 55568557 Completed 201312/03/2016 IMPRESSI ON: ARMS TX BELOW; RECORDED 11/13/19 14 8:44AM BY RUBEN MORALES MA, OFFICE VISIT BRIANNE Eugene, [facility] 7 09:34:01 [facility] hyperten elsa 57354068 Active 2013 BRIANNE Varela [facility] 8 08:33:38 Hyperlip idemia 25690807 Completed 201312/11/2018 Aracely paul [facility] 9 10:22:52 Insomnia 166548976 Active 2013 BRIANNE Varela, [facility] 8 08:33:08 Tobacco user 290671937 Completed 201312/08/2015 RECORDED 11/13/19 14 8:56AM BY RUBEN MORALES MA, OFFICE VISIT BRIANNE Pleitez [facility] 6 08:54:33 Rhabdomy olysis 204300369 Completed 201312/11/2018 Aracely paul [facility] 9 10:22:46 Vitamin D deficien cy 41533478 Active 2013 Wendy Key MA null, [facility] 8 08:33:24 Ex-smoke r 4975692 Active 2015 Ruben jo MA null, [facility] 6 08:54:38 Hyperten elsa monitori ng status 896026828 Completed 202108/21/2023 disenrol led MADELEINE JONES MD [address], [place], [address], [facility] 4 09:09:40 Lumbar radiculo jaja 217277148 Active 2022 MADELEINE JONES MD [address], [place], [address], [facility] 3 12:43:19 Heart murmur 35207060 Active 2023 MADELEINE JONES MD [address], [place], [address], [facility] 4 14:54:21 Foot-asif p 0849858 Active 2023 MADELEINE JONES MD [address], [place], [address], [facility] 4 16:27:46 Compress ion fracture of L2 [id number] 594617 Active 2024 Devon Maldonado MD [address], [place], [address], [facility] 5 17:24:07 Problem Notes None recorded. Procedures Surgical History Date Name Laterality Status Provider Name and Address Organization Details Recorded Time 02/13/20 25 FOBT completed Ruben israel MA [facility] 02/12/2025 16:27:11 12/26/19 25 injection of sacroiliac joint completed Jaky Flores [facility] 12/25/2024 10:43:47 08/25/19 25 Advanced Care Planning completed MADELEINE JONES MD [address] [address], [place], [address], [facility] 08/24/2024 09:39:51 08/22/19 24 Advanced Care Planning completed Sun Callejas [facility] 08/23/2023 10:18:50 06/20/19 24 lumbar spinal fusion completed Jaky Flores [facility] 06/20/2023 13:52:48 06/20/19 24 decompression of lumbar spine completed Jaky Flores [facility] 06/20/2023 13:52:57 09/26/19 23 laminectomy completed Jaky Flores [facility] 09/25/2022 12:48:32 06/22/19 21 Six-Item Cognitive Test completed Charo Morgan MA [facility] 06/22/2020 12:56:05 01/08/20 20 injection completed Stephanie Dover [facility] 01/15/2020 15:21:45 06/11/19 20 Mini-Cog Test completed Yuki Sanches MA [facility] 06/11/2019 09:03:24 06/09/19 19 Mini-Cog Test completed Yuki Sanches MA [facility] 06/09/2018 10:10:59 06/06/19 18 Fall Risk Assessment completed Yuki Sanches MA [facility] 06/06/2017 08:42:17 06/06/19 18 Mini-Cog Test completed Yuki Sanches MA [facility] 06/06/2017 08:42:47 06/04/19 17 Fall Risk Assessment completed Yuki Sanches MA [facility] 06/04/2016 09:49:43 06/04/19 17 Mini-Cog Test completed Yuki Sanches MA [facility] 06/04/2016 09:49:04 06/04/19 17 Advanced Care Planning completed Aracely Jelly lockwood [facility] 06/04/2016 10:21:57 06/03/19 16 Fall Risk Assessment completed Yuki Sanches MA [facility] 06/03/2015 09:06:29 06/03/19 16 Mini-Cog Test completed Yuki Sanches MA [facility] 06/03/2015 09:07:31 07/29/19 14 Colonoscopy completed Lynne Rachel [facility] 01/23/2022 15:48:21 Imaging Results None recorded. Procedure Notes None recorded. Medical Equipment None Reported. Allergies Allergen ID Allergen Name Allergen Category Reaction Reaction Severity Criticality Documentation Date Start Date Code Code System Note Provider Name and Address Organization Details Recorded Time 1213 Product containin g angiotens in-conver ting enzyme inhibitor (product) medicatio n myalgias (muscle pain) Not available Not available 12/08/20132013 75516 009 SNOMED MUSCL ES SPASM S BRIANNE Pleitez [facility] 6 08:53:48 1214 Lipitor medicatio n other Not available Not available 12/08/20132013 20393 5 RxNorm RHABD OMYOL YSIS BRIANNE Pleitez [facility] 6 08:53:53 24461 temazepam medicatio n other Not available Not available 12/08/2015 33475 RxNorm night smith BRIANNE Pleitez [facility] 6 08:58:04 65825 Repatha medicatio n hives Not available [facility] 12/07/2024 58594 96 RxNorm BRIANNE Eugene [facility] 5 09:50:54 Medications Name Sig Start Date [...] 09/30/19 08 3:55PM BY CORDELIA Bryant NP, AMARJIT ON/GAURAV HU; Not Available Not Available Not Available sulfameth [...] REFILL REQUEST; THIS ORDER DISCONTI NUED PER [facility]. Not Available Not Available Not Available [...] 10/08 completed RECORDED 12/24/19 11 4:00PM BY BRIANNE UP, MEDICATI ON AUTO-DAYNA CTIVATIO N; Not [...] height Body mass index (BMI) Body weight Oxygen saturation Heart rate Body temperature Systolic And Diastolic Provider Name and Address Organization Details Last Updated DateTime 5 175.26 cm 29 kg/m2 64444.5 g 98 % 68 /min 98.3 [degF] 114/66 mm[Hg] Yuki Sanches MA [facility] 5 09:24:35 Date Recorded Body height Body mass index (BMI) Body weight Oxygen saturation Heart rate Body temperature Systolic And Diastolic Provider Name and Address Organization Details Last Updated DateTime 5 175.26 cm 28.2 kg/m2 14390.1 4 g 97 % 63 /min 97.5 [degF] 125/73 mm[Hg] Yuki Sanches MA [facility] [place] 5 09:50:06 Date Recorded Body height Body mass index (BMI) Body weight Heart rate Oxygen saturation Body temperature Systolic And Diastolic Provider Name and Address Organization Details Last Updated DateTime 5 175.26 cm 27 kg/m2 13807.4 g 64 /min 96 % 97.9 [degF] 96/57 mm[Hg] Sudha Betts MA [facility] 5 11:21:42 Date Recorded Body height Body mass index (BMI) Body weight Oxygen saturation Heart rate Body temperature Systolic And Diastolic Provider Name and Address Organization Details Last Updated DateTime 5 175.26 cm 26.9 kg/m2 51975.9 1 g 98 % 77 /min 98.2 [degF] 124/72 mm[Hg] Yuki Sanches MA [facility] 5 13:33:32 Social History Question Answer Notes LastModified by Organizat ion Details LastModified Time Tobacco Smoking Status Former Smoker Yuki Sanches MA [facility] 05/13/2014 08:48:14 Do You Have An [...] COVID-19 While That Person Was Ill? No [email or web address] Information not available 12/02/2019 Have You Been To An Area Known To Be High Risk For COVID-19? No [email or web address] Information not available 12/02/2019 What Type Of Diet Are You Following? REGULAR [email or web address] Information not available 05/13/2014 Which Illicit Or Recreational Drugs Have You Used? None Information not available 12/08/2015 When Did You Quit Smoking? 18+yearssin celastciluis lopes [email or web address] Information not available 06/23/2021 Live Alone Or [...] [employer] For 4 Years Loaded Bombs [email or web address] Information not available 06/04/2016 Have You Or Anyone In Your Household Had Any Of The Following Symptoms In The Last 14 Days: Sore Throat, Cough, Chills, Body Aches For Unknown Reasons, Shortness Of Breath For Unknown Reasons, Loss Of Smell, Loss Of Taste, Fever At Or Greater Than 100 Degrees Fahrenheit? No [email or web address] Information not available 12/02/2019 Are You Or Anyone In Your Household A Health Care Provider Or Emergency Responder? No [email or web address] Information not available 12/02/2019 To The Best Of Your Knowledge Have You Been In Close Proximity To Any Individual Who Tested Positive For COVID-19? No [email or web address] Information not available 12/02/2019 *AWV ONLY* Are You Presently Prescribed Opioid Medication By PCP Or Specialist? If YES -Provider Assess The Benefit For Other, Non-opioid Pain Therapies Instead, Even If The Patient Does Not Have OUD But Is Possibly At Risk. No [email or web address] Information not available 06/23/2021 Have You Recently Traveled To A COVID-19 High Risk Area Or Gathering In The Last 10 Days? No [email or web address] Information not available 06/22/2020 What Was The Date Of Your Most Recent Tobacco Screening? 08/24/2024 Information not available 08/24/2024 How Many Children Do You Have? 2 [email or web address] Information not available 05/13/2014 What Is Your Current Pack Years? 10-19packye ars [email or web address] Information not available 06/23/2021 Do You Use Protection During Sex? No Information not available 12/08/2015 Seat Belts Used Routinely Yes [email or web address] Information not available 05/13/2014 Are You Sexually Active? Yes Information not available 12/08/2015 Smoke Alarm In Home Yes [email or web address] Information not available 05/13/2014 Are You Passively Exposed To Smoke? No Information no t available 12/08/2015 General Stress Level Medium [email or web address] Information not available 08/24/2024 Do You Use Sunscreen Routinely? Yes Information not available 05/13/2014 How Many Years Have You Smoked Tobacco? 25 [email or web address] Information not available 05/13/2014 Sex: Unknown Functional Status Question Answer Note LastModified by Organizat ion Details LastModified Time What is your level of alcohol consumption? Occasional [email or web address] Information not available 05/13/2014 Do you or have you ever used smokeless tobacco? Never used smokeless tobacco [email or web address] Information not available 06/22/2020 Are you currently employed? No retired Information not available 12/08/2015 Are you able to walk independently without assistance or assistive devices? YESWOREST [email or web address] Information not available 06/23/2021 Are you able to care for yourself independently? 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 Never used electronic cigarettes [email or web address] Information not available 06/22/2020 What is your [...] Recorded Time Tdap 007 completed Not Available [facility] 12/08/2013 13:26:33 pneumococcal polysaccharide PPV23 014 completed Not Available [facility] 12/08/2013 13:26:33 Pneumococcal conjugate PCV 13 015 completed Yuki Sanches MA [facility] 01/08/2022 10:10:56 Td (adult), 2 Lf tetanus toxoid, preservative free, adsorbed 019 completed Yuki Sanches MA null, [facility] 01/08/2022 10:10:56 zoster recombinant 024 cancelled patient objection MADELEINE JONES MD [address] [facility] [address], [place], [address], [facility] [place] [place] 08/22/2023 09:36:05 Influenza, high-dose, trivalent, PF 024 cancelled patient objection MADELEINE JONES MD [address] [facility] [address], [place], [address], [facility] 02/11/2024 11:17:45 Past Encounters Encounter ID Performer Location Encounter Start Date Encounter Closed Date Diagnosis/Indication Diagnosis SNOMED-CT Code Diagnosis ICD10 Code Diagnosis IMO Codes Diagnosis Note autoEComm erce [address] [facility] [place] [address] 10/30/2005 00:00:00 [id number] autoEComm erce [address] [facility] [place] [address] 01/30/2006 00:00:00 [id number] autoEComm erce [address] [facility] [place] [address] 05/07/2006 00:00:00 [id number] autoEComm erce [address] [facility] [place] [address] 08/13/2006 00:00:00 [id number] autoEComm erce [address] [facility] [place] [address] 11/13/2006 00:00:00 [id number] autoEComm erce [address] [facility] [place] [address] 03/20/2007 00:00:00 [id number] autoEComm erce [address] [facility] [place] [address] 04/22/2007 00:00:00 [id number] autoEComm erce [address] [place] [address] 04/23/2007 00:00:00 [id number] [employer] [address],[place] [address] [place] [address] 06/03/2007 00:00:00 [id number] [employer] [address],[place] [address] [place] [address] 09/30/2007 00:00:00 [id number] [employer] [address],[place] [address] [place] [address] 12/02/2007 00:00:00 40814 [employer] [address] [facility] [address],[place] [address] [place] [address] 12/03/2007 00:00:00 [id number] [employer] [address] [facility] [address],[place] [address] [place] [address] 03/30/2008 00:00:00 [id number] [employer] [address] [facility],[place] [address] [place] [address] 07/27/2008 00:00:00 [id number] [employer] [address] [facility],[place] [address] [place] [address] 01/17/2009 00:00:00 [id number] [employer] [address] [facility],[place] [address] [place] [address] 03/29/2009 00:00:00 [id number] [employer] [address] [facility],[place] [address] [place] [address] 10/13/2009 00:00:00 [id number] [employer] [address] [facility],[place] [address] [place] [address] 02/15/2010 00:00:00 75021 [employer] [address],[place] [address] [place] [address] 05/17/2010 00:00:00 [id number] [employer] [address] [facility] [address],[place] [address] [place] [address] 08/23/2010 00:00:00 76817 [employer] [address] [facility],[place] [address] [place] [address] 12/27/2010 00:00:00 70095 [employer] [address] [facility],[place] [address] [place] [address] 04/30/2011 00:00:00 04753 [employer] [address] [facility],[place] [address] [place] [address] 2 09/17/2011 00:00:00 70884 [employer] [address] [facility],[place] [address] [place] [address] 10/10/2011 00:00:00 [id number] [employer] [address] [facility],[place] [address] [place] [address] 2 08/21/2012 00:00:00 [id number] [employer] [address] [facility],[place] [address] [place] [address] 02/04/2013 00:00:00 [id number] [employer] [address] [facility],[place] [address] [place] [address] 2 06/29/2013 00:00:00 37174 [employer] [address] [facility],[place] [address] [place] [address] 2 07/27/2013 00:00:00 [id number] [employer] [address] [facility],[address] [place] [address] 08/17/2013 00:00:00 [id number] [employer] [address] [facility],[place] [address] [place] [address] 11/12/2013 00:00:00 [id number] Aracely olsen MD Main Office [address] [place] [address] 05/13/2014 08:33:49 05/13/2014 09:36:37 Essential hypertension 80388166 pt with some dizziness, it may be due to dehydratio n from hctz, will stop hctz and start amlodipine , check BP at home and if fine return 4 months, ifn ot controlled or problems see me sooner. Dizziness 861935856 EKG unchanged, no MEAL TEMPERER or SOB, not concerning for cardiac, will change BP meds [id number] Aracely olsen MD Main Office [address] [place] [address] 09/15/2014 08:59:34 09/15/2014 10:00:11 Essential hypertension 47045290 BP a bit generous but will not change med in light of possible carotid disease, keep BP up to help with perfusion Dizziness 804923827 with exertion, question of carotid disease on the right with reduced pulse, right eye vision change with exertion, will get US of carotids and pt to start a baby aspirin, pt to limit exertion for now until gets ultrasound , eye and cardiac eval, to ER if any new symptoms or symptroms not resolving, right now if walks, gets symptoms then rests and they resolve, risk factors include htn, high chol (untx due to rhabdo to Lipitor) and hx of smoking. Pt know sot go to ER is any new symptoms or prolonged symptoms, will limit exertion to stay out of symptoms, will start baby asa Disorder of vision 98970181 right eye vision change with 20 minutes of walking, will get crotid Us and pt to get formal dilate deye exam Hypercholesterolemia 28679206 untreated due to hx of rhabdo [id number] Aracely olsen MD Main Office [address] [address] 10/06/2014 11:02:05 11/19/2014 15:18:46 [id number] Aracely olsen MD Main Office [address] [address] 02/03/2015 13:38:25 02/03/2015 14:34:29 Carotid artery stenosis 01331508 pt is doing very well after carotid endarterec emilia, no visual symptoms, better energy, no dizziness Essential hypertension 42371486 BP a bit generous but will not change med in light of possible carotid disease, keep BP up to help with perfusion Hypercholesterolemia 60848754 untreated due to hx of rhabdo Administra tion of pneumococcal vaccine 03123925 [id number] Aracely olsen MD Main Office [address] [address] 06/03/2015 08:53:26 06/03/2015 09:55:05 Hyperlipidemia 70102507 E78.[address] Sanford, had rhabdo with lipitor family level still quite high 05/31/15, I will send /Riley, recent choleterol and I asked pt to cntact him re a plan for treatment, pt also has been eatign poorly over the holidays Essential hypertension 31772033 I10 well controlled , continue meds Carotid ar dayan stenosis 84166501 I65.29 pt is doing very well after carotid endarterec emilia, no visual symptoms, better energy, no dizziness Adult heal th examination 227743949 Z00.00 colonoscop y utd, not eatign well, will get more active. needs to lose soem weight [id number] Emigdio Casas PA-C Main Office [address] [facility] [address] [facility] [place] [address] 08/17/2015 09:24:31 08/17/2015 10:20:27 Eruption 837832038 R21 ? etiology, could be secondary to niacin, but since pt is otherwise tolerating med - agree c cardiology to continue med [id number] Aracely olsen MD Main Office [address] [facility] [address] [place] [address] 12/08/2015 08:46:38 12/08/2015 09:40:50 Essential hypertension 13910396 I10 well controlled continue meds Insomnia 972721060 G47.0 0 disrupted sleep, will try trazodone 50mg, uses and likes it, had nightmares with temazepam Hypercholesterolemia 136 91525 E78.0 on niacin by cardio, will check fasting and pt to set up followup with Dr Sanford and ask him to titrate cholestero l, intoleranc e to statins History of carotid endarterectomy 839956578 Z98.89 doing very well, US just repeated and looked good, LDL goal less than 100 [id number] Aracely olsen MD Main Office [address] [facility] [address] [facility] [place] [address] 06/04/2016 09:33:48 06/04/2016 10:34:32 Adult health examination 293488092 Z00.00 colonoscop y utd, feels well, walking for exercise, negative screening, due for tdap by 03/12, they will check on insurance coverage Advance di rective discussed with patient 062314333 Z71.89 I discussed MOLST and health care proxy form. I gave pt MOLST form and proxy form, pt will fill out, discuss MOLST form with proxy and sign and return to our office Essential hypertension 85947642 I10 Good BP control continue meds Hyperlipidemia 06991386 E78.5 on Niacin, pt to see cardiology who manages this, LDL still up but best it has been does not tolerate statins gets very elevated CPK Carotid ar dayan stenosis 03693817 I65.29 pt is doing very well after carotid endarterec emilia, no visual symptoms, better energy, no dizziness [id number] Aracely olsen MD Main Office [address] [facility] [address] [facility] [place] [address] 12/03/2016 09:29:05 12/03/2016 10:15:43 Hypercholesterolemia 21081346 E78.00 high cholestero l in setting of carotid stenosis and intoleranc e to statins due to hx of rhabdomyal ysis, on increased dose of niacin, cardiology titrating and will restart fish oil and check fasting will send to cardiology Essential hypertension 21625587 I10 Good BP control continue meds Carotid ar dayan stenosis 17261677 I65.29 pt is doing very well after carotid endarterec emilia, no visual symptoms, better energy, no dizziness [id number] Aracely olsen MD Main Office [address] [facility] [address] [facility] [place] [address] 06/06/2017 08:20:40 06/06/2017 09:30:02 Adult health examination 031005526 Z00.00 colonoscop y utd, feels well, walking for exercise, negative screening, due for tdap by 03/12, they will check on insurance coverage Hypercholesterolemia 136 88352 E78.00 high cholestero l in setting of carotid stenosis and intoleranc e to statins due to hx of rhabdomyal ysis, on increased dose of niacin, cardiology titrating and will restart fish oil and check fasting will send to cardiology , will check lipids ansd ask pt to see cardiology (sees Dr Sanford) in f/u Essential hypertension 52817596 I10 Good BP control continue meds Carotid ar dayan stenosis 80706246 I65.29 pt is doing very well after carotid endarterec emilia, on asa 325mg, sees vascular annually, last 12/10 Hyperglycemia 50071996 R 73.9 fasting sugar elevated, he will be called and will get an A1C to look at sugar trend over time [id number] Aracely olsen MD Main Office [address] [facility] [address] [facility] [place] [address] 12/30/2017 08:26:55 12/30/2017 09:33:33 Essential hypertension 94237211 I10 Good BP control continue meds Pain of hip region 78117 002 M25.551 M25.552 definately tight muscles, needs to stretch, offered PT but want to try on own, willg et xray to look for arthritis. Pain in thumb 776190691 M79.644 M79.645 tendonitis golf related, to see hand ortho for cortisone Carotid ar dayan stenosis 85708017 I65.29 pt is doing very well after carotid endarterec emilia, on asa 325mg, sees vascular annually, just saw them Hypercholesterolemia 136 00337 E78.00 high cholestero l in setting of carotid stenosis and intoleranc e to statins due to hx of rhabdomyal ysis, on increased dose of niacin, cardiology titrating and will restart fish oil and check fasting will send to cardiology they want pt to go up to 2grams of niacin, he will try [id number] Araecly olsen MD Main Office [address] [facility] [address] [facility] [place] [address] 06/09/2018 09:27:53 06/09/2018 10:36:13 Adult health examination 198670421 Z00.00 colonoscop y utd, shots today, bugged pt about eating better, losing weight, gained 8lbs Requires a tetanus booster 625211261 Z23 Hyperglycemia 20991111 R 73.9 fasting sugar elevated, he will be called and will get an A1C to look at sugar trend over time Hypercholesterolemia 136 06524 E78.00 pt is on meds, TG still up but better than past, clean up eating Essential hypertension 08276729 I10 Good BP control continue meds [id number] Aracely olsen MD Main Office [address] [facility] [address] [facility] [place] [address] 08/08/2018 09:10:21 08/08/2018 10:23:34 Essential hypertension 99094120 I10 EKG appears normal, BP controlled on current meds. Advised walking or aerobic exercise 4-5 days a week for at least 20 minutes. Advised lower fat diet with aim toward weight loss. Hyperlipidemia 56240844 E78.2 taking meds as noted in HPI, cannot take statin Carotid ar dayan stenosis 28931454 I65.29 surgery done, has surveillan ce Ex-smoker 5306560 Z87.89 1 Family his tory of Cardiovascular disease 883289959 Z82.49 Pt has upcoming cardiology appt, has had a neg stress test in the past but would recommend repeat. [id number] Aracely olsen MD Main Office [address] [facility] [address] [place] [address] 12/11/2018 09:21:38 12/11/2018 10:09:41 Essential hypertension 74788271 I10 Good BP control continue meds Hypercholesterolemia 136 86641 E78.00 pt is on meds, TG still up but better than past, clean up eating pt with elevated CPK in pat so they go gingerly on meds for chol Carotid ar dayan stenosis 16150526 I65.29 pt is doing very well after carotid endarterec emilia, on asa 325mg, sees vascular annually, just saw them Peripheral vascular disease 165852259 I73.9 recetn eval of LE blood flow, requested results, carotids recently checked and seemed fine as per pt [id number] Aracely olsen MD Main Office [address] [facility] [address] [place] [address] 06/11/2019 08:52:36 06/11/2019 10:08:32 Adult health examination 124019625 Z00.00 colonoscop y due, will set up appt with [facility] due to Dee gone, Carotid ar dayan stenosis 20596740 I65.29 pt is doing very well after carotid endarterec emilia, on asa 325mg, sees vascular annually, just saw them in summer Essential hypertension 83081760 I10 Good BP control continue meds Hypercholesterolemia 136 89069 E78.00 on niacin, continue dose Pain in right thumb 1076 832564 870625 M79.644 will see ortho again Screening for malignant neoplasm of colon 221776216 Z12.11 will change to [facility] Peripheral vascular disease 297413345 I73.9 recetn eval of LE blood flow, requested results, carotids recently checked and seemed fine as per pt Feeling irritable 601141 07 R45.4 long talk with pt, past 7-9 months feels short tempered, poor focus, irritable, is looking into seeing someone at [facility] to discuss PTSD, was in , denies depression , sleeping well, alcohol max 3 beers 2 nights a week, then now and then [id number] Aracely olsen MD Main Office [address] [facility] [address] [facility] [place] [address] 12/02/2019 15:46:21 12/02/2019 16:29:41 Essential hypertension 00535054 I10 Good BP control continue meds will sign up pt for remote BP monitoring Carotid ar dayan stenosis 88454944 I65.29 pt is doing very well after carotid endarterec emilia, on asa 325mg, sees vascular annually, just had carotid US, results pending Hypercholesterolemia 136 52855 E78.00 on niacin, continue dose and check fasting [id number] Aracely olsen MD Tele[facility] [address] [facility] [address] [facility] [place] [address] 06/22/2020 06:18:37 06/23/2020 08:38:20 Adult health examination 801342184 Z00.00 colonoscop y is utd. trying to eat better Carotid ar dayan stenosis 83143252 I65.29 recent Carotid US is stable, on asa, followed by [facility] Essential hypertension 82566471 I10 on meds and uses [facility] has been doing every morning but no numbers this week, we will look into Hypercholesterolemia 136 26237 E78.00 on niacin and ezetimibe continue dose LDL 130. doing better with ice cream Post-traum atic stress disorder 83755187 F43.10 dx at [facility], will be discussing with his new primary Dr Rutherford will talk to her about PTSD treatment options Peripheral vascular disease 480888907 I73.9 recetn eval of LE blood flow, requested results, carotids recently checked and seemed fine as per pt [id number] Aracely olsen MD Telehe[facility] [address] [place] [place] [address] 10/17/2020 12:39:31 10/17/2020 15:36:18 Carotid artery stenosis 20305813 I65.29 recent Carotid US is stable, on asa, followed by [facility] Essential hypertension 07777553 I10 cardiology raised amlodipine to 7.5mg from 5mg buty pt felt wiped out so lowered it and now BP is fine, and he feels better. continue meds as they are Hypercholesterolemia 136 14145 E78.00 on niacin and ezetimibe continue dose LDL 130. doing better with ice cream [id number] Aracely olsen MD Main Office [address] [facility] [address] [place] [address] 06/23/2021 08:56:13 06/23/2021 09:55:41 Adult health examination 725874776 Z00.00 colonoscop y is utd. trying to eat better Carotid ar dayan stenosis 75158363 I65.29 recent Carotid US is stable, on asa, followed by [facility] annually not smoking cigars Essential hypertension 43056991 I10 BP well controlled . Hypercholesterolemia 136 26974 E78.00 check fasting Low back pain 988749270 M54.[address] [facility] Peripheral vascular disease 622201366 I73.9 recetn eval of LE blood flow, requested results, carotids recently checked and seemed fine as per pt [id number] Aracely olsen MD Main Office [address] [facility] [address] [place] [place] [address] 01/08/2022 09:49:32 01/08/2022 11:18:44 Carotid artery stenosis 91668936 I65.29 surgery done, has surveillan ce yearly for left side, medical management in place Essential hypertension 38619662 I10 BP controlled on current meds. Advised walking or aerobic exercise 4-5 days a week for at least 20 minutes. Advised lower fat diet with aim toward weight loss. Hypercholesterolemia 136 38292 E78.00 bump in cholestero l last May, will recheck, diet reviewed, compliant with meds. Nocturia 676411008 R35.1 pt with no increase, gets up once at baseline, declined prostate screening at this time Screening for malignant neoplasm of colon 024269364 Z12.11 pt with twin brother with colon cancer, his last colon was 6 years ago, I advised repeating colon screening once more due to relative good health and family history. [id number] MADELEINE JONES MD Main Office [address] [facility] [place] [address] 02/15/2023 10:36:59 02/15/2023 11:14:48 Carotid artery stenosis 81525767 I65.29 - surgery done on the right side- will need surgery on left, in the works of being planned> pt first needs to cardiology - c/w ASA 325mg, niacin ER 500mg QID and ezetimibe 10mg QD- continue to follow with vascular surgery Essential hypertension 24129967 I10 - at goal- BP today is 126/73- c/w amlodipine 5mg and metoprolol tartrate 25mg BID Pt counselled on:-Dietar y Approaches to Stop Hypertensi on (DASH) is an eating plan rich in fruits, vegetables , whole grains, fish, poultry, nuts, legumes, and low-fat dairy. These foods are high in pitts nutrients such as potassium, magnesium, calcium, fiber, and protein.-A dvised continued adherence to medication s and low salt diet - extensive counsellin g done regarding dietary habits.-En couraged regular aerobic exercise 30 min for 4-5 x week.-BP monitoring at home advised to bring log at every visit-Side -effects of high BP can cause Stroke, Heart attack and even d/w pt-D/w pt when to call 911 or reach out to Health care provider:> Think you are having a reaction to a medicine you are taking.>Mcgrath ve headaches that keep coming back (recurring ).>Feel dizzy.>Hav e swelling in your ankles.>Mcgrath ve trouble with your vision. 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, with severe bilateral neural foraminal narrowing andcompres elsa of bilateral exiting L4 nerve roots at this level.- pt advised to increase gabapentin to 300mg BID (and can go to TID) to help with his pain [id number] MADELEINE JONES MD Main Office [address] [facility] [address] [facility] [place] [address] 08/22/2023 08:30:52 08/22/2023 09:26:02 Adult health examination 342839990 Z00.00 Health Maintenanc e Danica) Patient was counseled on healthy diet, exercise and nutrition due to BMI of 30.1 B) Screening: Last PSADate: Result: ???Next: now aged out Last Colonoscop y: start at age 45-65Date: 07/28/2013Re sult: internal hemorrhoid sNext: aged out AAA: ordered Low dose CT scan: no longer meets criteria C) Vaccines:I nfluenza: refusedTdA P: 06/09/2018 (Td)Zoster : due at 79HNC86: 02/03/2015P PSV23: 06/29/2013CO VID: refused D) Routine blood work orderedE) Updated patient's history RTC in one year for annual exam or sooner if any acute complaints Carotid ar dayan stenosis 44923452 I65.29 - surgery done on the right side and left sided 05/2023- c/w ASA 325mg, niacin ER 500mg QID and ezetimibe 10mg QD- continue to follow with vascular surgery Essential hypertension 26929374 I10 - at goal- BP today is 123/73- c/w amlodipine 5mg and metoprolol tartrate 25mg BID Pt counselled on:-Dietar y Approaches to Stop Hypertensi on (DASH) is an eating plan rich in fruits, vegetables , whole grains, fish, poultry, nuts, legumes, and low-fat dairy. These foods are high in pitts nutrients such as potassium, magnesium, calcium, fiber, and protein.-A dvised continued adherence to medication s and low salt diet - extensive counsellin g done regarding dietary habits.-En couraged regular aerobic exercise 30 min for 4-5 x week.-BP monitoring at home advised to bring log at every visit-Side -effects of high BP can cause Stroke, Heart attack and even d/w pt-D/w pt when to call 911 or reach out to Health care provider:> Think you are having a reaction to a medicine you are taking.>Mcgrath ve headaches that keep coming back (recurring ).>Feel dizzy.>Hav e swelling in your ankles.>Mcgrath ve trouble with your vision. Neck pain 22474426 M54.2 - now resolved s/p laminectom y Lumbar radiculopathy 128 310138 M54.16 - pt has bilateral nerve pain- following with neurosurge ry last seen on 02/15- MRI of the lumbar spine showing: 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, with severe bilateral neural foraminal narrowing and compressio n of bilateral exiting L4 nerve roots at this level.- pt advised to increase gabapentin to 300mg BID (and can go to TID) to help with his pain- s/p on 06/22/2023: s/p L4-L5 resection with fusion and screw fixation- pt does have some left sided weakness Vitamin D deficiency 347 97706 E55.9 - will check levels Insomnia 910304424 G47.0 0 - no resolved- discussed sleep apnea Hypercholesterolemia 136 71943 E78.00 - ASCVD score of 29%- lipid panel: 11/24/22: cholestero l-203, triglyceri de-143, LDL-129, HDL-45- pt is following with cardiology - cannot tolerate statin therapy- c/w niacin ER 500mg QID and ezetimibe 10mg QD Abdominal aortic aneurysm screening 740895109 Z13.6 - never performed, ordered- pt has a hx of smoking Ex-smoker 1960527 Z87.89 1 - pt quit in 1993 (30 years ago), was using one pack day for 27 years- pack years 27 Body mass index 30+ - obesity 091696142 Z68.30 - BMI of 30.1 At [facility] risk for falls 451117555 Z91.81 - s/p on 06/22/2023: s/p L4-L5 resection with fusion and screw fixation- pt does have some left sided weakness noted while walking- 5+ strength noted on exam on lower extremitie s- pt will be seeing vascular for ultrasound s- will give patient a handicap placard Obesity 071244582 E66.9 - Cut down on (limit) fast foods, sweets, and processed snack foods.- Limit alcohol intake to no more than 1- 2 drinks a day for men. One drink equals 12 oz of beer, 5 oz of wine, or 1 oz of hard liquor.- Keep a weight loss journal and keep track of the food and portions that you eat.- The exercise that you do- 4 times a week or 150 minutes cumulative of moderate exercise recommende kenya markham discussed with patient 863326545 Z71.89 - discussed MOLTS, have HCP on file Varicella vaccination 68 097514 Z23 [id number] MADELEINE JONES MD Main Office [address] [facility] [address] [place] [address] 11/26/2023 08:13:59 11/26/2023 09:04:21 Muscle weakness 98520525 M62.81 - bilateral- due to spasms and pain will check CK levels- will r/out any inflammato ry causes (ordered ESR and CRP) and will check to ensure no rheumatolo gical disease- will check on vitamin levels such as vitamin D and B12- no concern for acute stroke as patient has been having this weakness for over one year and described more as fatigue and not weakness Pain in bi lateral legs 8326437650 9996926 M79.604 - has been undergoing for one year, associated with bilateral leg fatigue and spasms- please see weakness for more work-up on the bilateral leg fatigue- will check for SONAL- suggested patient to start magnesium in the evening- advised to stop gabapentin as it not providing relief Pain of hip region 52011 002 M25.551 M25.552 - 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 begin Rosemary 180 mg in the am and benadryl small dose at HS. Prednisone taper as directed for 8 days. If rash persists ot reoccurs after the treatment, see dermatolog ist. [id number] MADELEINE JONES MD Main Office [address] [facility] [address] [facility] [place], [place] [address] 02/11/2024 09:43:07 02/11/2024 10:19:07 Bilateral trochanteric bursitis [id number] M70.61 M70.62 - pt is following with ortho and getting steroid injections , last was 02/07/2024> had in bilateral hips Lumbar radiculopathy 128 078416 M54.16 - pt has bilateral nerve pain- following with neurosurge ry last seen on 02/15- MRI of the lumbar spine showing: 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, with severe bilateral neural foraminal narrowing and compressio n of bilateral exiting L4 nerve roots at this level.- pt advised to increase gabapentin to 300mg BID (and can go to TID) to help with his pain- s/p on 06/22/2023: s/p L4-L5 resection with fusion and screw fixation (Dr Perea)- pt does have some left sided weakness- please note patient is following up with his surgeon for left sided foot drop Muscle weakness [id number] M62.81 - bilateral- there were no improvemen ts after CK levels normalized - normal ESR and CRP, STUART negative- normal vitamin D and B12- pt will be having EMG with [facility] provider, will send over my notes Influenza vaccine needed [id number] Z23 65 YEARS AND OLDER Benign pro static hyperplasia [id number] N40.0 - refilled tamsulosin Hyperlipidemia 03336839 E78.5 - pt was off both the niacin and ezetimibe for about 2 months- will recheck cholestero l levels due to this- will also check CK levels to ensure not to elevated Edema of l ower extremity [id number] R60.0 - bilateral but worse on the left side- will do a course furosemide to see if it improved swelling- pt advised to continue to wear this compressio n stockings as well- ordered bmp to check on potassium levels Essential hypertension 71931757 I10 - at goal- BP today is 118/66- started patient on furosemide 20mg QD- due to the start of furosemide , decreased amlodipine from 5mg to 2.5mg- c/w metoprolol tartrate 25mg BID- RTC in 4 weeks Pt counselled on:-Dietar y Approaches to Stop Hypertensi on (DASH) is an eating plan rich in fruits, vegetables , whole grains, fish, poultry, nuts, legumes, and low-fat dairy. These foods are high in pitts nutrients such as potassium, magnesium, calcium, fiber, and protein.-A dvised continued adherence to medication s and low salt diet - extensive counsellin g done regarding dietary habits.-En couraged regular aerobic exercise 30 min for 4-5 x week.-BP monitoring at home advised to bring log at every visit-Side -effects of high BP can cause Stroke, Heart attack and even d/w pt-D/w pt when to call 911 or reach out to Health care provider:> Think you are having a reaction to a medicine you are taking.>Mcgrath ve headaches that keep coming back (recurring ).>Feel dizzy.>Hav e swelling in your ankles.>Mcgrath ve trouble with your vision. [id number] MADELEINE JONES MD Main Office [address] [place] [address] 03/26/2024 08:59:50 03/26/2024 09:53:23 Benign prostatic hyperplasia with outflow obstruction [id number] N40.1 - will check on prostate levels- symptoms worse at night- pt advised to try taking tamsulosin at night, if no improvemen t can try changing to terazosin- counselled on BPH and different treatment plans- will wait to hold on urology referral at this time as patient would like to try these changes first Essential hypertension 69249944 I10 - low today- BP today is 93/51 and on repeat 94/52- will decrease amlodipine from 5mg to 2.5mg- c/w metoprolol tartrate 25mg BID- RTC in 4 weeks for recheck Pt counselled on:-Dietar y Approaches to Stop Hypertensi on (DASH) is an eating plan rich in fruits, vegetables , whole grains, fish, poultry, nuts, legumes, and low-fat dairy. These foods are high in pitts nutrients such as potassium, magnesium, calcium, fiber, and protein.-A dvised continued adherence to medication s and low salt diet - extensive counsellin g done regarding dietary habits.-En couraged regular aerobic exercise 30 min for 4-5 x week.-BP monitoring at home advised to bring log at every visit-Side -effects of high BP can cause Stroke, Heart attack and even d/w pt-D/w pt when to call 911 or reach out to Health care provider:> Think you are having a reaction to a medicine you are taking.>Mcgrath ve headaches that keep coming back (recurring ).>Feel dizzy.>Hav e swelling in your ankles.>Mcgrath ve trouble with your vision. [id number] MADELEINE JONES MD Main Office [address] [address] 04/24/2024 14:03:49 04/24/2024 14:58:04 Essential hypertension 92819412 I10 - at goal- BP today is 122/68- at this time will continue with amlodipine from 5mg- c/w metoprolol tartrate 25mg BID Pt counselled on:-Dietar y Approaches to Stop Hypertensi on (DASH) is an eating plan rich in fruits, vegetables , whole grains, fish, poultry, nuts, legumes, and low-fat dairy. These foods are high in pitts nutrients such as potassium, magnesium, calcium, fiber, and protein.-A dvised continued adherence to medication s and low salt diet - extensive counsellin g done regarding dietary habits.-En couraged regular aerobic exercise 30 min for 4-5 x week.-BP monitoring at home advised to bring log at every visit-Side -effects of high BP can cause Stroke, Heart attack and even d/w pt-D/w pt when to call 911 or reach out to Health care provider:> Think you are having a reaction to a medicine you are taking.>Mcgrath ve headaches that keep coming back (recurring ).>Feel dizzy.>Hav e swelling in your ankles.>Mcgrath ve trouble with your vision. Foot-drop 1616099 M21.37 2 - chronic problem- pt is following with [facility] for this problem [id number] Devon Maldonado MD Main Office [address] [facility] [address] [place] [address] 07/20/2024 15:01:23 07/20/2024 16:18:11 Compression fracture of L2 [id number] 4895981 M48.56XA Resolving, on gabapentin already but only BID. Advised ok to take TID. Not likely to benefit from vertebropl asty as pain seems to be improving. Essential hypertension 85517296 I10 Would check UA to screen for potential kidney injury but unlikely. Constipation 14091579 K5 9.00 Continue fiber, discontinu e docusate and start senna. Low back pain 019886474 M54.50 Chronic issue with acute exacerbati on that appear to be related to L2 compressio n fracture likely sustained from fall 6 weeks ago. Less likely post laminectom y. Constipati on not likely helping. Fall W19.XXXA fell in his kitchen [id number] MADELEINE JONES MD Main Office [address] [place] [place] [address] [address] [place] [address] 07/30/2024 15:19:36 07/30/2024 16:19:40 Hypercholesterolemia 68399846 E78.00 - not at goal- ASCVD score of 29%- lipid panel: 02/2024: cholestero l-199, triglyceri de-115, LDL-127, HDL-51- pt was following with cardiology - cannot tolerate statin therapy due to hx of rhabomyoli sis and elevated CK levels- c/w ezetimibe 10mg QD and niacin ER 500mg QID- did have a discussion with patient on switching niacin to nexletol for control on his cholestero l. however has patient has an appoitment with cardiology in August, he will discuss with them first [id number] MADELEINE JONES MD Main Office [address] [facility] [address] [place] [address] 08/24/2024 09:15:20 08/24/2024 09:53:07 Adult health examination [id number] Z00.00 Health Maintenanc e Danica) Patient was counseled on healthy diet, exercise and nutrition due to BMI of 29 B) Screening: Last PSA: aged out Last Colonoscop y: aged out AAA: normal done on 10/[address] scan: no longer meets criteria C) Vaccines:I nfluenza: refusedTdA P: 06/09/2018 (Td)Zoster : refusedPCV 13: 02/03/2015P PSV23: 06/29/2013CO VID: refused D) Routine blood work orderedE) Updated patient's history RTC in one year for annual exam or sooner if any acute complaints Compressio n fracture of L2 [id number] 7043925 M48.56XA - not currently a surgical candidate based on note from neurosurge ry on 08/04/2024- pt is getting a second opinion on September 02 Essential hypertension 19415743 I10 - at goal- BP today is 114/66- at this time will continue with amlodipine from 5mg- c/w metoprolol tartrate 25mg BID Pt counselled on:-Dietar y Approaches to Stop Hypertensi on (DASH) is an eating plan rich in fruits, vegetables , whole grains, fish, poultry, nuts, legumes, and low-fat dairy. These foods are high in pitts nutrients such as potassium, magnesium, calcium, fiber, and protein.-A dvised continued adherence to medication s and low salt diet - extensive counsellin g done regarding dietary habits.-En couraged regular aerobic exercise 30 min for 4-5 x week.-BP monitoring at home advised to bring log at every visit-Side -effects of high BP can cause Stroke, Heart attack and even d/w pt-D/w pt when to call 911 or reach out to Health care provider:> Think you are having a reaction to a medicine you are taking.>Mcgrath ve headaches that keep coming back (recurring ).>Feel dizzy.>Hav e swelling in your ankles.>Mcgrath ve trouble with your vision. Foot-drop 1808327 M21.37 2 - chronic problem- pt is following with [facility] for this problem Hypercholesterolemia 136 81594 E78.00 - not at goal- ASCVD score of 29%- lipid panel: 02/2024: cholestero l-199, triglyceri de-115, LDL-127, HDL-51- pt was following with cardiology - cannot tolerate statin therapy due to hx of rhabomyoli sis and elevated CK levels- c/w ezetimibe 10mg QD and niacin ER 500mg QID- did have a discussion with patient on switching niacin to nexletol for control on his cholestero l. however has patient has an appoitment with cardiology in August, he will discuss with them first Insomnia 122005585 G47.0 0 - no resolved- discussed sleep apnea Lumbar radiculopathy 128 791594 M54.16 - pt has bilateral nerve pain- following with neurosurge ry last seen on 08/04/2024- MRI of the lumbar spine showing: 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, with severe bilateral neural foraminal narrowing and compressio n of bilateral exiting L4 nerve roots at this level.- pt advised to increase gabapentin to 300mg BID (and can go to TID) to help with his pain- s/p on 06/22/2023: s/p L4-L5 resection with fusion and screw fixation (Dr Perea)- pt does have some left sided weakness- please note patient is following up with his surgeon for left sided foot drop Vitamin D deficiency 347 41544 E55.9 - will check levels Carotid ar dayan stenosis 75211066 I65.29 - surgery done on the right side and left sided 05/2023- c/w ASA 325mg, niacin ER 500mg QID and ezetimibe 10mg QD- continue to follow with vascular surgery Advance leon traylor discussed with patient [id number] Z71.89 - discussed POLTS, have HCP on file [id number] MADELEINE JONES MD Main Office [address] [facility] [address] [facility] [place] [address] 12/07/2024 09:39:03 12/07/2024 10:18:57 Compression fracture of L2 [id number] 0825567 M48.56XA - not currently a surgical candidate based on note from neurosurge ry on 08/04/2024- currently following with physiatry for back pain, getting steroid injections > providing mild relief Essential hypertension 82377891 I10 - at goal- BP today is 125/73- c/w metoprolol tartrate 25mg BID and amlodipine 5mg qd Pt counselled on:-Dietar y Approaches to Stop Hypertensi on (DASH) is an eating plan rich in fruits, vegetables , whole grains, fish, poultry, nuts, legumes, and low-fat dairy. These foods are high in pitts nutrients such as potassium, magnesium, calcium, fiber, and protein.-A dvised continued adherence to medication s and low salt diet - extensive counsellin g done regarding dietary habits.-En couraged regular aerobic exercise 30 min for 4-5 x week.-BP monitoring at home advised to bring log at every visit-Side -effects of high BP can cause Stroke, Heart attack and even d/w pt-D/w pt when to call 911 or reach out to Health care provider:> Think you are having a reaction to a medicine you are taking.>Mcgrath ve headaches that keep coming back (recurring ).>Feel dizzy.>Hav e swelling in your ankles.>Mcgrath ve trouble with your vision. Foot-drop 5604030 M21.37 2 - chronic problem- pt is following with [facility] for this problem Hypercholesterolemia 136 48845 E78.00 - not at goal- ASCVD score of 29%- lipid panel: 02/2024: cholestero l-199, triglyceri de-115, LDL-127, HDL-51- pt was following with cardiology - cannot tolerate statin therapy due to hx of rhabomyoli sis and elevated CK levels- pt was placed on repatha however it caused hives- not currently on niacin ER 500mg QID- c/w ezetimibe 10mg QD and niacin ER 500mg QID- ordered lipid panel> if under good control will go back to niacin> if not under good control will try nexletol- continue to follow with cardio Insomnia 736231146 G47.0 0 - no resolved- discussed sleep apnea Lumbar radiculopathy 128 159646 M54.16 - pt has bilateral nerve pain- following with neurosurge ry last seen on 08/04/2024- MRI of the lumbar spine showing: 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, with severe bilateral neural foraminal narrowing and compressio n of bilateral exiting L4 nerve roots at this level.- pt advised to increase gabapentin to 300mg BID (and can go to TID) to help with his pain- s/p on 06/22/2023: s/p L4-L5 resection with fusion and screw fixation (Dr Perea)- pt does have some left sided weakness- please note patient is following up with his surgeon for left sided foot drop- pt was seen by physiatry on 09/02 and was given a SI joint injection Pruritic d isorder of skin [id number] L29.9 56410 - located on the face- could be coming from recent allergic reaction of repetha- overall rash is lacy is nature and in certain parts the face- provided with steroid cream- has is not currently having systemic features of allergies no need to steroid treatment or benadryl Right side d abdominal pain 094647994 R10.9 669426 - intermitte nt and patient cannot give a good descriptio n of when if occurs- however feels better after a bowel movement- has been present since 06/2024- ordered ultrasound of the gall-bladd er Chronic constipation 236 009027 K59.09 668800 - has been worsening- LBM was this morning- taking metamucil daily> please not patient was given senna but never took it- ordered x-ray of the abdomen- ordered some blood work as well to check for weight loss as well- may need to consider CT abdomen and pelvis if initial work-up negative Unintentio nal weight loss 265540478 R63.4 234311 - has lost 20lbs since 03/2024- associated with decrease appetite- ordered x-ray of the abdomen to check for stool burden due to constipati on- ultrasound sound gall-bladd er ordered due to intermitte nt right sided abdominal pain- ordered BMP, hepatic function panel and CRP- next set of work-up: chest x-ray, FOBT, hepatitis panel and CT abdomen and pelvis [id number] MADELEINE JONES MD Main Office [address] [facility] [address] [facility], [place] [address] 02/11/2025 11:04:48 02/11/2025 12:15:39 Alkaline phosphatase above reference range 407962974 R74.8 066478 - noted to be 122- will check repeat Unintentio nal weight loss 504510730 R63.4 293859 - has lost 27lbs since 03/2024- associated with decrease appetite and decreased portions- ordered chest x-ray- ultrasound sound gall-bladd er ordered due to intermitte nt right sided abdominal pain was normal- ordered UA, inflammato ry markers, liver panel and BMP- will check HIV and hepatitis panel- ordered FOBT- ordered for CT abdomen and pelvis Idiopathic hypotension 302906623 I95.0 398101 - BP has been trending down- pt had been experienci ng light-head iness especially when changing positions- BP today is 96/57- stopped amlodipine 5mg QD- c/w metoprolol tartrate 25mg BID Hypercholesterolemia 136 81249 E78.00 77972 - improved- ASCVD score of 29%- lipid [...] I am unsure as to why cardiologi does not just prescribe medication [id number] Tony Mas MD Main Office [address] [facility] [address] [facility] [place] [address] 02/12/2025 14:54:46 02/12/2025 16:23:25 [id number] MADELEINE JONES MD Main Office [address] [facility] [address] [facility] [place] [address] 03/09/2025 13:03:10 03/09/2025 14:05:20 Unintentional weight loss 050317199 R63.4 742304 - has lost 27lbs since 03/2024- associated with decrease appetite and decreased portions- normal chest x-ray> ordered ct chest- ultrasound sound gall-bladd er ordered due to intermitte nt right sided abdominal pain was normal- UA was positive but likely a contaminat ion. however in light of patient's symptoms treated with macrobid> repeat urine studies ordered for resolution -> not yet performed- normal inflammato ry markers, liver panel and BMP- negative HIV- positive FOBT on 02/17> repeat done in office on 03/09 was negative- normal for CT abdomen and pelvis- will contact GI office to see if colonoscop y is needed- recommende d ensure or boost Alkaline p hosphatase above reference range 358660222 R74.8 253601 - resolved on repeat testing- normal AFP, GGT and alk phos isoenzymes Hypercholesterolemia 136 26187 E78.00 94977 - improved- ASCVD score of 29%- lipid [...] cardiologi st does not just prescribe medication > PA for medicine done 03/09 Essential hypertension 24031246 I10 - at goal- BP today is 124/72- pt had been experienci ng light-head iness especially when changing positions and it was BP was hypotensiv e therefore amlodipine was stopped on 02/11/2025- c/w metoprolol tartrate 25mg BID Pt counselled on:-Dietar y Approaches to Stop Hypertensi on (DASH) is an eating plan rich in fruits, vegetables , whole grains, fish, poultry, nuts, legumes, and low-fat dairy. These foods are high in pitts nutrients such as potassium, magnesium, calcium, fiber, and protein.-A dvised continued adherence to medication s and low salt diet - extensive counsellin g done regarding dietary habits.-En couraged regular aerobic exercise 30 min for 4-5 x week.-BP monitoring at home advised to bring log at every visit-Side -effects of high BP can cause Stroke, Heart attack and even d/w pt-D/w pt when to call 911 or reach out to Health care provider:> Think you are having a reaction to a medicine you are taking.>Mcgrath ve headaches that keep coming back (recurring ).>Feel dizzy.>Hav e swelling in your ankles.>Mcgrath ve trouble with your vision. Health Concerns Section Related Observation LastModified by Organization Detai ls LastModified Time None Recorded Concern Status LastModified by Organization Details LastModified Time None Recorded Advance Directives Directive Y: Jing Brown Payers Insurance Date Sequence Insurance Name Policy Number Policy Patel Covered Member ID Patel Member ID Guarantor Name 02/11/2025 1 [facility] ([facility] [id number] Neil Zepeda Stephanie [id number] Neil Duane Stephanie 03/09/2025 1 [facility] - MEDICARE ADVANTAGE PLAN (MEDICARE REPLACEMENT HMO) [id number] Neil Zepeda Stephanie [id number] Neil Zepeda Stephanie Notes Date Note Type Note Provider Name and Address Organization Details Recorded Time 5 text/html Medicare Annual Wellness VisitReported by PatientSocial/Behavioral HistoryFor physical activity, patient reportsdoes not exercise on a regular basis,decreased physical activity, andpoor physical condition. For diet and nutrition, patient reportshealthy diet(mmv, fish oil). For fracture risk, patient reportsno history of fractures.Mental Status:For depression risk, patient reportsno history of depressionandno history of mood disorders. For orientation, patient reportsno disorientation to time. For concentration and memory, patient reportsno decreased concentrating ability,no memory lapses or loss, anddoes not forget words. For speech/motor difficulties, patient reportsno speech difficulties,no difficulty expressing formulated concepts,no difficulty with fine manipulative tasks,no difficulty writing/copying,no slowed reaction time, anddoes not knock things over when trying to pick them up.Functional AbilityFor hearing, patient reportsno loss of hearing. For vision, patient reportsno vision problems(wears glasses). For activities of daily living, patient reportsable to bathe with limited or no assistance,able to contol urination and bowels,able to dress with limited or no assistance,able to feed self with limited or no assistance,able to get out of chair or bed with limited or no assistance,able to groom with limited or no assistance, andable to toilet with limited or no assistance. For instrumental activities of daily living, patient reportsable to do house work with limited or no assistance,able to grocery shop with limited or no assistance,able to manage medications with limited or no assistance,able to manage money with limited or no assistance,able to prepare meals with limited or no assistance, andable to use the phone with limited or no assistance. For falls risk assessment, patient reportsno frequent falls while walkingandno fall in the past year. For home safety, patient reportsno unsafe bear hazzards,no unsafe stairs,no unsafe gas appliances,working smoke/co detectors,wears protective head gear for biking/high velocity,use of seatbelts,practicing 'safer sex',no vision or hearing loss while driving,no fire arms,has hand bars in the bathroom/shower, andgood lighting in the home. Medicare visit Neil Brown is a 79 year old M who presents to complete their Annual Wellness Visit. Pt continues to have pain in the lower back after his fall. Will no longer be undergoing any surgery. Will be getting a second opinion September 02. Visit Type: Annual How would you rate your health? Fair Have you been discharged from the hospital recently? YesHave you been to the emergency room or urgent care recently? NoDo you have any significant previous hospital stays, injuries, or treatment? Yes for back pain Home Safety:Has railing on both sides for the stairsIs the tub or shower floor slippery and do you need support? YesDo you need some support when you get in and out of the tub or from the toilet? NoDo you have any small rugs or runners that slide or bunch up when you push them with your foot? NoAre there papers, books, towels, shoes, magazines, boxes, blankets, or other objects on the floor? No The patient does have a history of falls. Oral Health: has dentures -does not seeEye Health: once a yearMotor Vehicle: Yes Do you wear a seatbelt when in a car? Yes Screening Tools:Were there any ADL or IADL deficiencies not linked to physical limitations? NoDuring the past 12 months, have you experienced confusion or memory loss that is happening more often or is getting worse? No Advance Directive: HCP and POLTS MADELEINE JONES MD [address] [address], [place], [address], [facility] 08/24/2024 09:59:59 5 text/html ConstipationReported by PatientHPIFor quality, patient reportshardandpainful. For context, patient reportshistory of chronic idiopathic constipation. For associated symptoms, patient reportsabdominal painandweight loss (5 lbs)but reportsno excess gas,no fever,no rash,no joint pain,no vomiting,no heartburn,no blood in stool,no mucus in stool,no black or tarry stools,no weakness, andno nutrient deficiency. For severity, patient reportsmoderate. For duration, patient reportspresent for 1-6 months. For onset/timing, patient reportsonce every three days. For alleviating factors, patient reportshaving bowel movement. Abdominal PainReported by PatientAbdominal PainFor quality, patient reportsaching. For location, patient reportsrlq. For severity, patient reportsmild. For duration, patient reportsintermittent. For onset/timing, patient reportswax/wane. For associated symptoms, patient reportsno fever,no chills,no blood in the urine,no heartburn, andno shortness of breath. Back PainReported by PatientHPIFor quality, patient reportssharp. For severity, patient reportsworsening. For location, patient reportspain is not radiating. For duration, patient reportsacuteandchronic. For context, patient reportstrauma (tripped in his kitchen 6 weeks ago.)andhad evaluations by back specialist. For associated symptoms, patient reportsno fever,no weak limbs,no numbness of the legs/feet,no tingling,no incontinence, andno shortness of breath.History of L5/S2 posterior fusion in May 2023 who slipped and fell in his kitchen 6 weeks ago landing on his back. Has a CT done on 06/11 and Seen by his spinal surgeon and seen by neurosurg on 07/17 and told that the fusion hardware was intact, but no comment on the L2 compression fracture that appeared subacute on the imaging. Patient has been following with neurosurgeon who mentioned that there was very little intervention they can do for the back pain, not a surgical candidate. HyperlipidemiaReported by PatientHPIFor type of hyperlipidemia, patient reportshypercholesterolemia . For duration, patient reportschronic. For control, patient reportsnot at goal. For compliance, patient reportsdoes not exercisebut reportscompliant with diet. For risk factors, patient reportshypertension.Followi ng with cardiology. Was started on repatha however got hives with the third injection. Located on the back. Did tell cardiology and was not started back on any other medications. Neil Brown is a 79 year old M who presents to the clinic for follow-up. MADELEINE JONES MD [address], [id number], [facility] 12/07/2024 11:57:50 5 text/html HyperlipidemiaReported by PatientHPIFor type of hyperlipidemia, patient reportshypercholesterolemia . For duration, patient reportschronic. For control, patient reportsnot at goal. For compliance, patient reportsdoes not exercisebut reportscompliant with diet. For risk factors, patient reportshypertension.Followi ng with cardiology. Was started on repatha however got hives with the third injection. Located on the back. Did tell cardiology and was not started back on any other medications.ROS as noted in the HPI Neil Brown is a 79 year old M who presents to the clinic for follow-up on weight loss. Patient has been having decreased appetite for the last 3-4 months. He did speak with cardiology about this who recommended patient get a colonoscopy or GI series. Patient mentions that is appetite has decreased. He will eat breakfast and have dinner. His portions has also been reduced. Food does not taste good to him anymore. No nausea or vomiting. Has been having some light-headiness. Reduced carbohydrates and beer. MADELEINE JONES MD [address], [phone], [facility] 02/11/2025 12:57:09 5 text/html HyperlipidemiaReported by PatientHPIFor type of hyperlipidemia, patient reportshypercholesterolemia . For duration, patient reportschronic. For control, patient reportsnot at goal. For compliance, patient reportsdoes not exercisebut reportscompliant with diet. For risk factors, patient reportshypertension.Followi ng with cardiology. Was started on repatha however got hives with the third injection. Located on the back. Did tell cardiology and was not started back on any other medications. Ordered nexletol. PA was not yet done by BRIANNE.ROS as noted in the HPI Neil Brown is a 79 year old M who presents to the clinic for follow-up on weight loss. Patient has been having decreased appetite for the last 3-4 months. He did speak with cardiology about this who recommended patient get a colonoscopy or GI series. Patient mentions that is appetite has decreased. He will eat breakfast and have dinner. His portions has also been reduced. Food does not taste good to him anymore. No nausea or vomiting. Has been having some light-headiness. Reduced carbohydrates and beer. Patient also endorses since last visit he has a fall and hit his head. This occurred on 03/02/2025.Date- 03/02/2025 time- 2:00 PMInjury Description- tripped with left foot and went down on the knees. did hit his head, no LOCEvidence of forcible blow to the head- noEvidence of intracraneal fracture- noAmnesia- Retrograde; no, Anterograde; no Early signs - was getting headaches, mild word finding difficultiesAppears dazed/stunned- yesConfused about events- noAnswer questions slowly- noRepeats questions- noForgetful- noSeizures- noCT scan- noHistory of concussion- noHistory of Headaches- noHistory of ADHA/ADD-noPsychiatric History- Anxiety; no, Depression; no, Sleep Disorder;noFamily History of Headaches- no MADELEINE JONES MD [address] [facility] [address], [place], [id number], [facility] 03/09/2025 16:12:22
--- OUTSIDE RECORDS SUMMARY | 2025-04-16 10:19 | XMS_ITS | Continuity of Care Document ---
Author Organization [facility], Main Office Address [address] [place] [address] Care Team Providers Care Mason Tender Restoration Labor Name Role Phone SY MISHA Optic Fibre Drawer NATALIE SANFORD Optic Fibre Drawer JING MCKINNEY Referring Provider [phone] ERIC HANNON Hand Surgeon NAYA LARSON Orthopedic Surgeon [phone] DOMINGO TRUONG Sound Recordist MADELEINE JONES Primary Care Provider SUN PEREA Referring Provider [facility] Referring Provider Assessment No assessment recorded. Plan of Treatment Reminders Order Date Submit Date Provider Last Modified By Organization Details Last Modified Time Details Appointments FOLLO W UP 2025 11:30A M MADELEINE JONES MD Not available Not available Not available Lab fecal occul t blood , immun oassa y, stool 2024 025 ALANNA In-Office Order, Internal Use Only DO Not Attach Compendium DO Not Attach Compendium, Do Not Delete/merge, [id number] 03/09/2025 16:12:48 Referral gastr edd tolentino ist refer ral - for consi derat ion of repea t colon oscop y due to patie nt havin g weigh t loss. FIT was posit annetta, FOBT negat annetta. CT abdom en showe d diver ticul i 2024 025 ATHENAFAX [facility], [address] [place], [address], 03/10/2025 13:20:04 Procedures None recor ded. Surgeries None recor ded. Imaging CT, chest , w/o contr ast - over the last year patie nt has been havin g worse lore weigh t loss, curre nt cause unkno wn [id number] [facility] ([facility]), [address] [place], [address], 03/10/2025 12:45:53 Medication Orders None recor ded. Patient TargetsNo targets recorded. Patient InstructionsNo instructions recorded. Reason for Referral Sound Recordist Referral for Unintentional weight loss for consideration [...] of this speci men. Not Available [facility] ([facility]) [address] [place], [address], 02/16/2025 08:07:32 02/12/20 25 02/15/2025 CBC WITH DIFFE RENTI AL/PL ATELE T RBC TNP Test not perfo rmed Not Available [facility] ([facility]) [address] [place], [address], 02/16/2025 08:07:32 02/12/20 25 02/15/2025 CBC WITH DIFFE RENTI AL/PL ATELE T hemoglobin TNP Test not perfo rmed Not Available [facility] ([facility]) [address] [place], [address], 02/16/2025 08:07:32 02/12/20 25 02/15/2025 CBC WITH DIFFE RENTI AL/PL ATELE T hematocrit TNP Test not perfo rmed Not Available [facility] ([facility]) [address] [facility], [place], [address], 02/16/2025 08:07:32 02/12/20 25 02/15/2025 CBC WITH DIFFE RENTI AL/PL ATELE T MCV IS/IT PROJECT MANAGER Not Available [facility] ([facility]) [address] [facility], [place], [address], 02/16/2025 08:07:32 02/12/20 25 02/15/2025 CBC WITH DIFFE RENTI AL/PL ATELE T MCH IS/IT PROJECT MANAGER Not Available [facility] ([facility]) [address] [facility], [place], [address], 02/16/2025 08:07:32 02/12/20 25 02/15/2025 CBC WITH DIFFE RENTI AL/PL ATELE T MCHC IS/IT PROJECT MANAGER Not Available [facility] ([facility]) [address] [facility], [place], [address], 02/16/2025 08:07:32 02/12/20 25 02/15/2025 CBC WITH DIFFE RENTI AL/PL ATELE T RDW IS/IT PROJECT MANAGER Not Available [facility] ([facility]) [address] [facility], [place], [address], 02/16/2025 08:07:32 02/12/20 25 02/15/2025 CBC WITH DIFFE RENTI AL/PL ATELE T platelets TNP Test not perfo rmed Not Available [facility] ([facility]) [address] [place], [address], 02/16/2025 08:07:32 02/12/20 25 02/15/2025 CBC WITH DIFFE RENTI AL/PL ATELE T neutrophils TNP Test not perfo rmed Not Available [facility] ([facility]) [address] [place], [address], 02/16/2025 08:07:32 02/12/20 25 02/15/2025 CBC WITH DIFFE RENTI AL/PL ATELE T lymphs TNP Test not perfo rmed Not Available [facility] ([facility]) [address] [place], [address], 02/16/2025 08:07:32 02/12/20 25 02/15/2025 CBC WITH DIFFE RENTI AL/PL ATELE T monocytes TNP Test not perfo rmed Not Available [facility] ([facility]) [address] [place], [address], 02/16/2025 08:07:32 02/12/20 25 02/15/2025 CBC WITH DIFFE RENTI AL/PL ATELE T eos TNP Test not perfo rmed Not Available [facility] ([facility]) [address] [place], [address], 02/16/2025 08:07:32 02/12/20 25 02/15/2025 CBC WITH DIFFE RENTI AL/PL ATELE T basos IS/IT PROJECT MANAGER Not Available [facility] ([facility]) [address] [place], [address], 02/16/2025 08:07:32 02/12/20 25 02/15/2025 CBC WITH DIFFE RENTI AL/PL ATELE T immature cells IS/IT PROJECT MANAGER Not Available [facility] ([facility]) [address] [place], [address], 02/16/2025 08:07:32 02/12/20 25 02/15/2025 CBC WITH DIFFE RENTI AL/PL ATELE T neutrophils (absolute) IS/IT PROJECT MANAGER Not Available [facility] ([facility]) [address] [place], [address], 02/16/2025 08:07:32 02/12/20 25 02/15/2025 CBC WITH DIFFE RENTI AL/PL ATELE T lymphs (absolute) TNP Test not perfo rmed Not Available [facility] ([facility]) [address] [facility], [place], [address], 02/16/2025 08:07:32 02/12/20 25 02/15/2025 CBC WITH DIFFE RENTI AL/PL ATELE T monocytes(ab solute) IS/IT PROJECT MANAGER Not Available [facility] ([facility]) [address] [facility], [place], [address], 02/16/2025 08:07:32 02/12/20 25 02/15/2025 CBC WITH DIFFE RENTI AL/PL ATELE T eos (absolute) TNP Test not perfo rmed Not Available [facility] ([facility]) [address] [facility], [place], [address], 02/16/2025 08:07:32 02/12/20 25 02/15/2025 CBC WITH DIFFE RENTI AL/PL ATELE T baso (absolute) TNP Test not perfo rmed Not Available [facility] ([facility]) [address] [facility], [place], [address], 02/16/2025 08:07:32 02/12/20 25 02/15/2025 CBC WITH DIFFE RENTI AL/PL ATELE T immature granulocytes IS/IT PROJECT MANAGER Not Available [facility] ([facility]) [address] [facility], [place], [address], 02/16/2025 08:07:32 02/12/20 25 02/15/2025 CBC WITH DIFFE RENTI AL/PL ATELE T immature grans (abs) IS/IT PROJECT MANAGER Not Available [facility]) [address] [facility], [place], [address], 02/16/2025 08:07:32 02/12/20 25 02/15/2025 CBC WITH DIFFE RENTI AL/PL ATELE T NRBC IS/IT PROJECT MANAGER Not Available [facility] ([facility]) [address] [facility], [place], [address], 02/16/2025 08:07:32 02/12/20 25 02/15/2025 CBC WITH DIFFE ELDON AL/PL MELQUIADES Sanches hematology comments: IS/IT PROJECT MANAGER Not Available [facility] ([facility]) [address] [facility], [place], [address], 02/16/2025 08:07:32 02/12/20 25 02/16/2025 IRON AND TIBC iron bind.cap.(TI BC) 322 ug/dL 250-45 0 normal Not Available [facility] ([facility]) [address] [facility], [place], [address], 02/16/2025 08:07:32 02/12/20 25 02/16/2025 IRON AND TIBC UIBC 240 ug/dL 111-34 3 normal Not Available [facility] ([facility]) [address] [facility], [place], [address], 02/16/2025 08:07:32 02/12/20 25 02/16/2025 IRON AND TIBC iron 82 ug/dL 38-169 normal Not Available [facility] ([facility]) [address] [facility], [place], [address], 02/16/2025 08:07:32 02/12/20 25 02/16/2025 IRON AND TIBC iron saturation 25 % 15-55 normal Not Available [facility] ([facility]) [address] [place], [address], 02/16/2025 08:07:32 02/12/20 25 02/16/2025 BRIANNA TIN ferritin 328 NG/mL 30-400 normal Not Available [facility] ([facility]) [address] [place], [address], 02/16/2025 08:07:33 02/12/20 25 02/15/2025 OKSANA EN AUTHO RIZAT ION written authorizatio n Nubia t Writt en Autho rizat ion Recei nisha. Autho rizat ion recei nisha from FELIPA Israel for Link Reque st on 02-15 Logge d by Ebonie pena Not Available [facility] ([facility]) [address] [facility], [place], [address], 02/16/2025 08:07:33 02/12/2002/15/[address] PROBL EM request problem COMMEN T Test not perfo rmed due to the age of this speci men. TEST: [id number] CBC With Diffe renti al/Pl atele t Not Available [facility] ([facility]) [address] [facility], [place], [address], 02/16/2025 08:07:33 02/12/2002/12/2025 BASIC METAB OLIC PANEL (8) glucose 82 mg/dL 70-99 normal Not Available [facility] ([facility]) [address] [facility], [place], [address], 02/17/2025 06:09:21 02/12/2002/12/2025 BASIC METAB OLIC PANEL (8) BUN 10 mg/dL 8-27 normal Not Available [facility] ([facility]) [address] [facility], [place], [address], 02/17/2025 06:09:21 02/12/2002/12/2025 BASIC METAB OLIC PANEL (8) creatinine 0.94 mg/dL 0.76-1 .27 normal Not Available [facility] ([facility]) [address] [place], [address], 02/17/2025 06:09:21 02/12/20 25 02/12/2025 BASIC METAB OLIC PANEL (8) eGFR 83 mL/mi n/1.7 3 >59 normal Not Available [facility] ([facility]) [address] [place], [address], 02/17/2025 06:09:21 02/12/20 25 02/12/2025 BASIC METAB OLIC PANEL (8) BUN/creatini ne ratio 11 10-24 normal Not Available [facility] ([facility]) [address] [facility] [place], [address], 02/17/2025 06:09:21 02/12/20 25 02/12/2025 BASIC METAB OLIC PANEL (8) sodium 138 mmol/ L 134-14 4 normal Not Available [facility] ([facility]) [address] [facility] [place], [address], 02/17/2025 06:09:21 02/12/20 25 02/12/2025 BASIC METAB OLIC PANEL (8) potassium 4.2 mmol/ L 3.5-5. 2 normal Not Available [facility] ([facility]) [address] [place], [address], 02/17/2025 06:09:21 02/12/20 25 02/12/2025 BASIC METAB OLIC PANEL (8) chloride 99 mmol/ L 96-106 normal Not Available [facility] ([facility]) [address] [place], [address], 02/17/2025 06:09:21 02/12/20 25 02/12/2025 BASIC METAB OLIC PANEL (8) carbon dioxide, total 24 mmol/ L 20-29 normal Not Available [facility] ([facility]) [address] [place], [address], 02/17/2025 06:09:21 02/12/20 25 02/12/2025 BASIC METAB OLIC PANEL (8) calcium 9.7 mg/dL 8.6-10 .2 normal Not Available [facility] ([facility]) [address] [place], [address], 02/17/2025 06:09:21 02/12/20 25 02/12/2025 HEPAT IC FUNCT ION PANEL (7) protein, total 6.9 g/dL 6.0-8. 5 normal Not Available [facility] ([facility]) [address] [place], [address], 02/17/2025 06:09:22 02/12/20 25 02/12/2025 HEPAT IC FUNCT ION PANEL (7) albumin 4.4 g/dL 3.8-4. 8 normal Not Available [facility] ([facility]) [address] [place] [place], [address], 02/17/2025 06:09:22 02/12/20 25 02/12/2025 HEPAT IC FUNCT ION PANEL (7) bilirubin, total 0.4 mg/dL 0.0-1. 2 normal Not Available [facility] ([facility]) [address] [place], [address], 02/17/2025 06:09:22 02/12/20 25 02/12/2025 HEPAT IC FUNCT ION PANEL (7) bilirubin, direct 0.11 mg/dL 0.00-0 .40 normal Not Available [facility] ([facility]) [address] [facility] [place], [address], 02/17/2025 06:09:22 02/12/2002/12/2025 HEPAT IC FUNCT ION PANEL (7) alkaline phosphatase 114 IU/L 47-123 normal Ple ase note refer ence karli waldo llanes e Not Available [facility] ([facility]) [address] [facility] [place], [address], 02/17/2025 06:09:22 02/12/2002/12/2025 HEPAT IC FUNCT ION PANEL (7) AST (SGOT) 31 IU/L 0-40 normal Not Available [facility] ([facility]) [address] [facility] [place], [address], 02/17/2025 06:09:22 02/12/20 25 02/12/2025 HEPAT IC FUNCT ION PANEL (7) ALT (SGPT) 27 IU/L 0-44 normal Not Available [facility] ([facility]) [address] [place], [address], 02/17/2025 06:09:22 02/12/20 25 02/17/2025 ALK PHOS ISOEN ZYME liver fraction: 64 % 13-88 Not Available [facility] ([facility]) [address] [place], [address], 02/17/2025 06:09:22 02/12/20 25 02/17/2025 ALK PHOS ISOEN ZYME bone fraction: 34 % 12-68 Not Available [facility] ([facility]) [address] [facility], [place], [address], 02/17/2025 06:09:22 02/12/20 25 02/17/2025 ALK PHOS ISOEN ZYME intestinal frac.: 2 % 0-18 Not Available [facility] ([facility]) [address] [place], [address], 02/17/2025 06:09:22 02/12/20 25 02/12/2025 ESR-W ES+CR P sedimentatio n rate-westerg angela 3 mm/HR 0-30 normal Not Available [facility] ([facility]) [address] [place], [address], 02/17/2025 06:09:23 02/12/2002/12/2025 ESR-W ES+CR P C-reactive protein, quant 1 mg/L 0-10 normal Not Available [facility] ([facility]) [address] [place], [address], 02/17/2025 06:09:23 02/12/20 25 02/12/2025 AFP, SERUM , TUMOR MARKE R AFP, serum, tumor marker 2.9 NG/mL 0.0-8. 4 normal Marissa Diagn ostic s Elect marissa milum inesc ence Immun oassa y (ECLI A) Value s obtai addi with diffe rent assay metho ds or kits canno t be used inter llanes eably . Resul ts canno t be inter prete d as absol [place] evide nce of the prese nce or absen ce of rowdylisette elodiaren disea se. This test is not inter preta ble in pregn ant femal es. Not Available [facility] ([facility]) [address] [place], [address], 02/17/2025 06:09:23 02/12/2002/12/2025 HIV AB/P2 4 AG WITH REFLE X HIV Ab/P24 Ag screen Non Reacti ve non reacti ve HIV-1 /HIV- 2 antib odies and HIV-1 p24 antig en were NOT detec kath. There is no labor atory evide nce of HIV infec tion. HIV Negat annetta Not Available [facility] ([facility]) [address] [facility], [place], [address], 02/17/2025 06:09:24 02/12/2002/12/2025 GGT WITH REFLE X AMYLA SE/LI PASE GGT 20 IU/L 0-65 normal Not Available [facility] ([facility]) [address] [place], [address], 02/17/2025 06:09:24 02/13/20 25 02/12/2025 UA/M W/RFL X CULTU RE, ROUTI NE specific gravity 1.015 1.005- 1.030 normal Not Available [facility] ([facility]) [address] [place], [address], 02/15/2025 12:05:59 02/13/20 25 02/12/2025 UA/M W/RFL X CULTU RE, ROUTI NE pH 7.0 5.0-7. 5 normal Not Available [facility] ([facility]) [address] [place], [address], 02/15/2025 12:05:59 02/13/20 25 02/12/2025 UA/M W/RFL X CULTU RELJI NE urine-color Yellow yellow Not Available [facility] ([facility]) [address] [place], [address], 02/15/2025 12:05:59 02/13/20 25 02/12/2025 UA/M W/RFL X CULTU RE, MARLENY NE appearance Clear clear Not Available [facility] ([facility]) [address] [place], [address], 02/15/2025 12:05:59 02/13/20 25 02/12/2025 UA/M W/RFL X CULTU RE ROUTI NE WBC esterase Negati ve negati ve Not Available [facility] ([facility]) [address] [place], [address], 02/15/2025 12:05:59 02/13/20 25 02/12/2025 UA/M W/RFL X CULTU REMARLENY NE protein Negati ve negati ve/tra ce Not Available [facility] ([facility]) [address] [place], [address], 02/15/2025 12:05:59 02/13/20 25 02/12/2025 UA/M W/RFL X CULTThang REMARLENY NE glucose Negati ve negati ve Not Available [facility] ([facility]) [address] [place], [address], 02/15/2025 12:05:59 02/13/20 25 02/12/2025 UA/M W/RFL X CULTU RE ROUTI NE ketones Negati ve negati ve Not Available [facility] ([facility]) [address] [place], [address], 02/15/2025 12:05:59 02/13/20 25 02/12/2025 UA/M W/RFL X CULTU RE, ROUTI NE occult blood Negati ve negati ve Not Available [facility] ([facility]) [address] [facility], [place], [address], 02/15/2025 12:05:59 02/13/20 25 02/12/2025 UA/M W/RFL X CULTU RE, ROUTI NE bilirubin Negati ve negati ve Not Available [facility] ([facility]) [address] [facility], [place], [address], 02/15/2025 12:05:59 02/13/2002/12/2025 UA/M W/RFL X CULTU RE, ROUTI NE urobilinogen ,semi-qn 0.2 mg/dL 0.2-1. 0 normal Not Available [facility] ([facility]) [address] [place], [address], 02/15/2025 12:05:59 02/13/20 25 02/12/2025 UA/M W/RFL X CULTU RE, ROUTI NE nitrite, urine Negati ve negati ve Not Available [facility] ([facility]) [address] [facility], [place], [address], 02/15/2025 12:05:59 02/13/20 25 02/12/2025 UA/M W/RFL X CULTU RE, ROUTI NE microscopic examination Commen t Micro scopi c follo ws if indic ated. Not Available [facility] ([facility]) [address] [facility], [place], [address], 02/15/2025 12:05:59 02/13/20 25 02/12/2025 UA/M W/RFL X CULTU RE, ROUTI NE microscopic examination See below: Micro scopi c was indic ated and was perfo rmed. Not Available [facility] ([facility]) [address] [place], [address], 02/15/2025 12:05:59 02/13/20 25 02/13/2025 UA/M W/RFL X CULTU RE, ROUTI NE WBC None seen /hpf 0 - 5 Not Available [facility] ([facility]) [address] [facility], [place], [address], 02/15/2025 12:05:59 02/13/20 25 02/13/2025 UA/M W/RFL X CULTU RE, ROUTI NE RBC 0-2 /hpf 0 - 2 Not Available [facility] ([facility]) [address] [facility], [place], [address], 02/15/2025 12:05:59 02/13/20 25 02/13/2025 UA/M W/RFL X CULTU RE, ROUTI NE epithelial cells (non renal) None seen /hpf 0 - 10 Not Available [facility] ([facility]) [address] [facility], [place], [address], 02/15/2025 12:05:59 02/13/20 25 02/13/2025 UA/M W/RFL X CULTU RE, ROUTI NE epithelial cells (renal) IS/IT PROJECT MANAGER Not Available [facility] ([facility]) [address] [facility], [place], [address], 02/15/2025 12:05:59 02/13/20 25 02/13/2025 UA/M W/RFL X CULTU RE ROUTI NE casts None seen /lpf none seen Not Available [facility] ([facility]) [address] [facility], [place], [address], 02/15/2025 12:05:59 02/13/20 25 02/13/2025 UA/M W/RFL X CULTU RE ROUTI NE cast type IS/IT PROJECT MANAGER Not Available [facility] ([facility]) [address] [facility], [place], [address], 02/15/2025 12:05:59 02/13/20 25 02/13/2025 UA/M W/RFL X CULTU RE, ROUTI NE crystals IS/IT PROJECT MANAGER Not Available [facility] ([facility]) [address] [facility], [place], [address], 02/15/2025 12:05:59 02/13/20 25 02/13/2025 UA/M W/RFL X CULTU RE, ROUTI NE crystal type IS/IT PROJECT MANAGER Not Available [facility] ([facility]) [address] [facility], [place], [address], 02/15/2025 12:05:59 02/13/20 25 02/13/2025 UA/M W/RFL X CULTU RE, ROUTI NE mucus threads IS/IT PROJECT MANAGER Not Available [facility] ([facility]) [address] [facility], [place], [address], 02/15/2025 12:05:59 02/13/20 25 02/13/2025 UA/M W/RFL X CULTU RE, ROUTI NE bacteria Modera te none seen/f ew abnormal Not Available [facility] ([facility]) [address] [facility], [place], [address], 02/15/2025 12:05:59 02/13/20 25 02/13/2025 UA/M W/RFL X CULTU RE, ROUTI NE yeast IS/IT PROJECT MANAGER Not Available [facility] ([facility]) [address] [facility], [place], [address], 02/15/2025 12:05:59 02/13/20 25 02/13/2025 UA/M W/RFL X CULTU RE, ROUTI NE trichomonas IS/IT PROJECT MANAGER Not Available [facility] ([facility]) [address] [facility], [place], [address], 02/15/2025 12:05:59 02/13/20 25 02/13/2025 UA/M W/RFL X CULTU RE, ROUTI NE comment IS/IT PROJECT MANAGER Not Available [facility] ([facility]) [address] [place], [address], 02/15/2025 12:05:59 02/13/20 25 02/13/2025 UA/M W/RFL X CULTU RE, ROUTI NE urinalysis reflex Commen t This speci men has refle xed to a Urine Cultu re. Not Available [facility] ([facility]) [address] [facility], [place], [address], 02/15/2025 12:05:59 02/13/20 25 02/15/2025 UA/M W/RFL X CULTU RE, ROUTI NE urine culture, routine Final report abnormal Not Available [facility] ([facility]) [address] [facility], [place], [address], 02/15/2025 12:05:59 02/13/20 25 02/15/2025 UA/M W/RFL [...] ng units per mL Not Available [facility] ([facility]) [address] [facility], [place], [address], 02/15/2025 12:05:59 02/13/20 25 02/15/2025 UA/M W/RFL [...] R Vanco mycin S Not Available [facility] ([facility]) [address] [facility], [place], [address], 02/15/2025 12:05:59 02/18/20 25 02/17/2025 fecal occul t blood , immun oassa y, stool RESULT positi ve Not Available In-Office Order Internal Use Only DO Not Attach Compendium DO Not Attach Compendium, Do Not Delete/merge, [id number] 02/11/2025 12:49:07 03/09/2003/09/2025 fecal occul t blood , immun oassa y, stool RESULT negati ve Not Available In-Office Order Internal Use Only DO Not Attach Compendium DO Not Attach Compendium, Do Not Delete/merge, [id number] 03/04/2025 08:28:09 02/14/2002/11/2025 XR, chest , 2 view No observ ation record ed. [facility] [address] [address], [place], [address], 02/17/2025 13:17:41 03/05/20 25 03/05/2025 CT, abdom [...] mGy*cm . COMPAR TRISTEN: None. FINDIN GS: Animal Shelter Supervisor View Findin gs, Lines and Tubes: None. [...] of L5-S1 with juan listhe sis and rigger chief ior decomp ressio n. Modera te chroni c appear ing compre ssion deform ity of L2. 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 IMPRES ELSA: No acute abnorm ality within the abdome n or pelvis . WSN: [id number] Orderi ng Physic gasper: Reagan Urbano Dictat ed By: Vidhya dennis MD, Dariusz Robles Dictat ed Date/T lake: 9:31 pm Review ed By: Vidhya dennsi MD, Dariusz Robles Signed By: Vidhya dennis MD, Dariusz Rboles Signed Date/T lake: 9:31 pm Transc ribed By: ISELA Transc ribed Date/T lake: 9:21 pm Patien t Class: Outpat ient [id number] [facility] (Outpt Imaging) [address], [place], [address], 03/18/2025 17:00:00 03/10/2002/22/2025 trans thora cic echoc ardio gram (TTE) compl ete (cont rast/ bubbl e/3D PRN) No observ ation record ed. [address] [facility] [address] [place] [address], [address], 03/10/2025 10:11:23 03/11/2002/22/2025 , echoc ardio gram No observ ation record ed. [address] [facility] [place] [address], [place], [address], 03/12/2025 07:35:33 03/25/20 ECG 12-le ad No observ ation record ed. [address] [facility] [address] [place], [address], 03/25/2025 18:24:07 Result Notes None recorded. 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 Active Emigdio Casas PA-C [address], [place], [address], [facility] 6 10:19:45 Eruption 420106356 Completed 12/03/2016 Yuki Sanches MA null, [facility] 7 09:33:51 General examinat ion of patient Completed 200812/31/2013 RECORDED 01/18/20 09 3:07PM BY RUBEN MORALES MA, BIRDIEATI ON/ADDEN DUM Emigdio Casas PA-C [address], [place], [address], [facility] 6 10:19:45 General examinat ion of patient Completed 200801/01/2014 RECORDED 01/18/20 09 3:07PM BY RUBEN MORALES MA, AMARJIT ON/ADDEN DUM Emigdio Casas PA-C [address] [address], [place], [address], [facility] 6 10:19:45 General examinat ion of patient Completed 200812/08/2013 RECORDED 01/18/20 09 3:07PM BY RUBEN MORALES MA, BIRDIEATI ON/ADDEN DUM Emigdio Casas PA-C [address], [place], [address], [facility] 6 10:19:45 Influenz a vaccine needed [id number] 06 Completed 201012/31/2013 DATE: 04/30/20 11; RECORDED 08/22/19 13 10:53AM BY AMARJIT EUGENE ON/ADDEN DUM Emigdio Casas PA-C [address], [place], [address], [facility] 6 10:19:45 Influenz a vaccine needed [id number] 06 Completed 201001/01/2014 DATE: 04/30/20 11; RECORDED 08/22/19 13 10:53AM BY AMARJIT EUGENE ON/ADDEN DUM Emigdio Augusto ELIAS-C [address], [facility] [place], [address], [facility] 6 10:19:45 Influenz a vaccine needed [id number] 06 Completed 201012/08/2013 DATE: 04/30/20 11; RECORDED 08/22/19 13 10:53AM BY AMARJIT EUGENE ON/ADDEN DUM Emigdio Casas PA-C [address], [facility] [place], [address], [facility] 6 10:19:45 Screenin g for malignan t neoplasm of colon Completed 201212/31/2013 RECORDED 08/22/19 13 10:53AM BY AMARJIT EUGENE ON/ADDEN DUM KODY Eugene, [facility] 7 09:33:55 Contact dermatit is [id number] Completed 201212/31/2013 RECORDED 08/22/19 13 10:55AM BY AMARJIT EUGENE ON/ADDEN DUM KODY Eugene, [facility] 7 09:34:01 Eruption [id number] Completed 201212/31/2013 RECORDED 08/22/19 13 10:53AM BY AMARJIT EUGENE ON/ADDEN DUM KODY Eugene, [facility] 7 09:33:51 Screenin g for malignan t neoplasm of colon Completed 201201/01/2014 RECORDED 08/22/19 13 10:53AM BY AMARJIT EUGENE ON/ADDEN DUM KODY Eugene, [facility] 7 09:33:55 Contact dermatit is [id number] Completed 201201/01/2014 RECORDED 08/22/19 13 10:55AM BY AMARJIT EUGENE ON/ADDEN DUM KODY Eugene, [facility] 7 09:34:01 Eruption [id number] Completed 201201/01/2014 RECORDED 08/22/19 13 10:53AM BY AMARJIT EUGENE ON/ADDEN DUM KODY Eugene, [facility] 7 09:33:51 Contact dermatit is [id number] Completed 201212/08/2013 RECORDED 08/22/19 13 10:55AM BY AMARJIT EUGENE ON/ADDEN DUM KODY Eugene, [facility] 7 09:34:01 Eruption [id number] Completed 201212/08/2013 RECORDED 08/22/19 13 10:53AM BY AMARJIT EUGENE ON/ADDEN DUM KODY Eugene, [facility] 7 09:33:51 Rhabdomy olysis [id number] Completed 201212/08/2013 RECORDED 08/22/19 13 10:53AM BY AMARJIT EUGENE ON/ADDEN DUM Aracely paul, [facility] 9 10:22:46 Adult health examinat ion Completed 201212/31/2013 IMPRESSI ON: EXAM TODAY, DOING GREAT, IS ACTIVE SCREENIN G UTD, WILL GET COLONOSC OPY; RECORDED 02/05/20 13 10:37AM BY AMARJIT EUGENE ON/ADDEN DUM KODY Eugene, [facility] 7 09:45:31 Adult health examinat ion Completed 201201/01/2014 IMPRESSI ON: EXAM TODAY, DOING GREAT, IS ACTIVE SCREENIN G UTD, WILL GET COLONOSC OPY; RECORDED 02/05/20 13 10:37AM BY AMARJIT EUGENE ON/ADDEN DUM KODY Eugene, [facility] 7 09:45:31 Adult health examinat ion Completed 201212/08/2013 IMPRESSI ON: EXAM TODAY, DOING GREAT, IS ACTIVE SCREENIN G UTD, WILL GET COLONOSC OPY; RECORDED 02/05/20 13 10:37AM BY AMARJIT EUGENE ON/ADDEN DUM [facility] 09:[facility]:31 Active or passive immuniza tion Completed 201312/31/2013 RECORDED 06/29/19 14 9:09AM BY ARACELY Najera MD, OFFICE VISIT Emigdio Casas PA-C [address], [place], [address], [facility] 6 10:19:45 Psychose xual dysfunct ion associat ed with inhibite d libido 393601205 Completed 201312/31/2013 RECORDED 06/29/19 14 8:37AM BY AMARJIT EUGENE ON/ADDEN DUM Emigdio Casas PA-C [address], [place], [address], [facility] 6 10:19:45 Active or passive immuniza tion Completed 201301/01/2014 RECORDED 06/29/19 14 9:09AM BY ARACELY Najera MD, OFFICE VISIT Emigdio Casas PA-C [address], [place], [address], [facility] 6 10:19:45 Psychose xual dysfunct ion associat ed with inhibite d libido 152402036 Completed 201301/01/2014 RECORDED 06/29/19 14 8:37AM BY AMARJIT EUGENE ON/ADDEN DUM Emigdio Casas PA-C [address], [place], [address], [facility] 6 10:19:45 Active or passive immuniza tion Completed 201312/08/2013 RECORDED 06/29/19 14 9:09AM BY ARACELY Najera MD, OFFICE VISIT Emigdiowyatt Casas PA-C [address] [facility] [address], [place], [address], [facility] 6 10:19:45 Psychose xual dysfunct ion associat ed with inhibite d libido 635517609 Completed 201312/08/2013 RECORDED 06/29/19 14 8:37AM BY AMARJIT EUGENE ON/ADDEN DUM Emigdio Casas PA-C [address] [facility] [address], [place], [address], [facility] 6 10:19:45 Screenin g for malignan t neoplasm of colon Completed 201312/08/2013 RECORDED 07/28/19 14 8:05AM BY AMARJIT EUGENE ON/ADDEN DUM Yuki Sanches MA null, [facility] 7 09:33:55 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 WILL TRY TO CHANGE TO TEMAZAPA M. SEE IF CAN GET BY THE INSURANC E ISSUES; RECORDED 08/18/19 14 8:10AM BY AMARJIT JEAN ON/ADDEN DUM Emigdio ELIAS-C [address], [place], [address], [facility] 6 10:19:45 Measurem ent finding Completed 201312/31/2013 IMPRESSI ON: HIGHEST WAS 100, THEN 550, HAS NOT BEEN CHECKED IN MONTHS, NOT ON ANY CHOLESTE ROL MEDS, CHECK CPK; RECORDED 08/18/19 14 8:10AM BY AMARJIT JEAN ON/ADDEN DUM Emigdio Casas PA-C [address], [place], [address], [facility] 6 10:19:45 Abnormal involunt chucky movement [id number] Completed 201312/31/2013 ALLAI ON: EMG THIS WEEK; RECORDED 08/18/19 14 8:10AM BY AMARJIT JEAN ON/ADDEN DUM Emigdio ELIAS-C [address], [place], [address], [facility] 6 10:19:45 Malaise and fatigue 594549377 Completed 201312/31/2013 RESOLVED DATE: 08/18/19 14; RECORDED 08/18/19 14 8:10AM BY AMARJIT JEAN ON/ADDEN DUM Emigdio ELIAS-C [address], [place], [address], [facility] 6 10:19:45 Pure hypercho lesterol emia 032035445 Completed 201312/31/2013 RECORDED 08/18/19 14 8:10AM BY AMARJIT JEAN ON/ADDEN DUM Emigdio Casas PA-C [address], [place], [address], [facility] 6 10:19:45 Insomnia [id number] Completed 201312/31/2013 IMPRESSI ON: DOWN TO ONE TEMAZEPA M FOR SLEEP; RECORDED 08/18/19 14 8:10AM BY BIRDIE JEANATI ON/ADDEN DUM [facility] 8 08:33:08 Fibromyo sitis 41563639 Completed 201312/31/2013 RECORDED 08/18/19 14 8:10AM BY BIRDIE JEANATI ON/ADDEN DUM Emigdio Casas PA-C [address], [place], [address], [facility] 6 10:19:45 Immuniza tion refused Completed 201312/31/2013 RECORDED 08/18/19 14 8:10AM BY BIRDIE JEANATI ON/ADDEN DUM Emigdio ELIAS-C [address], [place], [address], [facility] 6 10:19:45 Disorder of skin and/or subcutan eous tissue 94776950 Completed 201312/31/2013 IMPRESSI ON: RIGHT LATERAL THIGH REFER TO DERM FOR EVAL, HE WILL SET UP; RECORDED 08/18/19 14 8:10AM BY AMARJIT JEAN ON/ADDEN DUM Emigdio ELIAS-C [address] [facility] [address], [place], [address], [facility] 6 10:19:45 Dermatop hytosis of the perianal area Completed 201312/31/2013 RECORDED 08/18/19 14 8:10AM BY AMARJIT JEAN ON/ADDEN DUM Emigdio Casas PA-C [address] [facility] [address], [place], [address], [facility] 6 10:19:45 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 WILL TRY TO CHANGE TO TEMAZAPA M. SEE IF CAN GET BY THE INSURANC E ISSUES; RECORDED 08/18/19 14 8:10AM BY AMARJIT JEAN ON/GAURAV ELIAS-C [address], [place], [address], [facility] 6 10:19:45 Measurem ent finding Completed 201301/01/2014 IMPRESSI ON: HIGHEST WAS 100, THEN 550, HAS NOT BEEN CHECKED IN MONTHS, NOT ON ANY CHOLESTE ROL MEDS, CHECK CPK; RECORDED 08/18/19 14 8:10AM BY AMARJIT JEAN ON/GAURAV EMERSONC [address], [place], [address], [facility] 6 10:19:45 Abnormal involunt chucky movement 153832823 Completed 201301/01/2014 IMPRESSI ON: EMG THIS WEEK; RECORDED 08/18/19 14 8:10AM BY AMARJIT JEAN ON/GAURAV EMERSONC [address], [place], [address], [facility] 6 10:19:45 Malaise and fatigue 528572973 Completed 201301/01/2014 RESOLVED DATE: 08/18/19 14; RECORDED 08/18/19 14 8:10AM BY BIRDIE JEANATI ON/ADDEN DUM Emigdio ELIAS-C [address] [facility] [address], [facility] [place], [address], [facility] 6 10:19:45 Pure hypercho lesterol emia 062678608 Completed 201301/01/2014 RECORDED 08/18/19 14 8:10AM BY BIRDIE JEANATI ON/ADDEN DUM Emigdio ELIAS-C [address] [facility] [address], [place], [address], [facility] 6 10:19:45 Insomnia 892234344 Completed 201301/01/2014 IMPRESSI ON: DOWN TO ONE TEMAZEPA M FOR SLEEP; RECORDED 08/18/19 14 8:10AM BY AMARJIT JEAN ON/ADDEN DUM Wendy Key MA null, [facility] 8 08:33:08 Fibromyo sitis 07812543 Completed 201301/01/2014 RECORDED 08/18/19 14 8:10AM BY BIRDIE JEANATI ON/ADDEN DUM Emigdio ELIAS-C [address] [facility] [address], [place], [address], [facility] 6 10:19:45 Immuniza tion refused Completed 201301/01/2014 RECORDED 08/18/19 14 8:10AM BY AMARJIT JEAN ON/ADDEN DUM Emigdio ELIAS-C [address] [facility] [address], [place], [address], [facility] 6 10:19:45 Disorder of skin and/or subcutan eous tissue 98876452 Completed 201301/01/2014 IMPRESSI ON: RIGHT LATERAL THIGH REFER TO DERM FOR EVAL, HE WILL SET UP; RECORDED 08/18/19 14 8:10AM BY AMARJIT JEAN ON/ADDPEDRO ELIAS-C [address], [place], [address], [facility] 6 10:19:45 Dermatop hytosis of the perianal area Completed 201301/01/2014 RECORDED 08/18/19 14 8:10AM BY AMARJIT JEAN ON/ADDEN MAYTE Casas PA-C [address], [place], [address], [facility] 6 10:19:45 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 WILL TRY TO CHANGE TO TEMAZAPA M. SEE IF CAN GET BY THE INSURANC E ISSUES; RECORDED 08/18/19 14 8:10AM BY AMARJIT JEAN ON/GAURAV ELIAS-C [address], [place], [address], [facility] 6 10:19:45 Measurem ent finding Completed 201312/08/2013 IMPRESSI ON: HIGHEST WAS 100, THEN 550, HAS NOT BEEN CHECKED IN MONTHS, NOT ON ANY CHOLESTE ROL MEDS, CHECK CPK; RECORDED 08/18/19 14 8:10AM BY AMARJIT JEAN ON/ADDEN DUM Emigdio Casas PA-C [address], [place], [address], [facility] 6 10:19:45 Abnormal involunt chucky movement 026809036 Completed 201312/08/2013 IMPRESSI ON: EMG THIS WEEK; RECORDED 08/18/19 14 8:10AM BY AMARJIT JEAN ON/ADDEN DUM Emigdio Casas PA-C [address], [place], [address], [facility] 6 10:19:45 Malaise and fatigue 011391601 Completed 201312/08/2013 RESOLVED DATE: 08/18/19 14; RECORDED 08/18/19 14 8:10AM BY AMARJIT JEAN ON/ADDEN DUM Emigdio Casas PA-C [address] [facility] [address], [place], [address], [facility] 6 10:19:45 Pure hypercho lesterol emia 200758192 Completed 201312/08/2013 RECORDED 08/18/19 14 8:10AM BY AMARJIT JEAN ON/ADDEN DUM Emigdio Casas PA-C [address], [place], [address], [facility] 6 10:19:45 Insomnia 940731613 Completed 201312/08/2013 IMPRESSI ON: DOWN TO ONE TEMAZEPA M FOR SLEEP; RECORDED 08/18/19 14 8:10AM BY AMARJIT JEAN ON/ADDEN DUM Wendy Key MA null, [facility] 8 08:33:08 Fibromyo sitis 14505447 Completed 201312/08/2013 RECORDED 08/18/19 14 8:10AM BY AMARJIT JEAN ON/ADDEN DUM Emigdio Tellezden PA-C [address], [place], [address], [facility] 6 10:19:45 Immuniza tion refused Completed 201312/08/2013 RECORDED 08/18/19 14 8:10AM BY AMARJIT JEAN ON/ADDEN DUM Emigdio Casas PA-C [address] [facility] [address], [place], [address], [facility] 6 10:19:45 History of clinical finding in subject [id number] Completed 201312/03/2016 RECORDED 08/18/19 14 8:11AM BY NATALIE PATINO I, OFFICE VISIT Yuki Sanches MA null, [facility] 7 09:34:07 Disorder of skin and/or subcutan eous tissue 09765309 Completed 201312/08/2013 IMPRESSI ON: RIGHT LATERAL THIGH REFER TO DERM FOR EVAL, HE WILL SET UP; RECORDED 08/18/19 14 8:10AM BY AMARJIT JAEN ON/ADDEN DUM Emigdio Casas PA-C [address] [facility] [address], [place], [address], [facility] 6 10:19:45 Dermatop hytosis of the perianal area Completed 201312/08/2013 RECORDED 08/18/19 14 8:10AM BY AMARJIT JEAN ON/ADDEN DUM Emigdio Casas PA-C [address] [facility] [address], [place], [address], [facility] 6 10:19:45 Vitamin D deficien 51046859 Completed 201312/08/2013 RECORDED 08/18/19 14 8:10AM BY AMARJIT JEAN ON/ADDEN DUM KODY Varela, [facility] 8 08:33:24 Adult health examinat ion Completed 201306/04/2016 IMPRESSI ON: PT IS DOING WELL, ACTIVE, EATS WELL; RECORDED 11/13/19 14 9:23AM BY ARACELY Najera MD, OFFICE VISIT KODY Eugene, [facility] 7 09:45:31 Screenin g for malignan t neoplasm of colon Completed 201312/03/2016 RECORDED 11/13/19 14 1:55PM BY DARY MICHAEL, HISTORIC AL SUMMARY KODY Eugene, [facility] 7 09:33:55 Overweig ht [id number] Completed 201312/30/2017 RECORDED 11/13/19 14 8:52AM BY RUBEN MORALES MA, OFFICE VISIT KODY Varela, [facility] 8 08:33:12 Degenera tion of interver tebral disc Completed 201312/03/2016 RECORDED 11/13/19 14 8:44AM BY RUBEN MORALES MA, OFFICE VISIT KODY Eugene, [facility] 7 09:34:10 Contact dermatit is [id number] Completed 201312/03/2016 IMPRESSI ON: ARMS TX BELOW; RECORDED 11/13/19 14 8:44AM BY RUBEN MORALES MA, OFFICE VISIT KODY Eugene, [facility] 7 09:34:01 [facility]ia l hyperten elsa 95103736 Active 2013 KODY Varela, [facility] 8 08:33:38 Hyperlip idemia 64635966 Completed 201312/11/2018 [facility] 10:22:52 Insomnia 862988186 Active 2013 KODY Varela, [facility] 8 08:33:08 Tobacco user 720395113 Completed 201312/08/2015 RECORDED 11/13/19 14 8:56AM BY RUBEN MORALES MA, OFFICE VISIT KODY Pleitez, [facility] 6 08:54:33 Rhabdomy olysis 529752522 Completed 201312/11/2018 Aracely melendez [facility] 9 10:22:46 Vitamin D deficien cy 24878897 Active 2013 KODY Varela, [facility] 8 08:33:24 Ex-smoke r 6723802 Active 2015 KODY Pleitez, [facility] 6 08:54:38 Hyperten elsa monitori ng status 166244132 Completed 202108/21/2023 disenrol led MADELEINE JONES MD [address] [address], [facility] [place] [place], [address], [facility] 4 09:09:40 Lumbar radiculo jaja 129621600 Active 2022 MADELEINE JONES MD [address] [address], [place], [address], [facility] 3 12:43:19 Heart murmur 56700304 Active 2023 MADELEINE JONES MD [address] [address], [place], [address], [facility] 4 14:54:21 Foot-asif p 2720745 Active 2023 MADELEINE JONES MD [address] [address], [facility] [place], [address], [facility] 4 16:27:46 Compress ion fracture of L2 42327395228 925805 Active 2024 Devon Maldonado MD [address], [place], [address], [facility] 5 17:24:07 Problem Notes None recorded. Procedures Surgical History Date Name Laterality Status Provider Name and Address Organization Details Recorded Time 02/13/20 25 FOBT completed Ruben israel MA [facility] 02/12/2025 16:27:11 12/26/19 25 injection of sacroiliac joint completed Jaky Flores [facility] 12/25/2024 10:43:47 08/25/19 25 Advanced Care Planning completed MADELEINE JONES MD [address] [facility] [address], [place], [address], [facility] 08/24/2024 09:39:51 08/22/19 24 Advanced Care Planning completed Sun Callejas [facility] 08/23/2023 10:18:50 06/20/19 24 lumbar spinal fusion completed Jkay Flores [facility] 06/20/2023 13:52:48 06/20/19 24 decompression of lumbar spine completed Jaky Flores [facility] 06/20/2023 13:52:57 09/26/19 23 laminectomy completed Jaky Flores [facility] 09/25/2022 12:48:32 06/22/19 21 Six-Item Cognitive Test completed Charo Morgan MA [facility] 06/22/2020 12:56:05 01/08/20 20 injection completed Stephanie Dover [facility] 01/15/2020 15:21:45 06/11/19 20 Mini-Cog Test completed Yuki Sanches MA [facility] 06/11/2019 09:03:24 06/09/19 19 Mini-Cog Test completed Yuki Sanches MA [facility] 06/09/2018 10:10:59 06/06/19 18 Fall Risk Assessment completed Yuki Sanches MA [facility] 06/06/2017 08:42:17 06/06/19 18 Mini-Cog Test completed Yuki Sanches MA [facility] 06/06/2017 08:42:47 06/04/19 17 Fall Risk Assessment completed Yuki Sanches MA [facility] 06/04/2016 09:49:43 06/04/19 17 Mini-Cog Test completed Yuki Sanches MA [facility] 06/04/2016 09:49:04 06/04/19 17 Advanced Care Planning completed Aracely lockwood [facility] 06/04/2016 10:21:57 06/03/19 16 Fall Risk Assessment completed Yuki Sanches MA [facility] 06/03/2015 09:06:29 06/03/19 16 Mini-Cog Test completed Yuki Sanches MA [facility] 06/03/2015 09:07:31 07/29/19 14 Colonoscopy completed Lynne Rachel [facility] 01/23/2022 15:48:21 Imaging Results None recorded. Procedure Notes None recorded. Medical Equipment None Reported. Allergies Allergen ID Allergen Name Allergen Category Reaction Reaction Severity Criticality Documentation Date Start Date Code Code System Note Provider Name and Address Organization Details Recorded Time 1213 Product containin g angiotens in-conver ting enzyme inhibitor (product) medicatio n myalgias (muscle pain) Not available Not available 12/08/20132013 47637 009 SNOMED MUSCL ES SPASM S KODY Pleitez [facility] 6 08:53:48 1214 Lipitor medicatio n other Not available Not available 12/08/20132013 08059 5 RxNorm RHABD OMYOL YSIS KODY Pleitez [facility] 6 08:53:53 12793 temazepam medicatio n other Not available Not available 12/08/2015 28430 RxNorm night smith KODY Pleitez, [facility] 6 08:58:04 97141 Repatha medicatio n hives Not available [facility] 12/07/2024 89130 96 RxNorm KODY Eugene, [facility] 5 09:50:54 Medications Name Sig Start [...] REFILL REQUEST; THIS ORDER DISCONTI NUED PER Recovr-SPA N. Not Available Not Available Not Available [...] Updated DateTime 5 175.26 cm 26.9 kg/m2 23626.9 1 g 98 % 77 /min 98.2 [degF] 124/72 mm[Hg] Yuki Sanches MA [facility] 5 13:33:32 Social History Question Answer Notes LastModified by Organizat ion Details LastModified Time Tobacco Smoking Status Former Smoker Yuki Sanches MA null, [facility] 05/13/2014 08:48:14 Do You Have An Advance Directive? Yes Jing Brown Information not available 12/08/2015 Is Blood Transfusion [...] COVID-19 While That Person Was Ill? No [email or web address] Information not available 12/02/2019 Have You Been To An Area Known To Be High Risk For COVID-19? No [email or web address] Information not available 12/02/2019 What Type Of Diet Are You Following? REGULAR [email or web address] Information not available 05/13/2014 Which Illicit Or Recreational Drugs Have You Used? None Information not available 12/08/2015 When Did You Quit Smoking? 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 No [email or web address] Information not available 12/02/2019 Are You Or Anyone In Your Household A Health Care Provider Or Emergency Responder? No [email or web address] Information not available 12/02/2019 To The Best Of Your Knowledge Have You Been In Close Proximity To Any Individual Who Tested Positive For COVID-19? No [email or web address] Information not available 12/02/2019 *AWV ONLY* Are You Presently Prescribed Opioid Medication By PCP Or Specialist? If YES -Provider Assess The Benefit For Other, Non-opioid Pain Therapies Instead, Even If The Patient Does Not Have OUD But Is Possibly At Risk. No [email or web address] Information not available 06/23/2021 Have You Recently Traveled To A COVID-19 High Risk Area Or Gathering In The Last 10 Days? No [email or web address] Information not available 06/22/2020 What Was The Date Of Your Most Recent Tobacco Screening? 08/24/2024 [email or web address] Information not available 08/24/2024 How Many Children Do You Have? 2 [email or web address] Information not available 05/13/2014 What Is Your Current Pack Years? 10-19packye ars [email or web address] Information not available 06/23/2021 Do You Use Protection During Sex? No Information not available 12/08/2015 Seat Belts Used Routinely Yes [email or web address] Information not available 05/13/2014 Are You Sexually Active? Yes Information not available 12/08/2015 Smoke Alarm In Home Yes [email or web address] Information not available 05/13/2014 Are You Passively Exposed To Smoke? No Information no t available 12/08/2015 General Stress Level Medium [email or web address] Information not available 08/24/2024 Do You Use Sunscreen Routinely? Yes [email or web address] Information not available 05/13/2014 How Many Years Have You Smoked Tobacco? 25 [email or web address] Information not available 05/13/2014 Sex: Unknown Functional Status Question Answer Note LastModified by Organizat ion Details LastModified Time What is your level of alcohol consumption? Occasional [email or web address] Information not available 05/13/2014 Do you or have you ever used smokeless tobacco? Never used smokeless tobacco [email or web address] Information not available 06/22/2020 Are you currently employed? No retired Information not available 12/08/2015 Are you able to walk independently without assistance or assistive devices? YESWOREST [email or web address] Information not available 06/23/2021 Are you able to care for yourself independently? 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 Never used electronic cigarettes [email or web address] Information not available 06/22/2020 What is your exercise level? Moderate golf 4 x week Information not available 12/08/2015 Mental Status None recorded. Family History Relationship Description Onset Age of this Age Resolved Age Notes LastModified by Organization Details LastModified Time Brother Carcinoma in situ of colon [email or web address] Not available 09:31:12 Notes:No breast cancer Medical History Condition Response Muscle, Joint, or Bone Problems Y Eczema Y Hypertension Y High Cholesterol Y Immunizations Vaccine Type Date Status Note Provider Name and Address Organization Details Recorded Time Tdap 007 completed Not Available [facility] 12/08/2013 13:26:33 pneumococcal polysaccharide PPV23 014 completed Not Available [facility] 12/08/2013 13:26:33 Pneumococcal conjugate PCV 13 015 completed KODY [facility] 01/08/2022 10:10:56 Td (adult), 2 Lf tetanus toxoid, preservative free, adsorbed 019 completed KODY [facility] 01/08/2022 10:10:56 zoster recombinant 024 cancelled patient objection MADELEINE JONES MD [address] [address], [place], [address], [facility] 08/22/2023 09:36:05 Influenza, high-dose, trivalent, PF 09/17/2 024 cancelled patient objection MADELEINE JONES MD [address] [facility] [address], [place], [address], [facility] 02/11/2024 11:17:45 Past Encounters Encounter ID Performer Location Encounter Start Date Encounter Closed Date Diagnosis/Indication Diagnosis SNOMED-CT Code Diagnosis ICD10 Code Diagnosis IMO Codes Diagnosis Note [id number] MADELEINE JONES MD Main Office [address] [facility] [address] [facility] [place] [id number] 02/11/2025 11:04:48 02/11/2025 12:15:39 Alkaline phosphatase above reference range 767193431 R74.8 003810 - noted to be 122- will check repeat Unintentio nal weight loss 383945596 R63.4 744804 - has lost 27lbs since 03/2024- associated with decrease appetite and decreased portions- ordered chest x-ray- ultrasound sound gall-bladd er ordered due to intermitte nt right sided abdominal pain was normal- ordered UA, inflammato ry markers, liver panel and BMP- will check HIV and hepatitis panel- ordered FOBT- ordered for CT abdomen and pelvis Idiopathic hypotension 946390522 I95.0 159728 - BP has been trending down- pt had been experienci ng light-head iness especially when changing positions- BP today is 96/57- stopped amlodipine 5mg QD- c/w metoprolol tartrate 25mg BID Hypercholesterolemia 136 06112 E78.00 87277 - improved- ASCVD score of 29%- lipid [...] why cardiologi does not just prescribe medication [id number] Tony Mas MD Main Office [address] [facility] [address] [facility] [place] [place] [id number] 02/12/2025 14:54:46 02/12/2025 16:23:25 [id number] MADELEINE JONES MD Main Office [address] [facility] [place], [place] [id number] 03/09/2025 13:03:10 03/09/2025 14:05:20 Unintentional weight loss 756440809 R63.4 246805 - has lost 27lbs since 03/2024- associated [...] boost Alkaline p hosphatase above reference range 263549462 R74.8 745291 - resolved on repeat testing- normal AFP, GGT and alk phos isoenzymes Hypercholesterolemia 136 61001 E78.00 23572 - improved- ASCVD score of 29%- lipid [...] PA for medicine done 03/09 Essential hypertension 38884355 I10 - at goal- BP today is [...] a reaction to a medicine you are taking.>Gallardo ve headaches that keep coming back (recurring ).>Feel dizzy.>Hav e swelling in your ankles.>Gallardo ve trouble with your vision. Health Concerns Section Related Observation LastModified by Organization Detai ls LastModified Time None Recorded Concern Status LastModified by Organization Details LastModified Time None Recorded Payers Encounter Date Sequence Insurance Name Policy Number Policy Patel Covered Member ID Patel Member ID Guarantor Name 03/09/2025 1 [employer] - MEDICARE ADVANTAGE PLAN (MEDICARE REPLACEMENT HMO) [id number] Neil Brown [id number] Neil Brown Notes Date Note Type Note Provider Name and Address Organization Details Recorded Time 5 text/html HyperlipidemiaReported by PatientHPIFor type of [...] nexletol. PA was not yet done by [facility] as noted in the HPI Neil Stephanie is a 79 year old M who [...] History of Headaches- no MADELEINE JONES MD [address] [address], [place], [address], [facility] 03/09/2025 16:12:22
--- OUTSIDE RECORDS SUMMARY | 2025-04-16 10:19 | XMS_ITS | Continuity of Care Document ---
Author Organization [facility], Main Office Address [address] [facility] [address] [place] [address] Care Team Providers Care Abstractor Name Role Phone SY MISHA Manager Highway NATALIE SANFORD Manager Highway JING MCKINNEY Referring Provider [phone] ERIC HANNON Hand Surgeon NAYA LARSON Orthopedic Surgeon DOMINGO TRUONG Critical Care Specialist [phone] MIKI DOUGLAS Primary Care Provider SUN PEREA Referring Provider [phone] [facility] Referring Provider Assessment No assessment recorded. Plan of Treatment Reminders Order Date Submit Date Provider Last Modified By Organization Details Last Modified Time Details Appointments FOLLOW UP 2025 11:30A M MIKI DOUGLAS MD Not available Not available Not available Lab urinalysi s complete, reflex culture 2024 025 ALANNA [facility] (Centralized Electronic Ordering - All Locations), Patient Can Go To The Location Of Their Choice, 02/15/2025 12:05:59 inflammat ion panel, serum or plasma 2024 025 ALANNA [facility] (Centralized Electronic Ordering - All Locations), Patient Can Go To The Location Of Their Choice, 02/17/2025 06:09:23 HIV 1 + 2, meaningfu l use set 2024 025 ALANNA [facility] (Centralized Electronic Ordering - All Locations), Patient Can Go To The Location Of Their Choice, 02/17/2025 06:09:24 hepatic function panel, serum 2024 025 ALANNA [facility] (Centralized Electronic Ordering - All Locations), Patient Can Go To The Location Of Their Choice, 02/17/2025 06:09:22 BMP, serum or plasma 2024 025 ALANNA [facility] (Centralized Electronic Ordering - All Locations), Patient Can Go To The Location Of Their Choice, 02/17/2025 06:09:21 fecal occult blood, immunoass ay, stool 2024 025 ALANNA In-Office Order, Internal Use Only DO Not Attach Compendium DO Not Attach Compendium, Do Not Delete/merge, [id number] 02/12/2025 15:13:25 hepatitis panel (A+B+C), acute, serum 2024 025 ALANNA [facility] (Centralized Electronic Ordering - All Locations), Patient Can Go To The Location Of Their Choice, 02/11/2025 12:49:55 gamma-glu tamyl transfera se (ggt), serum 2024 025 ALANNA [facility] (Centralized Electronic Ordering - All Locations), Patient Can Go To The Location Of Their Choice, 02/17/2025 06:09:24 afp (alpha-fe toprotein ) tumor marker, serum or plasma 2024 025 ALANNA [facility] (Centralized Electronic Ordering - All Locations), Patient Can Go To The Location Of Their Choice, 02/17/2025 06:09:23 alkaline phosphata se isoenzyme s, serum or plasma 2024 025 ALANNA [facility] (Centralized Electronic Ordering - All Locations), Patient Can Go To The Location Of Their Choice, 02/17/2025 06:09:22 Referral None recorded. Procedures None recorded. Surgeries None recorded. Imaging XR, chest, 2 view 2024 025 ALANNA Not available 02/13/2025 10:02:12 CT, abdomen + pelvis, w/ contrast - pt having rapid weight loss and decreased appetite ordered to r/out mass 2024 025 [facility] (Ct Scan), [address], [place], [address], 03/05/2025 21:34:16 Medication Orders Nexletol 180 mg tablet 2024 025 [id number], [address] [place], [place], [id number], 02/11/2025 12:56:58 Patient TargetsNo targets recorded. Patient InstructionsNo instructions recorded. Reason for Referral None Reported. Results Created Date Observation Date Name Description Value Unit Range Abnormal Flag Note LastModifiedBy Organization Detail LastModifiedTime 02/12/2002/15/2025 CBC WITH DIFFE RENTI AL/PL ATELE T WBC COMMEN T x10e3 /uL Test not perfo rmed due to the age of this speci men. Not Available [facility] ([facility]) [address] [place], [address], 02/16/2025 08:07:32 02/12/2002/15/2025 CBC WITH DIFFE RENTI AL/PL ATELE T RBC TNP Test not perfo rmed Not Available [facility] ([facility]) [address] [place], [address], 02/16/2025 08:07:32 02/12/2002/15/2025 CBC WITH DIFFE RENTI AL/PL ATELE T hemoglobin TNP Test not perfo rmed Not Available [facility] ([facility]) [address] [place], [address], 02/16/2025 08:07:32 02/12/2002/15/2025 CBC WITH DIFFE RENTI AL/PL ATELE T hematocrit TNP Test not perfo rmed Not Available [facility] ([facility]) [address] [place], [address], 02/16/2025 08:07:32 02/12/20 25 02/15/2025 CBC WITH DIFFE RENTI AL/PL ATELE T MCV MIXING PICKER TENDER Not Available [facility] ([facility]) [address] [facility], [place], [address], 02/16/2025 08:07:32 02/12/20 25 02/15/2025 CBC WITH DIFFE RENTI AL/PL ATELE T MCH MIXING PICKER TENDER Not Available [facility] ([facility]) [address] [facility], [place], [address], 02/16/2025 08:07:32 02/12/20 25 02/15/2025 CBC WITH DIFFE RENTI AL/PL ATELE T MCHC MIXING PICKER TENDER Not Available [facility] ([facility]) [address] [facility], [place], [address], 02/16/2025 08:07:32 02/12/20 25 02/15/2025 CBC WITH DIFFE RENTI AL/PL ATELE T RDW MIXING PICKER TENDER Not Available [facility] ([facility]) [address] [facility], [place], [address], 02/16/2025 08:07:32 02/12/20 25 02/15/2025 CBC WITH DIFFE RENTI AL/PL ATELE T platelets TNP Test not perfo rmed Not Available [facility] ([facility]) [address] [facility], [place], [address], 02/16/2025 08:07:32 02/12/20 25 02/15/2025 CBC WITH DIFFE RENTI AL/PL ATELE T neutrophils TNP Test not perfo rmed Not Available [facility] ([facility]) [address] [place], [address], 02/16/2025 08:07:32 02/12/20 25 02/15/2025 CBC WITH DIFFE RENTI AL/PL ATELE T lymphs TNP Test not perfo rmed Not Available [facility] ([facility]) [address] [place], [address], 02/16/2025 08:07:32 02/12/20 25 02/15/2025 CBC WITH DIFFE RENTI AL/PL ATELE T monocytes TNP Test not perfo rmed Not Available [facility] ([facility]) [address] [facility], [place], [address], 02/16/2025 08:07:32 02/12/20 25 02/15/2025 CBC WITH DIFFE RENTI AL/PL ATELE T eos TNP Test not perfo rmed Not Available [facility] ([facility]) [address] [place], [address], 02/16/2025 08:07:32 02/12/20 25 02/15/2025 CBC WITH DIFFE RENTI AL/PL ATELE T basos MIXING PICKER TENDER Not Available [facility] ([facility]) [address] [facility], [place], [address], 02/16/2025 08:07:32 02/12/20 25 02/15/2025 CBC WITH DIFFE RENTI AL/PL ATELE T immature cells MIXING PICKER TENDER Not Available [facility] ([facility]) [address] [facility], [place], [address], 02/16/2025 08:07:32 02/12/20 25 02/15/2025 CBC WITH DIFFE RENTI AL/PL ATELE T neutrophils (absolute) MIXING PICKER TENDER Not Available [facility] ([facility]) [address] [place], [address], 02/16/2025 08:07:32 02/12/20 25 02/15/2025 CBC WITH DIFFE RENTI AL/PL ATELE T lymphs (absolute) TNP Test not perfo rmed Not Available [facility] ([facility]) [address] [place], [address], 02/16/2025 08:07:32 02/12/20 25 02/15/2025 CBC WITH DIFFE RENTI AL/PL ATELE T monocytes(ab solute) MIXING PICKER TENDER Not Available [facility] ([facility]) [address] [facility], [place], [address], 02/16/2025 08:07:32 02/12/20 25 02/15/2025 CBC WITH DIFFE RENTI AL/PL ATELE T eos (absolute) TNP Test not perfo rmed Not Available [facility] ([facility]) [address] [place], [address], 02/16/2025 08:07:32 02/12/20 25 02/15/2025 CBC WITH DIFFE RENTI AL/PL ATELE T baso (absolute) TNP Test not perfo rmed Not Available [facility] ([facility]) [address] [facility], [place], [address], 02/16/2025 08:07:32 02/12/20 25 02/15/2025 CBC WITH DIFFE RENTI AL/PL ATELE T immature granulocytes MIXING PICKER TENDER Not Available [facility] ([facility]) [address] [place], [address], 02/16/2025 08:07:32 02/12/20 25 02/15/2025 CBC WITH DIFFE RENTI AL/PL ATELE T immature grans (abs) MIXING PICKER TENDER Not Available [facility] ([facility]) [address] [place], [address], 02/16/2025 08:07:32 02/12/20 25 02/15/2025 CBC WITH DIFFE RENTI AL/PL ATELE T NRBC MIXING PICKER TENDER Not Available [facility] ([facility]) [address] [place], [address], 02/16/2025 08:07:32 02/12/20 25 02/15/2025 CBC WITH DIFFE RENTI AL/PL ATELE T hematology comments: MIXING PICKER TENDER Not Available [facility] ([facility]) [address] [place], [address], 02/16/2025 08:07:32 02/12/20 25 02/16/2025 IRON AND TIBC iron bind.cap.(TI BC) 322 ug/dL 250-45 0 normal Not Available [facility] ([facility]) [address] [place], [address], 02/16/2025 08:07:32 02/12/20 25 02/16/2025 IRON AND TIBC UIBC 240 ug/dL 111-34 3 normal Not Available [facility] ([facility]) [address] [place], [address], 02/16/2025 08:07:32 02/12/20 25 02/16/2025 IRON AND TIBC iron 82 ug/dL 38-169 normal Not Available [facility] ([facility]) [address] [place], [address], 02/16/2025 08:07:32 02/12/20 25 02/16/2025 IRON AND TIBC iron saturation 25 % 15-55 normal Not Available [facility] ([facility]) [address] [place], [address], 02/16/2025 08:07:32 02/12/20 25 02/16/2025 BRIANNA TIN ferritin 328 NG/mL 30-400 normal Not Available [facility] ([facility]) [address] [place], [address], 02/16/2025 08:07:33 02/12/20 25 02/15/2025 OKSANA EN AUTHO RIZAT ION written authorizatio n [place] t Oksana en Autho rizat ion Recei nisha. Autho rizat ion recei nisha from [employer] for Link Reque st on 02-15 Logge d by Ebonie pena Not Available [facility] ([facility]) [address] [place], [address], 02/16/2025 08:07:33 02/12/20 25 02/15/[address] PROBL EM request problem COMMEN T Test not perfo rmed due to the age of this speci men. TEST: 11733 [id number] CBC With Diffe renti al/Pl atele t Not Available [facility] ([facility]) [address] [place], [address], 02/16/2025 08:07:33 02/12/2002/12/2025 BASIC METAB OLIC PANEL (8) glucose 82 mg/dL 70-99 normal Not Available [facility] ([facility]) [address] [place], [address], 02/17/2025 06:09:21 02/12/20 25 02/12/2025 BASIC METAB OLIC PANEL (8) BUN 10 mg/dL 8-27 normal Not Available [facility] ([facility]) [address] [place], [address], 02/17/2025 06:09:21 02/12/20 25 02/12/2025 BASIC METAB OLIC PANEL (8) creatinine 0.94 mg/dL 0.76-1 .27 normal Not Available [facility] ([facility]) [address] [place], [address], 02/17/2025 06:09:21 02/12/20 25 02/12/2025 BASIC METAB OLIC PANEL (8) eGFR 83 mL/mi n/1.7 3 >59 normal Not Available [facility] ([facility]) [address] [place], [address], 02/17/2025 06:09:21 02/12/20 25 02/12/2025 BASIC METAB OLIC PANEL (8) BUN/creatini ne ratio 11 10-24 normal Not Available [facility] ([facility]) [address] [place], [address], 02/17/2025 06:09:21 02/12/20 25 02/12/2025 BASIC METAB OLIC PANEL (8) sodium 138 mmol/ L 134-14 4 normal Not Available [facility] ([facility]) [address] [facility] [place], [address], 02/17/2025 06:09:21 02/12/20 25 02/12/2025 BASIC METAB OLIC PANEL (8) potassium 4.2 mmol/ L 3.5-5. 2 normal Not Available [facility] ([facility]) [address] [facility] [place], [address], 02/17/2025 06:09:21 02/12/2002/12/2025 BASIC METAB OLIC PANEL (8) chloride 99 mmol/ L 96-106 normal Not Available [facility] ([facility]) [address] [facility] [place], [address], 02/17/2025 06:09:21 02/12/20 25 02/12/2025 BASIC METAB OLIC PANEL (8) carbon dioxide, total 24 mmol/ L 20-29 normal Not Available [facility] ([facility]) [address] [place], [address], 02/17/2025 06:09:21 02/12/20 25 02/12/2025 BASIC METAB OLIC PANEL (8) calcium 9.7 mg/dL 8.6-10 .2 normal Not Available [facility] ([facility]) [address] [place], [address], 02/17/2025 06:09:21 02/12/20 25 02/12/2025 HEPAT IC FUNCT ION PANEL (7) protein, total 6.9 g/dL 6.0-8. 5 normal Not Available [facility] ([facility]) [address] [place], [address], 02/17/2025 06:09:22 02/12/20 25 02/12/2025 HEPAT IC FUNCT ION PANEL (7) albumin 4.4 g/dL 3.8-4. 8 normal Not Available [facility] ([facility]) [address] [facility] [place], [address], 02/17/2025 06:09:22 02/12/20 25 02/12/2025 HEPAT IC FUNCT ION PANEL (7) bilirubin, total 0.4 mg/dL 0.0-1. 2 normal Not Available [facility] ([facility]) [address] [facility] [place] [place], [address], 02/17/2025 06:09:22 02/12/2002/12/2025 HEPAT IC FUNCT ION PANEL (7) bilirubin, direct 0.11 mg/dL 0.00-0 .40 normal Not Available [facility] ([facility]) [address] [facility] [place] [place], [address], 02/17/2025 06:09:22 02/12/20 25 02/12/2025 HEPAT IC FUNCT ION PANEL (7) alkaline phosphatase 114 IU/L 47-123 normal Ple ase note refer ence inter waldo llanes e Not Available [facility] ([facility]) [address] [facility] [place] [place], [address], 02/17/2025 06:09:22 02/12/2002/12/2025 HEPAT IC FUNCT ION PANEL (7) AST (SGOT) 31 IU/L 0-40 normal Not Available [facility] ([facility]) [address] [place], [address], 02/17/2025 06:09:22 02/12/2002/12/2025 HEPAT IC FUNCT ION PANEL (7) ALT (SGPT) 27 IU/L 0-44 normal Not Available [facility] ([facility]) [address] [place], [address], 02/17/2025 06:09:22 02/12/20 25 02/17/2025 ALK PHOS ISOEN ZYME liver fraction: 64 % 13-88 Not Available [facility] ([facility]) [address] [place], [address], 02/17/2025 06:09:22 02/12/2002/17/2025 ALK PHOS ISOEN ZYME bone fraction: 34 % 12-68 Not Available [facility] ([facility]) [address] [place], [address], 02/17/2025 06:09:22 02/12/2002/17/2025 ALK PHOS ISOEN ZYME intestinal frac.: 2 % 0-18 Not Available [facility] ([facility]) [address] [place], [address], 02/17/2025 06:09:22 02/12/2002/12/2025 ESR-W ES+CR P sedimentatio n rate-westerg angela 3 mm/HR 0-30 normal Not Available [facility] ([facility]) [address] [place], [address], 02/17/2025 06:09:23 02/12/2002/12/2025 ESR-W ES+CR P C-reactive protein, quant 1 mg/L 0-10 normal Not Available [facility] ([facility]) [address] [place], [address], 02/17/2025 06:09:23 02/12/2002/12/2025 AFP, SERUM , TUMOR MARKE R AFP, serum, tumor marker 2.9 NG/mL 0.0-8. 4 normal Marissa Diagn ostic s Elect marissa milum inesc ence Immun oassa y (ECLI A) Value s obtai addi with diffe rent assay metho ds or kits canno t be used inter llanes eably . Resul ts canno t be inter prete d as absol chickaloon evide nce of the prese nce or absen ce of malig nant disea se. This test is not inter preta ble in pregn ant femal es. Not Available [facility] ([facility]) [address] [facility], [place], [address], 02/17/2025 06:09:23 02/12/20 25 02/12/2025 HIV AB/P2 4 AG WITH REFLE X HIV Ab/P24 Ag screen Non Reacti ve non reacti ve HIV-1 /HIV- 2 antib odies and HIV-1 p24 antig en were NOT detec kath. There is no labor atory evide nce of HIV infec tion. HIV Negat annetta Not Available [facility] ([facility]) [address] [facility], [place], [address], 02/17/2025 06:09:24 02/12/2002/12/2025 GGT WITH REFLE X AMYLA SE/LI PASE GGT 20 IU/L 0-65 normal Not Available [facility] ([facility]) [address] [facility], [place], [address], 02/17/2025 06:09:24 02/13/20 25 02/12/2025 UA/M W/RFL X CULTU RE, ROUTI NE specific gravity 1.015 1.005- 1.030 normal Not Available [facility] ([facility]) [address] [place], [address], 02/15/2025 12:05:59 02/13/20 25 02/12/2025 UA/M W/RFL X CULTU RE, ROUTI NE pH 7.0 5.0-7. 5 normal Not Available [facility] ([facility]) [address] [place], [address], 02/15/2025 12:05:59 02/13/20 25 02/12/2025 UA/M W/RFL X CULTU RE, ROUTI NE urine-color Yellow yellow Not Available [facility] ([facility]) [address] [place], [address], 02/15/2025 12:05:59 02/13/20 25 02/12/2025 UA/M W/RFL X CULTU RE, ROUTI NE appearance Clear clear Not Available [facility] ([facility]) [address] [place], [address], 02/15/2025 12:05:59 02/13/20 25 02/12/2025 UA/M W/RFL X CULTU RE, ROUTI NE WBC esterase Negati ve negati ve Not Available [facility] ([facility]) [address] [place], [address], 02/15/2025 12:05:59 02/13/20 25 02/12/2025 UA/M W/RFL X CULTU RE, ROUTI NE protein Negati ve negati ve/tra ce Not Available [facility] ([facility]) [address] [place], [address], 02/15/2025 12:05:59 02/13/20 25 02/12/2025 UA/M W/RFL X CULTU RE, ROUTI NE glucose Negati ve negati ve Not Available [facility] ([facility]) [address] [place], [address], 02/15/2025 12:05:59 02/13/20 25 02/12/2025 UA/M W/RFL X CULTU RE, ROUTI NE ketones Negati ve negati ve Not Available [facility] ([facility]) [address] [place], [address], 02/15/2025 12:05:59 02/13/20 25 02/12/2025 UA/M W/RFL X CULTU RE, ROUTI NE occult blood Negati ve negati ve Not Available [facility] ([facility]) [address] [place], [address], 02/15/2025 12:05:59 02/13/20 25 02/12/2025 UA/M W/RFL X CULTU RE, ROUTI NE bilirubin Negati ve negati ve Not Available [facility] ([facility]) [address] [facility], [place], [address], 02/15/2025 12:05:59 02/13/20 25 02/12/2025 UA/M W/RFL X CULTU RE, ROUTI NE urobilinogen ,semi-qn 0.2 mg/dL 0.2-1. 0 normal Not Available [facility] ([facility]) [address] [facility], [place], [address], 02/15/2025 12:05:59 02/13/20 25 02/12/2025 UA/M W/RFL X CULTU RE, ROUTI NE nitrite, urine Negati ve negati ve Not Available [facility] ([facility]) [address] [facility], [place], [address], 02/15/2025 12:05:59 02/13/20 25 02/12/2025 UA/M W/RFL X CULTU RE, ROUTI NE microscopic examination Commen t Micro scopi c follo ws if indic ated. Not Available [facility] ([facility]) [address] [facility], [place], [address], 02/15/2025 12:05:59 02/13/20 25 02/12/2025 UA/M W/RFL X CULTU RE, ROUTI NE microscopic examination See below: Micro scopi c was indic ated and was perfo rmed. Not Available [facility] ([facility]) [address] [facility], [place], [address], 02/15/2025 12:05:59 02/13/20 25 02/13/2025 UA/M W/RFL X CULTU RE, ROUTI NE WBC None seen /hpf 0 - 5 Not Available [facility] ([facility]) [address] [facility], [place], [address], 02/15/2025 12:05:59 02/13/20 25 02/13/2025 UA/M W/RFL X CULTU RE, ROUTI NE RBC 0-2 /hpf 0 - 2 Not Available [facility] ([facility]) [address] [facility], [place], [address], 02/15/2025 12:05:59 02/13/20 25 02/13/2025 UA/M W/RFL X CULTU RE, ROUTI NE epithelial cells (non renal) None seen /hpf 0 - 10 Not Available [facility] ([facility]) [address] [facility], [place], [address], 02/15/2025 12:05:59 02/13/20 25 02/13/2025 UA/M W/RFL X CULTU RE, ROUTI NE epithelial cells (renal) MIXING PICKER TENDER Not Available [facility] ([facility]) [address] [facility], [place], [address], 02/15/2025 12:05:59 02/13/20 25 02/13/2025 UA/M W/RFL X CULTU RE, ROUTI NE casts None seen /lpf none seen Not Available [facility] ([facility]) [address] [facility], [place], [address], 02/15/2025 12:05:59 02/13/20 25 02/13/2025 UA/M W/RFL X CULTU RE, ROUTI NE cast type MIXING PICKER TENDER Not Available [facility] ([facility]) [address] [facility], [place], [address], 02/15/2025 12:05:59 02/13/20 25 02/13/2025 UA/M W/RFL X CULTU RE, ROUTI NE crystals MIXING PICKER TENDER Not Available [facility] ([facility]) [address] [facility], [place], [address], 02/15/2025 12:05:59 02/13/20 25 02/13/2025 UA/M W/RFL X CULTU RE, ROUTI NE crystal type MIXING PICKER TENDER Not Available [facility] ([facility]) [address] [facility], [place], [address], 02/15/2025 12:05:59 02/13/20 25 02/13/2025 UA/M W/RFL X CULTU RE, ROUTI NE mucus threads MIXING PICKER TENDER Not Available [facility] ([facility]) [address] [facility], [place], [address], 02/15/2025 12:05:59 02/13/20 25 02/13/2025 UA/M W/RFL X CULTU RE, ROUTI NE bacteria Modera te none seen/f ew abnormal Not Available [facility] ([facility]) [address] [facility], [place], [address], 02/15/2025 12:05:59 02/13/20 25 02/13/2025 UA/M W/RFL X CULTU RE, ROUTI NE yeast MIXING PICKER TENDER Not Available [facility] ([facility]) [address] [facility], [place], [address], 02/15/2025 12:05:59 02/13/20 25 02/13/2025 UA/M W/RFL X CULTU RE, ROUTI NE trichomonas MIXING PICKER TENDER Not Available [facility] ([facility]) [address] [facility], [place], [address], 02/15/2025 12:05:59 02/13/20 25 02/13/2025 UA/M W/RFL X CULTU RE, ROUTI NE comment MIXING PICKER TENDER Not Available [facility] ([facility]) [address] [place], [address], 02/15/2025 12:05:59 02/13/20 25 02/13/2025 UA/M W/RFL X CULTU RE, ROUTI NE urinalysis reflex Commen t This speci men has refle xed to a Urine Cultu re. Not Available [facility] ([facility]) [address] [facility], [place], [address], 02/15/2025 12:05:59 02/13/20 25 02/15/2025 UA/M W/RFL X CULTU RE, ROUTI NE urine culture, routine Final report abnormal Not Available [facility] ([facility]) [address] [facility], [place], [address], 02/15/2025 12:05:59 02/13/20 25 02/15/2025 UA/M W/RFL [...] ng units per mL Not Available [facility] ([facility]) [address] [facility], [place], [address], 02/15/2025 12:05:59 02/13/20 25 02/15/2025 UA/M W/RFL [...] R Vanco mycin S Not Available [facility] ([facility]) [address], [place], [address], 02/15/2025 12:05:59 02/18/2002/17/2025 fecal occul t blood , immun oassa y, stool RESULT positi ve Not Available In-Office Order Internal Use Only DO Not Attach Compendium DO Not Attach Compendium, Do Not Delete/merge, [id number] 02/11/2025 12:49:07 01/27/2001/23/2025 US, abdom en, limit ed US [...] repres enting hepati c steato sis. WSN: [id number] Orderi ng Physic gasper: Reagan Urbano ie Dictat ed By: Buster Bui MD Dictat ed Date/T lake: 9:08 am Review ed By: Buster Bui MD Signed By: Buster Bui MD Signed Date/T lake: 9:08 am Transc ribed By: CSB Transc ribed Date/T lake: 8:33 am Patien t Class: Outpat ient [email or web address] [facility] (Outpt Imaging) [address], [place], [address], 02/01/2025 10:40:34 02/14/20 25 02/11/2025 XR, chest , 2 view No observ ation record ed. [facility] [place] [address], [place], [address], 02/17/2025 13:17:41 03/05/20 25 03/05/2025 CT, abdom [...] mGy*cm . COMPAR TRISTEN: None. FINDIN GS: Aircraft Engine Technician View Findin gs, Lines and Tubes: None. [...] of L5-S1 with juan listhe sis and layout worker ior decomp ressio n. Modera te chroni c appear ing compre ssion deform ity of L2. 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 IMPRES ELSA: No acute abnorm ality within the abdome n or pelvis . WSN: [id number] Orderi ng Physic gasper: Reagan Urbano ie Dictat ed By: Dariusz Calix MD Dictat ed Date/T lake: 9:31 pm Review ed By: Vidhya dennis MD, Dariusz Robles Signed By: Dariusz Calix MD Signed Date/T lake: 9:31 pm Transc ribed By: ISELA Transc ribed Date/T lake: 9:21 pm Patien t Class: Outpat ient [email or web address] [facility] (Outpt Imaging) [address], [place], [address], 03/18/2025 17:00:00 03/10/2002/22/2025 trans thora cic echoc ardio gram (TTE) compl ete (cont rast/ bubbl e/3D PRN) No observ ation record ed. [facility] [address] [place], [address], 03/10/2025 10:11:23 03/11/2002/22/2025 , [facility] ardio gram No observ ation record ed. [address], [place], [address], 03/12/2025 07:35:33 03/25/20 ECG 12-le ad No observ ation record ed. [email or web address] [facility] [address] [place], [address], 03/25/2025 18:24:07 Result Notes None recorded. 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 6 10:19:45 Eruption [id number] Completed 12/03/2016 KODY Eugene [facility] 7 09:33:51 General examinat ion of patient Completed 200812/31/2013 RECORDED 01/18/20 09 3:07PM BY RUBEN MORALES MA, ANNOTATI ON/ADDEN DUM Emigdio Casas PA-C [address] [facility] [address], [place], [address], [facility] 6 10:19:45 General examinat ion of patient Completed 200801/01/2014 RECORDED 01/18/20 09 3:07PM BY RUBEN MORALES MA, AMARJIT ON/ADDEN DUM Emigdio Casas PA-C [address], [place], [address], [facility] 6 10:19:45 General examinat ion of patient Completed 200812/08/2013 RECORDED 01/18/20 09 3:07PM BY RUBEN MORALES MA, AMARJIT ON/ADDEN DUM Emigdiowyatt Tellezden PA-C [address], [place], [address], [facility] 6 10:19:45 Influenz a vaccine needed 68037756501 06 Completed 201012/31/2013 DATE: 04/30/20 11; RECORDED 08/22/19 13 10:53AM BY AMARJIT EUGENE ON/ADDEN DUM Emigdio Casas PA-C [address], [place], [address], [facility] 6 10:19:45 Influenz a vaccine needed 02842541462 06 Completed 201001/01/2014 DATE: 04/30/20 11; RECORDED 08/22/19 13 10:53AM BY AMARJIT EUGENE ON/ADDPEDRO DUM Emigdio Tellezden PA-C [address], [place], [address], [facility] 6 10:19:45 Influenz a vaccine needed 86929176417 06 Completed 201012/08/2013 DATE: 04/30/20 11; RECORDED 08/22/19 13 10:53AM BY AMARJIT EUGENE ON/ADDEN DUM Emigdio Tellezden PA-C [address], [place], [address], [facility] 6 10:19:45 Screenin g for malignan t neoplasm of colon Completed 201212/31/2013 RECORDED 08/22/19 13 10:53AM BY AMARJIT EUGENE ON/ADDEN DUM KODY Eugene, [facility] 7 09:33:55 Contact dermatit is 10981905 Completed 201212/31/2013 RECORDED 08/22/19 13 10:55AM BY AMARJIT EUGENE ON/ADDEN DUM KODY Eugene, [facility] 7 09:34:01 Eruption [id number] Completed 201212/31/2013 RECORDED 08/22/19 13 10:53AM BY AMARJIT EUGENE ON/ADDEN DUM KODY Eugene, [facility] 7 09:33:51 Screenin g for malignan t neoplasm of colon Completed 201201/01/2014 RECORDED 08/22/19 13 10:53AM BY AMARJIT EUGENE ON/ADDEN DUM KODY Eugene, [facility] 7 09:33:55 Contact dermatit is 03384611 Completed 201201/01/2014 RECORDED 08/22/19 13 10:55AM BY AMARJIT EUGENE ON/ADDEN DUM KODY Eugene, [facility] 7 09:34:01 Eruption [id number] Completed 201201/01/2014 RECORDED 08/22/19 13 10:53AM BY AMARJIT EUGENE ON/ADDEN DUM KODY Eugene, [facility] 7 09:33:51 Contact dermatit is 83929581 Completed 201212/08/2013 RECORDED 08/22/19 13 10:55AM BY AMARJIT EUGENE ON/ADDEN DUM KODY Eugene, [facility] 7 09:34:01 Eruption [id number] Completed 201212/08/2013 RECORDED 08/22/19 13 10:53AM BY AMARJIT EUGENE ON/ADDEN DUM KODY Eugene, [facility] 7 09:33:51 Rhabdomy olysis 030288793 Completed 201212/08/2013 RECORDED 08/22/19 13 10:53AM BY AMARJIT EUGENE ON/ADDEN DUM Aracely paul, [facility] 9 10:22:46 Adult health examinat ion Completed 201212/31/2013 IMPRESSI ON: EXAM TODAY, DOING GREAT, IS ACTIVE SCREENIN G UTD, WILL GET COLONOSC OPY; RECORDED 02/05/20 13 10:37AM BY AMARJIT EUGENE ON/ADDEN DUM KODY Eugene, [facility] 7 09:45:31 Adult health examinat ion Completed 201201/01/2014 IMPRESSI ON: EXAM TODAY, DOING GREAT, IS ACTIVE SCREENIN G UTD, WILL GET COLONOSC OPY; RECORDED 02/05/20 13 10:37AM BY AMARJIT EUGENE ON/ADDEN DUM KODY Eugene, [facility] 7 09:45:31 Adult health examinat ion Completed 201212/08/2013 IMPRESSI ON: EXAM TODAY, DOING GREAT, IS ACTIVE SCREENIN G UTD, WILL GET COLONOSC OPY; RECORDED 02/05/20 13 10:37AM BY AMARJIT EUGENE ON/ADDEN DUM KODY Eugene, [facility] 7 09:45:31 Active or passive immuniza tion Completed 201312/31/2013 RECORDED 06/29/19 14 9:09AM BY ARACELY Najera MD, OFFICE VISIT Emigdio Casas PA-C [address] [facility] [address], [place], [address], [facility] 6 10:19:45 Psychose xual dysfunct ion associat ed with inhibite d libido 826961245 Completed 201312/31/2013 RECORDED 06/29/19 14 8:37AM BY AMARJIT EUGENE ON/ADDEN DUM Emigdio ELIAS-C [address], [place], [address], [facility] 6 10:19:45 Active or passive immuniza tion Completed 201301/01/2014 RECORDED 06/29/19 14 9:09AM BY ARACELY Najera MD, OFFICE VISIT Emigdiowyatt ELIAS-C [address], [place], [address], [facility] 6 10:19:45 Psychose xual dysfunct ion associat ed with inhibite d libido 545691982 Completed 201301/01/2014 RECORDED 06/29/19 14 8:37AM BY AMARJIT EUGENE ON/ADDEN DUM Emigdio ELIAS-C [address], [facility] [place], [address], [facility] 6 10:19:45 Active or passive immuniza tion Completed 201312/08/2013 RECORDED 06/29/19 14 9:09AM BY ARACELY Najera MD, OFFICE VISIT Emigdiowyatt ELIAS-C [address], [place], [address], [facility] 6 10:19:45 Psychose xual dysfunct ion associat ed with inhibite d libido 545075803 Completed 201312/08/2013 RECORDED 06/29/19 14 8:37AM BY AMARJIT EUGENE ON/ADDEN DUM Emigdio ELIAS-C [address], [place], [address], 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 6 10:19:45 Dizzines s and giddines s 300617073 Completed 201312/31/2013 IMPRESSI ON: LIKELY FROM INCREASE D LORAZEPA M DOSE. WILL TRY TO CHANGE TO TEMAZAPA M. SEE IF CAN GET BY THE INSURANC E ISSUES; RECORDED 08/18/19 14 8:10AM BY AMARJIT JEAN ON/GAURAV EMERSONC [address] [facility] [address], [place], [address], [facility] 6 10:19:45 Measurem ent finding Completed 201312/31/2013 IMPRESSI ON: HIGHEST WAS 100, THEN 550, HAS NOT BEEN CHECKED IN MONTHS, NOT ON ANY CHOLESTE ROL MEDS, CHECK CPK; RECORDED 08/18/19 14 8:10AM BY AMARJIT JEAN ON/GAURAV DUM Emigdio EMERSONC [address], [place], [address], [facility] 6 10:19:45 Abnormal involunt chucky movement 165561512 Completed 201312/31/2013 IMPRESSI ON: EMG THIS WEEK; RECORDED 08/18/19 14 8:10AM BY AMARJIT JEAN ON/ADDEN DUM Emigdio Casas PA-C [address], [place], [address], [facility] 6 10:19:45 Malaise and fatigue 922711688 Completed 201312/31/2013 RESOLVED DATE: 08/18/19 14; RECORDED 08/18/19 14 8:10AM BY AMARJIT JEAN ON/ADDEN DUM Emigdio Casas PA-C [address] [facility] [address], [place], [address], [facility] 6 10:19:45 Pure hypercho lesterol emia 933762359 Completed 201312/31/2013 RECORDED 08/18/19 14 8:10AM BY AMARJIT JEAN ON/ADDEN DUM Emigdio ELIAS-C [address], [place], [address], [facility] 6 10:19:45 Insomnia 825552619 Completed 201312/31/2013 IMPRESSI ON: DOWN TO ONE TEMAZEPA M FOR SLEEP; RECORDED 08/18/19 14 8:10AM BY AMARJIT JEAN ON/ADDEN DUM Wendy Key MA null, [facility] 8 08:33:08 Fibromyo sitis 98777585 Completed 201312/31/2013 RECORDED 08/18/19 14 8:10AM BY AMARJIT JEAN ON/ADDEN DUM Emigdio ELIAS-C [address] [facility] [address], [place], [address], [facility] 6 10:19:45 Immuniza tion refused Completed 201312/31/2013 RECORDED 08/18/19 14 8:10AM BY AMARJIT JEAN ON/ADDEN DUM Emigdio Tellezden PA-C [address], [place], [address], [facility] 6 10:19:45 Disorder of skin and/or subcutan eous tissue 41959276 Completed 201312/31/2013 IMPRESSI ON: RIGHT LATERAL THIGH REFER TO DERM FOR EVAL, HE WILL SET UP; RECORDED 08/18/19 14 8:10AM BY AMARJIT JEAN ON/ADDEN DUM Emigdio Casas PA-C [address], [place], [address], [facility] 6 10:19:45 Dermatop hytosis of the perianal area Completed 201312/31/2013 RECORDED 08/18/19 14 8:10AM BY AMARJIT JEAN ON/ADDEN DUM Emigdio Casas PA-C [address], [place], [address], 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 6 10:19:45 Dizzines s and giddines s 719578623 Completed 201301/01/2014 IMPRESSI ON: LIKELY FROM INCREASE D LORAZEPA M DOSE. WILL TRY TO CHANGE TO TEMAZAPA M. SEE IF CAN GET BY THE INSURANC E ISSUES; RECORDED 08/18/19 14 8:10AM BY AMARJIT JEAN ON/ADDPEDRO ELIAS-C [address], [place], [address], [facility] 6 10:19:45 Measurem ent finding Completed 201301/01/2014 IMPRESSI ON: HIGHEST WAS 100, THEN 550, HAS NOT BEEN CHECKED IN MONTHS, NOT ON ANY CHOLESTE ROL MEDS, CHECK CPK; RECORDED 08/18/19 14 8:10AM BY AMARJIT JEAN ON/ADDPEDRO Casas PA-C [address], [place], [place], [address], [facility] 6 10:19:45 Abnormal involunt chucky movement 776998952 Completed 201301/01/2014 ALLAI ON: EMG THIS WEEK; RECORDED 08/18/19 14 8:10AM BY AMARJIT JEAN ON/ADDPEDRO ELIAS-C [address], [place], [address], [facility] 6 10:19:45 Malaise and fatigue 959139095 Completed 201301/01/2014 RESOLVED DATE: 08/18/19 14; RECORDED 08/18/19 14 8:10AM BY AMARJIT JEAN ON/ADDPEDRO Casas PA-C [address], [place], [address], [facility] 6 10:19:45 Pure hypercho lesterol emia 161433205 Completed 201301/01/2014 RECORDED 08/18/19 14 8:10AM BY AMARJIT JEAN ON/GAURAV ELIAS-C [address], [place], [address], [facility] 6 10:19:45 Insomnia 943641452 Completed 201301/01/2014 IMPRESSI ON: DOWN TO ONE TEMAZEPA M FOR SLEEP; RECORDED 08/18/19 14 8:10AM BY NATALIE PATINO I, BIRDIEATI ON/ADDEN DUM [facility] 8 08:33:08 Fibromyo sitis 85092145 Completed 201301/01/2014 RECORDED 08/18/19 14 8:10AM BY BIRDIE JEANATI ON/ADDEN DUM Emigdio Tellezden PA-C [address], [place], [address], [facility] 6 10:19:45 Immuniza tion refused Completed 201301/01/2014 RECORDED 08/18/19 14 8:10AM BY BIRDIE JEANATI ON/ADDEN DUM Emigdio Casas PA-C [address], [place], [address], [facility] 6 10:19:45 Disorder of skin and/or subcutan eous tissue 74950757 Completed 201301/01/2014 IMPRESSI ON: RIGHT LATERAL THIGH REFER TO DERM FOR EVAL, HE WILL SET UP; RECORDED 08/18/19 14 8:10AM BY BIRDIE JEANATI ON/ADDEN DUM Emigdio Tellezden PA-C [address], [place], [address], [facility] 6 10:19:45 Dermatop hytosis of the perianal area Completed 201301/01/2014 RECORDED 08/18/19 14 8:10AM BY BIRDIE JEANATI ON/ADDEN DUM Emigdio Tellezden PA-C [address], [place], [address], 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 6 10:19:45 Dizzines s and giddines s 390238721 Completed 201312/08/2013 IMPRESSI ON: LIKELY FROM INCREASE D LORAZEPA M DOSE. WILL TRY TO CHANGE TO TEMAZAPA M. SEE IF CAN GET BY THE INSURAN E ISSUES; RECORDED 08/18/19 14 8:10AM BY AMARJIT JEAN ON/ADDPEDRO ELIAS-C [address], [place], [address], [facility] 6 10:19:45 Measurem ent finding Completed 201312/08/2013 IMPRESSI ON: HIGHEST WAS 100, THEN 550, HAS NOT BEEN CHECKED IN MONTHS, NOT ON ANY CHOLESTE ROL MEDS, CHECK CPK; RECORDED 08/18/19 14 8:10AM BY AMARJIT JEAN ON/ADDPEDRO ELIAS-C [address], [place], [address], [facility] 6 10:19:45 Abnormal involunt chucky movement 795010360 Completed 201312/08/2013 IMPRESSI ON: EMG THIS WEEK; RECORDED 08/18/19 14 8:10AM BY AMARJIT JEAN ON/GAURAV ELIAS-C [address], [place], [address], [facility] 6 10:19:45 Malaise and fatigue 522590747 Completed 201312/08/2013 RESOLVED DATE: 08/18/19 14; RECORDED 08/18/19 14 8:10AM BY AMARJIT JEAN ON/ADDEN DUM Emigdio Casas PA-C [address], [place], [address], [facility] 6 10:19:45 Pure hypercho lesterol emia 062685267 Completed 201312/08/2013 RECORDED 08/18/19 14 8:10AM BY BIRDIE JEANATI ON/ADDEN DUM Emigdio Casas PA-C [address], [place], [address], [facility] 6 10:19:45 Insomnia 488151146 Completed 201312/08/2013 IMPRESSI ON: DOWN TO ONE TEMAZEPA M FOR SLEEP; RECORDED 08/18/19 14 8:10AM BY AMARJIT JEAN ON/ADDEN DUM [facility] 8 08:33:08 Fibromyo sitis 40166948 Completed 201312/08/2013 RECORDED 08/18/19 14 8:10AM BY AMARJIT JEAN ON/ADDEN DUM Emigdio Casas PA-C [address], [place], [address], [facility] 6 10:19:45 Immuniza tion refused Completed 201312/08/2013 RECORDED 08/18/19 14 8:10AM BY AMARJIT JEAN ON/ADDEN DUM Emigdio Casas PA-C [address], [place], [address], [facility] 6 10:19:45 History of clinical finding in subject 730310875 Completed 201312/03/2016 RECORDED 08/18/19 14 8:11AM BY NATALIE PATINO I, OFFICE VISIT KODY Eugene, [facility] 7 09:34:07 Disorder of skin and/or subcutan eous tissue 94673690 Completed 201312/08/2013 IMPRESSI ON: RIGHT LATERAL THIGH REFER TO DERM FOR EVAL, HE WILL SET UP; RECORDED 08/18/19 14 8:10AM BY NATALIE PATINO I, BIRDIEATI ON/ADDEN DUM Emigdio ELIAS-C [address], [place], [address], [facility] 6 10:19:45 Dermatop hytosis of the perianal area Completed 201312/08/2013 RECORDED 08/18/19 14 8:10AM BY NATALIE PATINO I, BIRDIEATI ON/ADDEN DUM Emigdio ELIAS-C [address] [facility] [address], [place], [address], [facility] 6 10:19:45 Vitamin D deficien cy 77173202 Completed 201312/08/2013 RECORDED 08/18/19 14 8:10AM BY NATALIE PATINO I, BIRDIEATI ON/ADDEN DUM KODY Varela, [facility] 8 08:33:24 Adult health examinat ion Completed 201306/04/2016 IMPRESSI ON: PT IS DOING WELL, ACTIVE, EATS WELL; RECORDED 11/13/19 14 9:23AM BY ARACELY Najera MD, OFFICE VISIT KODY Eugene, [facility] 7 09:45:31 Screenin g for malignan t neoplasm of colon Completed 201312/03/2016 RECORDED 11/13/19 14 1:55PM BY RHIANNON CARDONAIC AL SUMMARY KODY Eugene, [facility] 7 09:33:55 Overweig ht [id number] Completed 201312/30/2017 RECORDED 11/13/19 14 8:52AM BY RUBEN MORALES MA, OFFICE VISIT KODY Varela, [facility] 8 08:33:12 Degenera tion of interver tebral disc Completed 201312/03/2016 RECORDED 11/13/19 14 8:44AM BY RUBEN MORALES MA, OFFICE VISIT KODY Eugene, [facility] 7 09:34:10 Contact dermatit is 64410782 Completed 201312/03/2016 IMPRESSI ON: ARMS TX BELOW; RECORDED 11/13/19 14 8:44AM BY RUBEN MORALES MA, OFFICE VISIT [facility] 7 09:34:01 [facility] hyperten elsa 79752445 Active 2013 KODY Varela, [facility] 8 08:33:38 Hyperlip idemia 05632728 Completed 201312/11/2018 Aracely melendez [facility] 9 10:22:52 Insomnia 688982501 Active 2013 KODY Varela [facility] 8 08:33:08 Tobacco user 658443869 Completed 201312/08/2015 RECORDED 11/13/19 14 8:56AM BY RUBEN MORALES MA, OFFICE VISIT [facility] 6 08:54:33 Rhabdomy olysis 852086914 Completed 201312/11/2018 Aracely paul [facility] 9 10:22:46 Vitamin D deficien cy 92013735 Active 2013 Wendy Key MA null, [facility] 8 08:33:24 Ex-smoke r 1500147 Active 2015 Ruben jo MA null, [facility] 6 08:54:38 Hyperten elsa monitori ng status 530518226 Completed 202108/21/2023 disenrol led MIKI DOUGLAS MD [address] [facility] [address], [place], [address], [facility] 4 09:09:40 Lumbar radiculo jaja 306601676 Active 2022 MIKI DOUGLAS MD [address] [facility] [address], [place], [address], [facility] 3 12:43:19 Heart murmur 72842329 Active 2023 MIKI DOUGLAS MD [address] [facility] [address], [place], [address], [facility] 4 14:54:21 Foot-asif p 1269036 Active 2023 MIKI DOUGLAS MD [address] [facility] [address], [place], [address], [facility] 4 16:27:46 Compress ion fracture of L2 73318375442 147173 Active 2024 Devon Maldonado MD [address] [facility] [address], [place], [address], [facility] 5 17:24:07 Problem Notes None recorded. Procedures Surgical History Date Name Laterality Status Provider Name and Address Organization Details Recorded Time 02/13/20 25 FOBT completed Ruben israel MA [facility] 02/12/2025 16:27:11 12/26/19 25 injection of sacroiliac joint completed Jaky Flores [facility] 12/25/2024 10:43:47 03/31/20 25 Advanced Care Planning completed MIKI DOUGLAS MD [address] [address], [place], [address], [facility] 08/24/2024 09:39:51 08/22/19 24 Advanced Care Planning completed Sun Callejas [facility] 08/23/2023 10:18:50 06/20/19 24 lumbar spinal fusion completed Jaky Flores [facility] 06/20/2023 13:52:48 06/20/19 24 decompression of lumbar spine completed Jaky Flores [facility] 06/20/2023 13:52:57 09/26/19 23 laminectomy completed Jaky Flores [facility] 09/25/2022 12:48:32 06/22/19 21 Six-Item Cognitive Test completed Charo Morgan MA [facility] 06/22/2020 12:56:05 01/08/20 20 injection completed Stephanie Dover [facility] 01/15/2020 15:21:45 06/11/19 20 Mini-Cog Test completed Yuki Sanches MA [facility] 06/11/2019 09:03:24 06/09/19 19 Mini-Cog Test completed Yuki Sanches MA [facility] 06/09/2018 10:10:59 06/06/19 18 Fall Risk Assessment completed Yuki Sanches MA [facility] 06/06/2017 08:42:17 06/06/19 18 Mini-Cog Test completed Yuki Sanches MA [facility] 06/06/2017 08:42:47 06/04/19 17 Fall Risk Assessment completed Yuki Sanches MA [facility] 06/04/2016 09:49:43 06/04/19 17 Mini-Cog Test completed Yuki Sanches MA [facility] 06/04/2016 09:49:04 06/04/19 17 Advanced Care Planning completed Aracely lockwood [facility] 06/04/2016 10:21:57 06/03/19 16 Fall Risk Assessment completed Yuki Sanches MA [facility] 06/03/2015 09:06:29 06/03/19 16 Mini-Cog Test completed Yuki Sanches MA [facility] 06/03/2015 09:07:31 07/29/19 14 Colonoscopy completed Lynne Rachel [facility] 01/23/2022 15:48:21 Imaging Results None recorded. Procedure Notes None recorded. Medical Equipment None Reported. Allergies Allergen ID Allergen Name Allergen Category Reaction Reaction Severity Criticality Documentation Date Start Date Code Code System Note Provider Name and Address Organization Details Recorded Time 1213 Product containin g angiotens in-conver ting enzyme inhibitor (product) medicatio n myalgias (muscle pain) Not available Not available 12/08/20132013 48966 009 SNOMED MUSCL ES SPASM S KODY Pleitez [facility] 6 08:53:48 1214 Lipitor medicatio n other Not available Not available 12/08/20132013 29278 5 RxNorm RHABD OMYOL YSIS KODY Pleitez [facility] 6 08:53:53 73472 temazepam medicatio n other Not available Not available 12/08/2015 03213 RxNorm night smith KODY Pleitez [facility] 6 08:58:04 24807 Repatha medicatio n hives Not available [facility] 12/07/2024 10895 96 RxNorm KODY Eugene [facility] 5 09:50:54 Medications Name Sig Start [...] completed RECORDED 09/30/19 08 3:55PM BY CORDELIA Brynat NP, ANNOTATI ON/GAURAV DUM; Not Available Not [...] 14 9:06AM BY JADA HATCH, ANNOTATI ON/GAURAV DUM; Not Available Not Available Not Available clotrimaz [...] REFILL REQUEST; THIS ORDER DISCONTI NUED PER CRESCEL-SPA N. Not Available Not Available Not Available [...] Updated DateTime 5 175.26 cm 27 kg/m2 76966.4 g 64 /min 96 % 97.9 [degF] 96/57 mm[Hg] Sudha Betts MA [facility] [place] 5 11:21:42 Social History Question Answer Notes LastModified by Organizat ion Details LastModified Time Tobacco Smoking Status Former Smoker KODY Eugene, [facility] [place] 05/13/2014 08:48:14 Do You Have An Advance Directive? Yes Jnig Brown Information not available 12/08/2015 Is Blood [...] To Be High Risk For COVID-19? No [email or web address] Information not available 12/02/2019 What Type Of Diet Are You Following? REGULAR [email or web address] Information not available 05/13/2014 Which Illicit Or Recreational Drugs Have You Used? None Information not available 12/08/2015 When Did You Quit Smoking? 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 No [email or web address] Information not available 12/02/2019 Are You Or Anyone In Your Household A Health Care Provider Or Emergency Responder? No [email or web address] Information not available 12/02/2019 To The Best Of Your Knowledge Have You Been In Close Proximity To Any Individual Who Tested Positive For COVID-19? No [email or web address] Information not available 12/02/2019 *AWV ONLY* Are You Presently Prescribed Opioid Medication By PCP Or Specialist? If YES -Provider Assess The Benefit For Other, Non-opioid Pain Therapies Instead, Even If The Patient Does Not Have OUD But Is Possibly At Risk. No [email or web address] Information not available 06/23/2021 Have You Recently Traveled To A [facility]- High Risk Area Or Gathering In The Last 10 Days? No [email or web address] Information not available 06/22/2020 What Was The Date Of Your Most Recent Tobacco Screening? 08/24/2024 [email or web address] Information not available 08/24/2024 How Many Children Do You Have? 2 Information not available 05/13/2014 What Is Your Current Pack Years? 10-19packye ars [email or web address] Information not available 06/23/2021 Do You Use Protection During Sex? No Information not available 12/08/2015 Seat Belts Used Routinely Yes [email or web address] Information not available 05/13/2014 Are You Sexually Active? Yes Information not available 12/08/2015 Smoke Alarm In Home Yes [email or web address] Information not available 05/13/2014 Are You Passively Exposed To Smoke? No Information no t available 12/08/2015 General Stress Level Medium [email or web address] Information not available 08/24/2024 Do You Use Sunscreen Routinely? Yes [email or web address] Information not available 05/13/2014 How Many Years Have You Smoked Tobacco? 25 [email or web address] Information not available 05/13/2014 Sex: Unknown Functional Status Question Answer Note LastModified by Organizat ion Details LastModified Time What is your level of alcohol consumption? Occasional [email or web address] Information not available 05/13/2014 Do you or have you ever used smokeless tobacco? Never used smokeless tobacco Information not available 06/22/2020 Are you currently employed? No retired Information not available 12/08/2015 Are you able to walk independently without assistance or assistive devices? YESWOREST [email or web address] Information not available 06/23/2021 Are you able to care for yourself independently? 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 Never used electronic cigarettes Information not available 06/22/2020 What is your exercise level? Moderate golf 4 x week Information not available 12/08/2015 Mental Status None recorded. Family History Relationship Description Onset Age of this Age Resolved Age Notes LastModified by Organization Details LastModified Time Brother Carcinoma in situ of colon michelle Not available 09:31:12 Notes:No breast cancer Medical History Condition Response Muscle, Joint, or Bone Problems Y Eczema Y High Cholesterol Y Hypertension Y Immunizations Vaccine Type Date Status Note Provider Name and Address Organization Details Recorded Time Tdap 007 completed Not Available [facility] 12/08/2013 13:26:33 pneumococcal polysaccharide PPV23 014 completed Not Available [facility] 12/08/2013 13:26:33 Pneumococcal conjugate PCV 13 015 completed KODY Eugene [facility] 01/08/2022 10:10:56 Td (adult), 2 Lf tetanus toxoid, preservative free, adsorbed 019 completed KODY Eugene [facility] 01/08/2022 10:10:56 zoster recombinant 024 cancelled patient objection MIKI DOUGLAS MD [address], [phone], [facility] 08/22/2023 09:36:05 Influenza, high-dose, trivalent, PF 024 cancelled patient objection MIKI DOUGLAS MD [address], [phone], [facility] 02/11/2024 11:17:45 Past Encounters Encounter ID Performer Location Encounter Start Date Encounter Closed Date Diagnosis/Indication Diagnosis SNOMED-CT Code Diagnosis ICD10 Code Diagnosis IMO Codes Diagnosis Note [id number] MIKI DOUGLAS MD Main Office [address] [place] [address] 02/11/2025 11:04:48 02/11/2025 12:15:39 Alkaline phosphatase above reference range 772643731 R74.8 480076 - noted to be 122- will check repeat Unintentio nal weight loss 628145596 R63.4 312537 - has lost 27lbs since 03/2024- associated with decrease appetite and decreased portions- ordered chest x-ray- ultrasound sound gall-bladd er ordered due to intermitte nt right sided abdominal pain was normal- ordered UA, inflammato ry markers, liver panel and BMP- will check HIV and hepatitis panel- ordered FOBT- ordered for CT abdomen and pelvis Idiopathic hypotension 920904069 I95.0 673576 - BP has been trending down- pt had been experienci ng light-head iness especially when changing positions- BP today is 96/57- stopped amlodipine 5mg QD- c/w metoprolol tartrate 25mg BID Hypercholesterolemia 136 18895 E78.00 22090 - improved- ASCVD score of 29%- lipid [...] cardiologi st does not just prescribe medication Health Concerns Section Related Observation LastModified by Organization Detai ls LastModified Time None Recorded Concern Status LastModified by Organization Details LastModified Time None Recorded Payers Encounter Date Sequence Insurance Name Policy Number Policy Patel Covered Member ID Patel Member ID Guarantor Name 02/11/2025 1 [employer] - MEDICARE ADVANTAGE PLAN (MEDICARE REPLACEMENT HMO) [id number] Neil Brown [id number] Neil Brown Notes Date Note Type Note [...] having some light-headiness. Reduced carbohydrates and beer. MIKI DOUGLAS MD [address] [address], [place], [address], [facility] 02/11/2025 12:57:09
== END 2025-04-16 10:09 | disposition home or self-care (01) ==
LOC: HO.HPHYS 09:39
PROVIDERS: Visit Provider Physical Medicine & Rehabilitation
DX: M53.3 Sacrococcygeal disorders, not elsewhere classified (principal); M46.1 Sacroiliitis, not elsewhere classified
CPT/HCPCS: 27096

== ENCOUNTER 2025-05-06 09:29 | Outpatient (AMB) | payer MEDICARE, SELFPAY ==
[2025-05-06 09:48] VITALS: BMI 27.4
--- NOTE | 2025-05-06 09:48 | A.PHYSOV ---
Vital Signs 05/06/25 09:48 Height 5 ft 8 in Weight 180 lb BMI 27.4 Intake Visit Reasons: F/U after injection 04/16/2025 Intake Note: Patient is a 79 year old male in office to for a follow up after Right Sacroiliac Joint Injection 04/16/25. Patient feels good after injection. 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 He has a history of left foot drop and ambulates with an ankle-foot orthosis and a cane for stability. He has a history of severe spinal stenosis at the L5-S1 level and underwent an L5-S1 fusion by Dr. Ramesh in May 2023, which significantly improved his ability to walk. He was doing well until he fell in his kitchen on May 30, 2024, after which he experienced pain concentrated in his right lower back and buttock, consistent with sacroiliac joint mediated pain. He has responded well to sacroiliac joint injections, with one on December 25, 2024, providing 90% pain relief. He received a repeat right sacroiliac joint injection on April 16, 2025, and reports that his back is now good. For pain management, he utilizes gabapentin and THC gummies. He also reports pain from arthritis, which is exacerbated by the weather. Pain Description - Location: Primary pain location had been the right lower back and right buttock following a fall. - Current Status: Reports his back pain is currently good following a recent injection. - Other Pain: Reports unspecified arthritis pain. - Exacerbating Factors: Weather exacerbates his arthritis pain. Results - Procedures: A right sacroiliac joint injection on December 25, 2024, provided 90% pain relief. - Procedures: A repeat right sacroiliac joint injection was performed on April 16, 2025. [facility] Medical History (Updated 05/06/25 @ 12:44 by Parrish Hernandes DO) Post laminectomy syndrome Sacroiliac inflammation Sacroiliac dysfunction Surgical History History of lumbar fusion (Unknown) History of carotid endarterectomy (Unknown) History of back surgery (Unknown) Social History Household Members: Spouse Alcohol intake: current Alcohol intake frequency: holidays/special occasions only Review of Systems Narrative Review of Systems - Musculoskeletal: Reports arthritis pain, which is worsened by the weather. - Musculoskeletal: Denies significant back pain, states it is good. - Neurological: Reports a history of left foot drop. Denies change in bowel bladder habits. Denies any fever or chills. Physical Exam Exam Exam: Physical Exam Patient appears to be in no acute distress. Gait was slightly antalgic on the left. Tenderness with palpation over right SI sulcus. Right SI compression test was positive. Lentner test was positive on the right. Heel walk and toe walk were not tested. Left foot drop was demonstrated with AFO in place. Patient ambulates with a single-point cane. No upper motor neuron signs. Vital Signs: BMI result Body Mass Index 27.4 Assessment & Plan Assessment & Plan (1) Sacroiliac dysfunction: Code(s): M53.3 - Sacrococcygeal disorders, not elsewhere classified Category: Medical (2) Sacroiliac inflammation: Code(s): M46.1 - Sacroiliitis, not elsewhere classified Category: Medical (3) Post laminectomy syndrome: Code(s): M96.1 - Postlaminectomy syndrome, not elsewhere classified Category: Medical Plan Pain Management - Analgesia: Patient uses gabapentin and THC gummies at night. - Interventions: He is status post a right SI joint injection on April 16, 2025. - Interventions: A previous SI joint injection on December 25, 2024 provided 90% pain relief. - Activities of Daily Living: He uses a cane for stability to prevent falls, not for pain. - Affect: Patient reports that his back is currently good. - Adverse Effects: None reported. - Aberrant Drug Related Behaviors: None noted. Plan Patient was informed and verbally consented to the use of an ambient scribe for clinic note documentation during this visit. 1. Chronic Low Back Pain / Right Sacroiliac Joint Pain The patient reports his back is good following a recent right sacroiliac joint injection on April 16, 2025. He will continue his current pain management regimen, which includes gabapentin and THC gummies. A follow-up appointment will be scheduled for mid-July after he returns from [place]. 2. Gait Instability / Left Foot Drop The patient has a history of left foot drop and uses a cane for stability to prevent falls. He will continue to use his ankle-foot orthosis and cane as needed for stability. 3. Arthritis The patient reports ongoing pain from arthritis, which he notes is exacerbated by the weather. He will continue his current regimen, including THC gummies at night, for symptom management. Discussion Notes I discussed the patient's condition with him. He feels his back pain is well-controlled following his recent SI joint injection. We discussed the need for him to continue using his cane for stability to prevent falls, which he understands. We arranged for a follow-up visit in mid-July, and he will call the office in June to schedule. I wished him well on his upcoming trip to [place] and for the holidays. Patient Instructions - Continue to use your cane to help with balance and prevent falls. - Continue taking your current medications as prescribed, including gabapentin and THC gummies. - Please call our office in June to schedule a follow-up appointment for the middle of July. - Enjoy your trip to [place] and have a happy holiday season. Coding Level of Care Code Est Pt Level 3 (53126) Add On Problem Visit Only Diagnoses Sacroiliac dysfunction M53.3 Sacroiliac inflammation M46.1 Post laminectomy syndrome M96.1
== END 2025-05-06 10:34 | disposition home or self-care (01) ==
PROVIDERS: Visit Provider Physical Medicine & Rehabilitation
DX: M53.3 Sacrococcygeal disorders, not elsewhere classified (principal); M46.1 Sacroiliitis, not elsewhere classified; M96.1 Postlaminectomy syndrome, not elsewhere classified
CPT/HCPCS: 99213; G2211

== ENCOUNTER → 2025-05-06 09:29 | Outpatient (BNVA) | payer MEDICARE, SELFPAY | PROVIDERS: Visit Provider Physical Medicine & Rehabilitation | DX: M53.3 Sacrococcygeal disorders, not elsewhere classified (principal); M46.1 Sacroiliitis, not elsewhere classified; M96.1 Postlaminectomy syndrome, not elsewhere classified; Z79.899 Other long term (current) drug therapy; M54.50 Low back pain, unspecified; G89.29 Other chronic pain; R26.89 Other abnormalities of gait and mobility; M21.372 Foot drop, left foot; M19.90 Unspecified osteoarthritis, unspecified site | CPT/HCPCS: 99212 ==